=== PATIENT | male | born 1940 | race Caucasian/White ===

== ENCOUNTER → 2024-03-07 08:42 | Outpatient (REF) | payer OTHER, SELFPAY | LOC: DHVS 08:42 | PROVIDERS: ATTENDING PHYSICIAN Surgery Vascular Surgery; FAMILY PHYSICIAN Internal Medicine | DX: I65.23 Occlusion and stenosis of bilateral carotid arteries (principal) | CPT/HCPCS: 93880 ==

== ENCOUNTER 2024-07-08 20:01 | Inpatient (IN) | payer OTHER, SELFPAY ==
[2024-07-08] VITALS (10 sets, daily range): BP systolic 141–162; BP diastolic 57–90; BMI 22.3
--- NOTE | 2024-07-08 12:38 | ED.GENMED ---
ED Provider Triage
-
Patient seen by provider in Triage?: Seen in Triage
Attestation: A medical screening examination has been initiated by a qualified medical provider. Based on the assessment performed at this time, it has been determined that an emergent medical condition may exist and the patient has been informed
that further medical evaluation and possible additional diagnostic testing may be needed.
HPI: 84-year-old male presents to the emergency department with spouse for evaluation of headache, vomiting, and confusion beginning late last night. She states that he was not aware who she was and thought his mother was still alive. states
the confusion has improved as of today and currently he can answer all questions. He has also been coughing. No reported fevers at home
GENERAL: Alert , in no apparent distress
EYE: No visual abnormalities.
NECK: Trachea midline
ENT: No visible abnormalities.
LUNGS: No acute respiratory distress
NEUROLOGICAL: Alert and oriented
SKIN: Skin intact. No visible changes.
MUSCULOSKELETAL: Moving extremities normally
PSYCH: Normal and appropriate interaction.
A/P: Given the presence of headache, coughing, and vomiting will check for COVID, obtain labs including lipase and chest x-ray, at this time the patient is oriented and answering questions appropriately
This is a medical evaluation conducted in person to initiate diagnostic evaluation and provide initial therapeutics. Please see further documentation by the treating clinician.
History of Present Illness
General
Chief Complaint: Change in Mental Status
Past History
Past History
ED Past Medical History: CVA (/TIA), HTN, Hypercholesterolemia, NIDDM, Seizures and Other (Postoperative urinary retention. Obstructive sleep apnea, kidney stones)
ED Past Surgical History: Other (Eye surgery, carotid endarterectomy 06/09/20)
Social History
Tobacco: Non-smoker
Alcohol: None
Drug: None
Personal:
Living: assisted living ([facility])
Employment: Retired
Family History
Family History: Other (Reviewed and non-contributory)
Course
Orders/Labs/Results
Orders:
Orders
07/08/24 12:33
Complete Blood Count/With Diff Urgent
Comprehensive Metabolic Panel Urgent
Lipase Urgent
07/08/24 12:34
COVID-19 Antigen Urgent
Source: Nasal Swab
Urinalysis Reflex To Culture Urgent
CR Chest - 2 Views Urgent
Comment:
Reason For Exam: cough, confusion
ED Attending Note
-
Portions of this chart may have been created with voice recognition software.� Occasional wrong word or��sound alike� substitutions may have occurred due to the inherent limitations of voice recognition software.
Discharge Plan
Departure
Prescriptions:
No Action
simvastatin 20 MG tablet
20 mg PO QPM
losartan 25 MG tablet
50 mg PO DAILY
metformin 1,000 MG tablet extended release 24hr
1,000 mg PO HS
clopidogrel 75 MG tablet
75 mg PO DAILY Qty: 30 0RF
lamotrigine [Lamictal] 25 MG tablet
150 mg PO BID
cyanocobalamin (vitamin B-12) 1,000 MCG tablet
1,000 mcg PO HS
prednisolone acetate 1 % drops,suspension
1 drp RIGHT EYE DAILY
Systane Balance
1 drp BOTH EYES PRN PRN (Reason: dry eye)
tamsulosin 0.4 MG capsule
0.4 mg PO DAILY Qty: 30 0RF
Discharge Date and Time
Print Language: ARABIC
[2024-07-08 13:00] LABS: % Basophils 1.2 % (0-2); % Eosinophils 2.6 % (0-6); % Immature Granulocytes 0.4 % (0-0.5); % Monocytes 9.8 % (1.7-9.3); Absolute Basophils 0.1 10^3/uL (0-0.2); Absolute Eosinophils 0.2 10^3/uL (0-0.7); Absolute Lymphocytes 1.7 10^3/uL (1.2-3.4); Absolute Monocytes 0.9 10^3/uL (0.1-0.6); Hematocrit 33.8 % (39.0-52.0); Hemoglobin 11.1 g/dL (13.0-18.0); Mean Corp Hgb Conc. 32.8 g/dL (33.0-37.0); Mean Corpuscular Hgb 32.2 pg (27.0-31.0); Mean Platelet Volume 9.2 fL (7.4-10.4); Nucleated Red Blood Cells % 0 % (-); Platelet Count 475 10^3/uL (130-400); Red Blood Cell Count 3.45 10^6/uL (4.70-6.10); Red Cell Dist. Width 13.1 % (11.5-14.5); White Blood Cell Count 8.9 10^3/uL (4.8-10.8)
[2024-07-08 13:12] LABS: ALT (SGPT) 16 U/L (0-50); AST (SGOT) 19 U/L (17-59); Alkaline Phosphatase 77 U/L (38-126); Blood Urea Nitrogen 33 mg/dl (9-20); Carbon Dioxide 32 mmol/L (22-30); Chloride 104 mmol/L (98-107); Glucose 240 mg/dl (70-99); Lipase 39 U/L (23-300); Potassium 4.4 mmol/L (3.5-5.1); Sodium 148 mmol/L (135-145); Total Bilirubin 0.4 mg/dl (0.2-1.3); Total Protein 6.6 g/dl (6.3-8.2); eGFR 48.95
[2024-07-08 13:15] LABS: COVID-19 Antigen Negative (Negative)
--- NOTE | 2024-07-08 15:33 | EDRN ---
Pt arrives for N/, Headache and very very confused this am,started last night. Pt did not know who his was, called her his mother at one point.Fall was 2 weeks ago. Pt had 8 sunita in his head. Pt also had CT of head that was negative. D.
Laurel [employer]PER[employer] in room w/ pt. Pt was checked by security and nurses advised pt to go to ER. Pt is at [facility].
--- NOTE | 2024-07-08 15:35 | EDRN ---
Pt was 86% on RA and placed on oxygen at 4lpm by Lew Barragan NP.
--- NOTE | 2024-07-08 15:46 | ED.GENMED ---
ED Provider Triage
<Brad Mas PA-C - Last Filed: 07/09/24 10:05>
-
Patient seen by provider in Triage?: Seen in Triage
Attestation: A medical screening examination has been initiated by a qualified medical provider. Based on the assessment performed at this time, it has been determined that an emergent medical condition may exist and the patient has been informed
that further medical evaluation and possible additional diagnostic testing may be needed.
HPI: 84-year-old male presents to the emergency department with spouse for evaluation of headache, vomiting, and confusion beginning late last night. She states that he was not aware who she was and thought his mother was still alive. states
the confusion has improved as of today and currently he can answer all questions. He has also been coughing. No reported fevers at home
GENERAL: Alert , in no apparent distress
EYE: No visual abnormalities.
NECK: Trachea midline
ENT: No visible abnormalities.
LUNGS: No acute respiratory distress
NEUROLOGICAL: Alert and oriented
SKIN: Skin intact. No visible changes.
MUSCULOSKELETAL: Moving extremities normally
PSYCH: Normal and appropriate interaction.
A/P: Given the presence of headache, coughing, and vomiting will check for COVID, obtain labs including lipase and chest x-ray, at this time the patient is oriented and answering questions appropriately
This is a medical evaluation conducted in person to initiate diagnostic evaluation and provide initial therapeutics. Please see further documentation by the treating clinician.
History of Present Illness
<Dianna Barragan NP - Last Filed: 07/09/24 15:32>
General
Chief Complaint: Change in Mental Status
Source: patient
Exam Limitations: none
Time Seen by Provider: 07/08/24 15:30
Nursing documentation reviewed up to this point in time: agreed with
History of Present Illness
History of Present Illness:
Patient to ED with report of confusion. states he woke ovenight and has been disoriented since. Denies fever or chlls. reports headache, vomiting. No abdominal pain. No diarrhea. Fell 2weeks ago, hit back of head on floors. evaluated at
[facility]. CT neg for bleeing. Brought to ED today by family for eval.
Past History
<Dianna Barragan NP - Last Filed: 07/09/24 15:32>
Past History
ED Past Medical History: CVA (/TIA), HTN, Hypercholesterolemia, NIDDM, Seizures and Other (Postoperative urinary retention. Obstructive sleep apnea, kidney stones)
ED Past Surgical History: Other (Eye surgery, carotid endarterectomy 06/09/20)
Social History
Tobacco: Non-smoker
Alcohol: None
Drug: None
Personal:
Living: assisted living ([facility])
Employment: Retired
Family History
Family History: Other (Reviewed and non-contributory)
Review of Systems
<Dianna Barragan WHOLESALE DIAMOND BROKER - Last Filed: 07/09/24 15:32>
Review of Systems
Allergies reviewed?: Yes
All Other Systems: ROS reviewed and negative except as documented in HPI and ROS
Constitutional: Reports no symptoms
EENT: Reports no symptoms
Respiratory: Reports other (Pulse ox 86% RA, no pulmonary disease hx)
Cardiac: Reports no symptoms
ABD/GI: Reports nausea and vomiting
: Reports no symptoms
Musculoskeletal: Reports no symptoms
Skin: Reports no symptoms
Neurological: Reports headache, weakness and other (confusion)
Psychiatric: Reports no symptoms
Phy Exam
<Dianna Barragan NP - Last Filed: 07/09/24 15:32>
General Physical Exam
General Presentation: mild distress
General age: appears stated age
General Skin: warm and dry
General Habitus: normal
General Mental: confused
General Hydration: appears well hydrated
General Chronic Disability: contractures
Pulmonary Exam
Pulmonary Exam: chest non tender, no rhonchi, no stridor, no wheezing and no cough
Oxygen Status: room air (86%)
Gastrointestinal Exam
Gastrointestinal Exam: normal bowel sounds, non tender and soft
Mental
Mental Status: oriented to person, oriented to time and confused
Describe Speech: normal speech
Cranial
Cranial Nerves: normal
EOM (CN3/4/6): intact
Motor
Seizure Activity: none
Tremors: none
Right upper extremity: 4
Right lower extremity: 4
Left upper extremity: 4
Left lower extremity: 4
Bilateral upper extremities: 4
Bilateral lower extremities: 4
Sensory
Sensory Exam: intact
Cerebellar
Cerebellar Function: normal finger to nose
Musculoskeletal Exam
Musculoskeletal Exam: full ROM and no edema
Skin Exam
Skin Exam: normal color, warm/dry and no rash
Psychiatric Exam
Psychiatric Exam: normal mood/affect
Course
<Dianna Barragan NP - Last Filed: 07/09/24 15:32>
Orders/Labs/Results
Orders:
Orders
07/08/24 12:34
CR Chest - 2 Views Urgent
Comment:
Reason For Exam: cough, confusion
07/08/24 12:51
COVID-19 Antigen Urgent
Source: Nasal Swab
Complete Blood Count/With Diff Urgent
Comprehensive Metabolic Panel Urgent
Lipase Urgent
NT-proBNP Urgent
Comment: BNP ADDED ON BY FLOOR 3:45PM 07-08-24
Serum Osmolality Urgent
Comment: ADDON
07/08/24 14:12
CT Head W/o Iv Contrast Urgent
Comment:
Reason For Exam: confusion
07/08/24 Dinner
2000 calorie (17 carb) Diabetic
At Your Request: Non-Participating
Does patient need a safe tray?: Yes
Diabetic Diet: Sodium, 2 Gram
07/08/24 15:45
Add On- LAB Urgent
Tests Added?: BNP
07/08/24 16:20
Osmolality, Random Urine Urgent
Date Specimen was Collected: 07/08/24
Time Specimen was Collected: 16:19
Comment: ADD ON
Urinalysis Reflex To Culture Urgent
Date Specimen was Collected: 07/08/24
Time Specimen was Collected: 16:19
Urine Sodium Urgent
Date Specimen was Collected: 07/08/24
Time Specimen was Collected: 16:19
Comment: ADD ON
07/08/24 17:10
US Periph Venous LOWER Ext Colin Urgent
Reason For Exam: dyspnea
07/08/24 17:31
Procalcitonin Urgent
PCT Algorithmm Indication: Respiratory
07/08/24 17:35
ABG [Arterial Blood Gas] Urgent
%Oxygen/Room Air: 2l
07/08/24 18:34
ECG [Electrocardiogram (*1)] Stat
Reason for Study: Shortness of Breath
07/08/24 18:50
Lamotrigine (Lamictal) [S] Stat
Comment: ADDON
Troponin I Stat
07/08/24 18:51
Furosemide [Lasix] 40 mg IV NOW STA
07/08/24 18:52
Bladder Scan As Directed
Follow Bladder Retention/Intermittent Cath Algorithm?: Yes
PRN if no void in __ hours: 6
Frequency: Per Retention Algorithm
If Bladder Scan Result >: 400
then:: Straight cath
07/08/24 18:53
Straight Cath As Directed
Frequency: Per Retention Algorithm
Additional Instructions: straight cath as needed per acute urinary retention algorithm for 24 hrs
Additional Instructions: for bladder scan greater than 400 mL
07/08/24 18:56
Add On- LAB Urgent
Tests Added?: lamotrigine level
07/08/24 18:57
Admit/Transfer Patient As Directed
Co-Sign Provider:
Level of Care: Inpatient admission
Assign to:: Telemetry
Physician / Group: Azeem
Diagnosis: CHF, RICA
Reason for Telemetry: Acute Heart Failure
Date to Stop Telemetry: 07/11/24
Time to Stop Telemetry: 11:00
Reason for Hospitalization: IV diuretics
Expected length of stay greater than two midnights?: Yes
ELOS- Estimated Length of Stay in days: 3
I certify the patient meets the requirements for IP care: Yes
07/08/24 18:59
PRN Pain Medication Management As Directed
May give lesser potent ordered pain med per pt: Yes
preference::
Protocol:: Medication orders for pain may be administered in a
manner that supports deferring to patient preference
when the pt is:
- Requesting an ordered lesser potent pain medication.
Least to most potent pain medications are defined
as: acetaminophen < NSAID < tramadol < opioids
(morphine, oxycodone, hydromorphone).
- Requesting a lesser dose of the same medication IF
ORDERED.
- Requesting a less intrusive route of administration
if both routes are prescribed by the provider (PO <
IV).
07/08/24 19:00
Code Status As Directed
Resuscitation Status: Full Code
07/08/24 19:47
NEPHROLOGY CONSULT Routine
Consulting Provider: Brad Lora
Was physician already notified: Yes
Reason for consult: Hypernatremia but has pulmonary edema, concern for CHF
07/08/24 19:53
Add On- LAB Urgent
Tests Added?: urine sodium, urine osmo
07/08/24 19:54
Add On- LAB Urgent
Tests Added?: serum osmo
07/08/24 20:00
Dextrose 5%/Water 1000 ml [D5w] 1,000 ml IV 60 mls/hr
Thiamine Injection 200 mg IV DAILY
07/08/24 20:59
Troponin I Q6H
07/08/24 22:43
Dextrose 50%-Water [Dextrose 50% Syringe] 12.5 grams IV [id number] PRN
Glucagon [GlucaGen] 1 mg IM PRN PRN
07/08/24 22:43
CARDIOLOGY CONSULT Routine
Consulting Provider: Nacho Floyd
Was physician already notified: Yes
HF DIETARY CONSULT Routine
HF EDUCATOR CONSULT Routine
Comment:
Activity As Directed
Activity Level: Out of Bed-Early Mobility
Bedside Glucose Monitoring As Directed
Frequency: AC&HS
Additional Instructions:: Change to q6h if pt on TPN, tube feeding or not eating
Intake/ Output As Directed
Frequency: Per unit guidelines
Patient Education As Directed
Type: CHF folder
Comment: give on admission. Document in Interdisciplinary Education record
Sleep Apnea Assessment by RN As Directed
Comment:
Physician Instructions:
Vital Signs As Directed
Frequency: Other
Additional Instructions:: Q12 or per unit guidelines if more frequent.
Weight As Directed
Frequency: Daily
Type of Scale: Standing Scale
Comment: Daily morning weight. If unable to stand, use balanced bed scale.
Weight As Directed
Frequency: Once
Type of Scale: Standing Scale
Comment: Upon Admission. If unable to stand, use balanced bed scale.
Pulse Ox/cont/shift [RESP] Routine
Quantity: 1
Special Instructions: Daily pulse oximetry at rest. If greater than 92% at rest also obtain pulse oximetry
while ambulating as tolerated.
Ot Eval And Treat Routine
Pt Eval And Treat Routine
Activity Level: Out of Bed-Early Mobility
DX Deep Vein Thrombosis Video Routine
07/08/24 23:00
Lamotrigine [Lamictal] 200 mg PO BID
07/09/24 00:00
Heparin 5,000 units SC Q8
07/09/24 02:29
BMP [Basic Metabolic Panel] Routine
Troponin I Q6H
07/09/24 07:30
Insulin Aspart Corrective Low [Novolog Flexpen-Low Resistance] See Protocol SC AC
07/09/24 07:37
Basic Metabolic Panel IN AM
Cardiovascular Evaluation IN AM
Complete Blood Count/No Diff IN AM
Glycohemoglobin (HgbA1c) IN AM
Magnesium IN AM
TSH Reflex To Free T4 IN AM
07/09/24 08:00
Clopidogrel Bisulfate [Plavix] 75 mg PO DAILY
Dapagliflozin [Farxiga] 5 mg PO DAILY
Finasteride [Proscar] 5 mg PO DAILY
Tamsulosin [Flomax] 0.4 mg PO DAILY
07/09/24 18:00
Atorvastatin [Lipitor] 10 mg PO QPM
07/10/24 06:00
Basic Metabolic Panel IN AM
07/11/24 06:00
Basic Metabolic Panel IN AM
07/11/24 11:00
DC Protocol for Telemetry ONCE
Abnormal Lab Results
07/08/24 07/08/24 07/08/24
12:51 16:20 17:35
RBC 3.45 L 10^6/uL
(4.70-6.10)
Hgb 11.1 L g/dL
(13.0-18.0)
Hct 33.8 L %
(39.0-52.0)
MCV 98.0 H fL
(80.0-94.0)
MCH 32.2 H pg
(27.0-31.0)
MCHC 32.8 L g/dL
(33.0-37.0)
Plt Count 475 H 10^3/uL
(130-400)
Absolute Monos (auto) 0.9 H 10^3/uL
(0.1-0.6)
Lymphocytes % 19.0 L %
(20.5-51.1)
Monocytes % 9.8 H %
(1.7-9.3)
pH 7.47 H
(7.35-7.45)
pO2 82 L mmHg
(83-108)
HCO3 29.1 H mmol/L
(21-28)
ABG O2 Sat (Measured) 98.6 H %
(94-98)
Sodium 148 H mmol/L
(135-145)
Carbon Dioxide 32 H mmol/L
(22-30)
BUN 33 H mg/dl
(9-20)
Creatinine 1.4 H mg/dL
(0.7-1.3)
Glucose 240 H mg/dl
(70-99)
Serum Osmolality 314 H mOsm/kg
(275-300)
Troponin I
Urine Glucose 3+ A
(Negative)
07/08/24
18:50
RBC
Hgb
Hct
MCV
MCH
MCHC
Plt Count
Absolute Monos (auto)
Lymphocytes %
Monocytes %
pH
pO2
HCO3
ABG O2 Sat (Measured)
Sodium
Carbon Dioxide
BUN
Creatinine
Glucose
Serum Osmolality
Troponin I 0.078 H* ng/ml
Urine Glucose
07/08/24 12:51
07/08/24 12:51
Vital Signs
Initial and Last Documented VS:
Initial Vital Signs
Temp Pulse Resp BP Pulse Ox
97.6 F 87 20 160/68 89
07/08/24 12:31 07/08/24 12:31 07/08/24 12:31 07/08/24 12:31 07/08/24 12:31
Last Documented Vital Signs
Temp Pulse Resp BP Pulse Ox
97.6 F 90 22 121/55 94
07/09/24 11:38 07/09/24 11:38 07/09/24 11:38 07/09/24 11:38 07/09/24 11:38
<Lane Hhan, DO - Last Filed: 07/08/24 17:16>
Orders/Labs/Results
Orders:
Orders
07/08/24 12:34
CR Chest - 2 Views Urgent
Comment:
Reason For Exam: cough, confusion
07/08/24 12:51
COVID-19 Antigen Urgent
Source: Nasal Swab
Complete Blood Count/With Diff Urgent
Comprehensive Metabolic Panel Urgent
Lipase Urgent
NT-proBNP Urgent
Comment: BNP ADDED ON BY FLOOR 3:45PM 07-08-24
Serum Osmolality Urgent
Comment: ADDON
07/08/24 14:12
CT Head W/o Iv Contrast Urgent
Comment:
Reason For Exam: confusion
07/08/24 Dinner
2000 calorie (17 carb) Diabetic
At Your Request: Non-Participating
Does patient need a safe tray?: Yes
Diabetic Diet: Sodium, 2 Gram
07/08/24 15:45
Add On- LAB Urgent
Tests Added?: BNP
07/08/24 16:20
Osmolality, Random Urine Urgent
Date Specimen was Collected: 07/08/24
Time Specimen was Collected: 16:19
Comment: ADD ON
Urinalysis Reflex To Culture Urgent
Date Specimen was Collected: 07/08/24
Time Specimen was Collected: 16:19
Urine Sodium Urgent
Date Specimen was Collected: 07/08/24
Time Specimen was Collected: 16:19
Comment: ADD ON
07/08/24 17:10
US Periph Venous LOWER Ext Colin Urgent
Reason For Exam: dyspnea
07/08/24 17:31
Procalcitonin Urgent
PCT Algorithmm Indication: Respiratory
07/08/24 17:35
ABG [Arterial Blood Gas] Urgent
%Oxygen/Room Air: 2l
07/08/24 18:34
ECG [Electrocardiogram (*1)] Stat
Reason for Study: Shortness of Breath
07/08/24 18:50
Lamotrigine (Lamictal) [S] Stat
Comment: ADDON
Troponin I Stat
07/08/24 18:51
Furosemide [Lasix] 40 mg IV NOW STA
07/08/24 18:52
Bladder Scan As Directed
Follow Bladder Retention/Intermittent Cath Algorithm?: Yes
PRN if no void in __ hours: 6
Frequency: Per Retention Algorithm
If Bladder Scan Result >: 400
then:: Straight cath
07/08/24 18:53
Straight Cath As Directed
Frequency: Per Retention Algorithm
Additional Instructions: straight cath as needed per acute urinary retention algorithm for 24 hrs
Additional Instructions: for bladder scan greater than 400 mL
07/08/24 18:56
Add On- LAB Urgent
Tests Added?: lamotrigine level
07/08/24 18:57
Admit/Transfer Patient As Directed
Co-Sign Provider:
Level of Care: Inpatient admission
Assign to:: Telemetry
Physician / Group: Azeem
Diagnosis: CHF, RICA
Reason for Telemetry: Acute Heart Failure
Date to Stop Telemetry: 07/11/24
Time to Stop Telemetry: 11:00
Reason for Hospitalization: IV diuretics
Expected length of stay greater than two midnights?: Yes
ELOS- Estimated Length of Stay in days: 3
I certify the patient meets the requirements for IP care: Yes
07/08/24 18:59
PRN Pain Medication Management As Directed
May give lesser potent ordered pain med per pt: Yes
preference::
Protocol:: Medication orders for pain may be administered in a
manner that supports deferring to patient preference
when the pt is:
- Requesting an ordered lesser potent pain medication.
Least to most potent pain medications are defined
as: acetaminophen < NSAID < tramadol < opioids
(morphine, oxycodone, hydromorphone).
- Requesting a lesser dose of the same medication IF
ORDERED.
- Requesting a less intrusive route of administration
if both routes are prescribed by the provider (PO <
IV).
07/08/24 19:00
Code Status As Directed
Resuscitation Status: Full Code
07/08/24 19:47
NEPHROLOGY CONSULT Routine
Consulting Provider: Brad Lora
Was physician already notified: Yes
Reason for consult: Hypernatremia but has pulmonary edema, concern for CHF
07/08/24 19:53
Add On- LAB Urgent
Tests Added?: urine sodium, urine osmo
07/08/24 19:54
Add On- LAB Urgent
Tests Added?: serum osmo
07/08/24 20:00
Dextrose 5%/Water 1000 ml [D5w] 1,000 ml IV 60 mls/hr
Thiamine Injection 200 mg IV DAILY
07/08/24 20:59
Troponin I Q6H
07/08/24 22:43
Dextrose 50%-Water [Dextrose 50% Syringe] 12.5 grams IV [id number] PRN
Glucagon [GlucaGen] 1 mg IM PRN PRN
07/08/24 22:43
CARDIOLOGY CONSULT Routine
Consulting Provider: Nacho Floyd
Was physician already notified: Yes
HF DIETARY CONSULT Routine
HF EDUCATOR CONSULT Routine
Comment:
Activity As Directed
Activity Level: Out of Bed-Early Mobility
Bedside Glucose Monitoring As Directed
Frequency: AC&HS
Additional Instructions:: Change to q6h if pt on TPN, tube feeding or not eating
Intake/ Output As Directed
Frequency: Per unit guidelines
Patient Education As Directed
Type: CHF folder
Comment: give on admission. Document in Interdisciplinary Education record
Sleep Apnea Assessment by RN As Directed
Comment:
Physician Instructions:
Vital Signs As Directed
Frequency: Other
Additional Instructions:: Q12 or per unit guidelines if more frequent.
Weight As Directed
Frequency: Daily
Type of Scale: Standing Scale
Comment: Daily morning weight. If unable to stand, use balanced bed scale.
Weight As Directed
Frequency: Once
Type of Scale: Standing Scale
Comment: Upon Admission. If unable to stand, use balanced bed scale.
Pulse Ox/cont/shift [RESP] Routine
Quantity: 1
Special Instructions: Daily pulse oximetry at rest. If greater than 92% at rest also obtain pulse oximetry
while ambulating as tolerated.
Ot Eval And Treat Routine
Pt Eval And Treat Routine
Activity Level: Out of Bed-Early Mobility
DX Deep Vein Thrombosis Video Routine
07/08/24 23:00
Lamotrigine [Lamictal] 200 mg PO BID
07/09/24 00:00
Heparin 5,000 units SC Q8
07/09/24 02:29
BMP [Basic Metabolic Panel] Routine
Troponin I Q6H
07/09/24 07:30
Insulin Aspart Corrective Low [Novolog Flexpen-Low Resistance] See Protocol SC AC
07/09/24 07:37
Basic Metabolic Panel IN AM
Cardiovascular Evaluation IN AM
Complete Blood Count/No Diff IN AM
Glycohemoglobin (HgbA1c) IN AM
Magnesium IN AM
TSH Reflex To Free T4 IN AM
07/09/24 08:00
Clopidogrel Bisulfate [Plavix] 75 mg PO DAILY
Dapagliflozin [Farxiga] 5 mg PO DAILY
Finasteride [Proscar] 5 mg PO DAILY
Tamsulosin [Flomax] 0.4 mg PO DAILY
07/09/24 18:00
Atorvastatin [Lipitor] 10 mg PO QPM
07/10/24 06:00
Basic Metabolic Panel IN AM
07/11/24 06:00
Basic Metabolic Panel IN AM
07/11/24 11:00
DC Protocol for Telemetry ONCE
Abnormal Lab Results
07/08/24 07/08/24 07/08/24
12:51 16:20 17:35
RBC 3.45 L 10^6/uL
(4.70-6.10)
Hgb 11.1 L g/dL
(13.0-18.0)
Hct 33.8 L %
(39.0-52.0)
MCV 98.0 H fL
(80.0-94.0)
MCH 32.2 H pg
(27.0-31.0)
MCHC 32.8 L g/dL
(33.0-37.0)
Plt Count 475 H 10^3/uL
(130-400)
Absolute Monos (auto) 0.9 H 10^3/uL
(0.1-0.6)
Lymphocytes % 19.0 L %
(20.5-51.1)
Monocytes % 9.8 H %
(1.7-9.3)
pH 7.47 H
(7.35-7.45)
pO2 82 L mmHg
(83-108)
HCO3 29.1 H mmol/L
(21-28)
ABG O2 Sat (Measured) 98.6 H %
(94-98)
Sodium 148 H mmol/L
(135-145)
Carbon Dioxide 32 H mmol/L
(22-30)
BUN 33 H mg/dl
(9-20)
Creatinine 1.4 H mg/dL
(0.7-1.3)
Glucose 240 H mg/dl
(70-99)
Serum Osmolality 314 H mOsm/kg
(275-300)
Troponin I
Urine Glucose 3+ A
(Negative)
07/08/24
18:50
RBC
Hgb
Hct
MCV
MCH
MCHC
Plt Count
Absolute Monos (auto)
Lymphocytes %
Monocytes %
pH
pO2
HCO3
ABG O2 Sat (Measured)
Sodium
Carbon Dioxide
BUN
Creatinine
Glucose
Serum Osmolality
Troponin I 0.078 H* ng/ml
Urine Glucose
07/08/24 12:51
07/08/24 12:51
Vital Signs
Initial and Last Documented VS:
Initial Vital Signs
Temp Pulse Resp BP Pulse Ox
97.6 F 87 20 160/68 89
07/08/24 12:31 07/08/24 12:31 07/08/24 12:31 07/08/24 12:31 07/08/24 12:31
Last Documented Vital Signs
Temp Pulse Resp BP Pulse Ox
97.6 F 90 22 121/55 94
07/09/24 11:38 07/09/24 11:38 07/09/24 11:38 07/09/24 11:38 07/09/24 11:38
<Brad Mas PA-C - Last Filed: 07/09/24 10:05>
Orders/Labs/Results
Orders:
Orders
07/08/24 12:34
CR Chest - 2 Views Urgent
Comment:
Reason For Exam: cough, confusion
07/08/24 12:51
COVID-19 Antigen Urgent
Source: Nasal Swab
Complete Blood Count/With Diff Urgent
Comprehensive Metabolic Panel Urgent
Lipase Urgent
NT-proBNP Urgent
Comment: BNP ADDED ON BY FLOOR 3:45PM 07-08-24
Serum Osmolality Urgent
Comment: ADDON
07/08/24 14:12
CT Head W/o Iv Contrast Urgent
Comment:
Reason For Exam: confusion
07/08/24 Dinner
2000 calorie (17 carb) Diabetic
At Your Request: Non-Participating
Does patient need a safe tray?: Yes
Diabetic Diet: Sodium, 2 Gram
07/08/24 15:45
Add On- LAB Urgent
Tests Added?: BNP
07/08/24 16:20
Osmolality, Random Urine Urgent
Date Specimen was Collected: 07/08/24
Time Specimen was Collected: 16:19
Comment: ADD ON
Urinalysis Reflex To Culture Urgent
Date Specimen was Collected: 07/08/24
Time Specimen was Collected: 16:19
Urine Sodium Urgent
Date Specimen was Collected: 07/08/24
Time Specimen was Collected: 16:19
Comment: ADD ON
07/08/24 17:10
US Periph Venous LOWER Ext Colin Urgent
Reason For Exam: dyspnea
07/08/24 17:31
Procalcitonin Urgent
PCT Algorithmm Indication: Respiratory
07/08/24 17:35
ABG [Arterial Blood Gas] Urgent
%Oxygen/Room Air: 2l
07/08/24 18:34
ECG [Electrocardiogram (*1)] Stat
Reason for Study: Shortness of Breath
07/08/24 18:50
Lamotrigine (Lamictal) [S] Stat
Comment: ADDON
Troponin I Stat
07/08/24 18:51
Furosemide [Lasix] 40 mg IV NOW STA
07/08/24 18:52
Bladder Scan As Directed
Follow Bladder Retention/Intermittent Cath Algorithm?: Yes
PRN if no void in __ hours: 6
Frequency: Per Retention Algorithm
If Bladder Scan Result >: 400
then:: Straight cath
07/08/24 18:53
Straight Cath As Directed
Frequency: Per Retention Algorithm
Additional Instructions: straight cath as needed per acute urinary retention algorithm for 24 hrs
Additional Instructions: for bladder scan greater than 400 mL
07/08/24 18:56
Add On- LAB Urgent
Tests Added?: lamotrigine level
07/08/24 18:57
Admit/Transfer Patient As Directed
Co-Sign Provider:
Level of Care: Inpatient admission
Assign to:: Telemetry
Physician / Group: Azeem
Diagnosis: CHF, RICA
Reason for Telemetry: Acute Heart Failure
Date to Stop Telemetry: 07/11/24
Time to Stop Telemetry: 11:00
Reason for Hospitalization: IV diuretics
Expected length of stay greater than two midnights?: Yes
ELOS- Estimated Length of Stay in days: 3
I certify the patient meets the requirements for IP care: Yes
07/08/24 18:59
PRN Pain Medication Management As Directed
May give lesser potent ordered pain med per pt: Yes
preference::
Protocol:: Medication orders for pain may be administered in a
manner that supports deferring to patient preference
when the pt is:
- Requesting an ordered lesser potent pain medication.
Least to most potent pain medications are defined
as: acetaminophen < NSAID < tramadol < opioids
(morphine, oxycodone, hydromorphone).
- Requesting a lesser dose of the same medication IF
ORDERED.
- Requesting a less intrusive route of administration
if both routes are prescribed by the provider (PO <
IV).
07/08/24 19:00
Code Status As Directed
Resuscitation Status: Full Code
07/08/24 19:47
NEPHROLOGY CONSULT Routine
Consulting Provider: Brad Lora
Was physician already notified: Yes
Reason for consult: Hypernatremia but has pulmonary edema, concern for CHF
07/08/24 19:53
Add On- LAB Urgent
Tests Added?: urine sodium, urine osmo
07/08/24 19:54
Add On- LAB Urgent
Tests Added?: serum osmo
07/08/24 20:00
Dextrose 5%/Water 1000 ml [D5w] 1,000 ml IV 60 mls/hr
Thiamine Injection 200 mg IV DAILY
07/08/24 20:59
Troponin I Q6H
07/08/24 22:43
Dextrose 50%-Water [Dextrose 50% Syringe] 12.5 grams IV [id number] PRN
Glucagon [GlucaGen] 1 mg IM PRN PRN
07/08/24 22:43
CARDIOLOGY CONSULT Routine
Consulting Provider: Nacho Floyd
Was physician already notified: Yes
HF DIETARY CONSULT Routine
HF EDUCATOR CONSULT Routine
Comment:
Activity As Directed
Activity Level: Out of Bed-Early Mobility
Bedside Glucose Monitoring As Directed
Frequency: AC&HS
Additional Instructions:: Change to q6h if pt on TPN, tube feeding or not eating
Intake/ Output As Directed
Frequency: Per unit guidelines
Patient Education As Directed
Type: CHF folder
Comment: give on admission. Document in Interdisciplinary Education record
Sleep Apnea Assessment by RN As Directed
Comment:
Physician Instructions:
Vital Signs As Directed
Frequency: Other
Additional Instructions:: Q12 or per unit guidelines if more frequent.
Weight As Directed
Frequency: Daily
Type of Scale: Standing Scale
Comment: Daily morning weight. If unable to stand, use balanced bed scale.
Weight As Directed
Frequency: Once
Type of Scale: Standing Scale
Comment: Upon Admission. If unable to stand, use balanced bed scale.
Pulse Ox/cont/shift [RESP] Routine
Quantity: 1
Special Instructions: Daily pulse oximetry at rest. If greater than 92% at rest also obtain pulse oximetry
while ambulating as tolerated.
Ot Eval And Treat Routine
Pt Eval And Treat Routine
Activity Level: Out of Bed-Early Mobility
DX Deep Vein Thrombosis Video Routine
07/08/24 23:00
Lamotrigine [Lamictal] 200 mg PO BID
07/09/24 00:00
Heparin 5,000 units SC Q8
07/09/24 02:29
BMP [Basic Metabolic Panel] Routine
Troponin I Q6H
07/09/24 07:30
Insulin Aspart Corrective Low [Novolog Flexpen-Low Resistance] See Protocol SC AC
07/09/24 07:37
Basic Metabolic Panel IN AM
Cardiovascular Evaluation IN AM
Complete Blood Count/No Diff IN AM
Glycohemoglobin (HgbA1c) IN AM
Magnesium IN AM
TSH Reflex To Free T4 IN AM
07/09/24 08:00
Clopidogrel Bisulfate [Plavix] 75 mg PO DAILY
Dapagliflozin [Farxiga] 5 mg PO DAILY
Finasteride [Proscar] 5 mg PO DAILY
Tamsulosin [Flomax] 0.4 mg PO DAILY
07/09/24 18:00
Atorvastatin [Lipitor] 10 mg PO QPM
07/10/24 06:00
Basic Metabolic Panel IN AM
07/11/24 06:00
Basic Metabolic Panel IN AM
07/11/24 11:00
DC Protocol for Telemetry ONCE
Abnormal Lab Results
07/08/24 07/08/24 07/08/24
12:51 16:20 17:35
RBC 3.45 L 10^6/uL
(4.70-6.10)
Hgb 11.1 L g/dL
(13.0-18.0)
Hct 33.8 L %
(39.0-52.0)
MCV 98.0 H fL
(80.0-94.0)
MCH 32.2 H pg
(27.0-31.0)
MCHC 32.8 L g/dL
(33.0-37.0)
Plt Count 475 H 10^3/uL
(130-400)
Absolute Monos (auto) 0.9 H 10^3/uL
(0.1-0.6)
Lymphocytes % 19.0 L %
(20.5-51.1)
Monocytes % 9.8 H %
(1.7-9.3)
pH 7.47 H
(7.35-7.45)
pO2 82 L mmHg
(83-108)
HCO3 29.1 H mmol/L
(21-28)
ABG O2 Sat (Measured) 98.6 H %
(94-98)
Sodium 148 H mmol/L
(135-145)
Carbon Dioxide 32 H mmol/L
(22-30)
BUN 33 H mg/dl
(9-20)
Creatinine 1.4 H mg/dL
(0.7-1.3)
Glucose 240 H mg/dl
(70-99)
Serum Osmolality 314 H mOsm/kg
(275-300)
Troponin I
Urine Glucose 3+ A
(Negative)
07/08/24
18:50
RBC
Hgb
Hct
MCV
MCH
MCHC
Plt Count
Absolute Monos (auto)
Lymphocytes %
Monocytes %
pH
pO2
HCO3
ABG O2 Sat (Measured)
Sodium
Carbon Dioxide
BUN
Creatinine
Glucose
Serum Osmolality
Troponin I 0.078 H* ng/ml
Urine Glucose
07/08/24 12:51
07/08/24 12:51
Vital Signs
Initial and Last Documented VS:
Initial Vital Signs
Temp Pulse Resp BP Pulse Ox
97.6 F 87 20 160/68 89
07/08/24 12:31 07/08/24 12:31 07/08/24 12:31 07/08/24 12:31 07/08/24 12:31
Last Documented Vital Signs
Temp Pulse Resp BP Pulse Ox
97.6 F 90 22 121/55 94
07/09/24 11:38 07/09/24 11:38 07/09/24 11:38 07/09/24 11:38 07/09/24 11:38
<Dianna Barragan NP - Last Filed: 07/09/24 15:32>
MDM/Problems Addressed
Differential Diagnosis Includes:
Patient to ED with new onset confusion, vomiting, poor appetite Symptoms started overnight and continue today. Evaluated by staff at [facility] nd sent to ED due to low pulse ox. Pulse ox 86% RA.No history of lung disease. He denies any
chestpain/pressure. SOB. Labs reviewed. Elevated BMP noted as well ast CXR report of mild pulmonary edema. No extremity edema noted LCTA. Case discussed with Dr. Hahn who aslo evaluated his patient. Will check US to r/o DVT, procal to r/o
pneumonia.
Includes but not limited to: Hypoxia: infectious process/pneumonia, PE
Conrusion: Hypoxia, infection, CVA
<Dianna Barragan NP - Last Filed: 07/09/24 15:32>
*Radiology
Radiology exam reviewed: radiology read reviewed
*Pulse Oximetry
Patient hypoxic: yes
<Brad Mas PA-C - Last Filed: 07/09/24 10:05>
*Critical Care Note
Total Time (30-74mins, 75-104mins- exclusive of procedures): Not Applicable
ED Attending Note
<Dianna Barragan NP - Last Filed: 07/09/24 15:32>
-
Portions of this chart may have been created with voice recognition software.� Occasional wrong word or��sound alike� substitutions may have occurred due to the inherent limitations of voice recognition software.
<Lane Hahn DO - Last Filed: 07/08/24 17:16>
ED Attending Note
Patient seen and examined by attending physician: Yes
I performed the substantive portion of visit, reviewed & personally made and approve the management plan that is documented in note by myself or YIN.: Yes
ED Attending Note:
Seen with WHOLESALE DIAMOND BROKER examined independently 84-year-old male presents with fatigue confusion headache nausea vomiting clinically I do not suspect he is volume overloaded despite his chest x-ray proBNP will check procalcitonin and bilateral lower extremity
Dopplers and ABG cosideration for starting some fluids
Discharge Plan
Departure
Patient Disposition: Admit
Date of Disposition: 07/08/24
Time of Disposition: 17:38
Presentation/result/management discussed w/ accepting MD/DO: Hospitalist
Patient with high blood pressure during this ER visit?: No
Condition: Fair
Discharge Problem:
Hypoxia, Acute confusion
Interventions
Interventions:
*Risk Screen - Suicide Last Done: 07/08/24 23:00
*General Assessment Last Done: 07/08/24 15:35
*Neglect/Abuse Screening Last Done: 07/08/24 23:07
ED- Fall Risk Assessment Last Done: 07/08/24 16:22
*ED COVID-19 Vaccine History Last Done: 07/08/24 23:00
*Nursing Disposition Last Done: 07/08/24 23:07
ED- Pulmonary Assessment Last Done: 07/08/24 16:22
ED-Psychological Assessment Last Done: 07/08/24 23:08
ED- Neurological Assessment Last Done: 07/08/24 16:22
ED- Cardiac Assessment Last Done: 07/08/24 23:08
ED Swallowing Screen Last Done: 07/08/24 16:22
Discharge Date and Time
Discharge Date/Time: 07/08/24 22:50
[2024-07-08 16:35] LABS: Urine Albumin Trace (Neg - Trace); Urine Bilirubin Negative (Negative); Urine Character Clear (Clear); Urine Color Yellow; Urine Glucose 3+ (Negative); Urine Ketone Negative (Negative); Urine Leukocyte Negative (Negative); Urine Nitrite Negative (Negative); Urine Occult Blood Negative (Negative); Urine Urobilinogen Negative (Neg - 1+)
[2024-07-08 16:36] LABS: NT-proBNP 8790 pg/ml
--- NOTE | 2024-07-08 17:11 | EDRN ---
Pt is declining IV access and stating he wants to go home, does not want to be admitted.
--- NOTE | 2024-07-08 17:32 | EDRN ---
Procalcitonin drawn and sent at this time.
--- NOTE | 2024-07-08 17:42 | EDRN ---
Resp Therapist in room attempting to draw ABG at this time.
--- NOTE | 2024-07-08 17:47 | EDRN ---
ABG drawn and sent by resp therapist.
[2024-07-08 17:50] LABS: HCO3 29.1 mmol/L (21-28); O2 Saturation % 98.6 % (94-98); PCO2 40 mmHg (35-48); PO2 82 mmHg (83-108); pH 7.47 (7.35-7.45)
[2024-07-08 17:51] LABS: O2 Therapy %Oxygen/Room Air 2l
[2024-07-08 18:10] LABS: Procalcitonin < 0.05 ng/ml (0.0-0.25)
--- NOTE | 2024-07-08 18:33 | EDRN ---
Deepti BAKER in room w/pt, who just fed pt a boxed lunch at this time.
--- NOTE | 2024-07-08 18:43 | HPS.HSE ---
Family Physician
-
Family Physician: Nacho Hernandez
Chief Complaint
-
Confusion
History of Present Illness
Patient is an 84 y/o male past medical history of PAD, Diabetes Mellitus, Seizure Disorder and BPH who presents with confusion. Additional history is obtained from patient's at the bedside. Patient awoke in the middle of the night, and was
noted to be disoriented. He repeated asked about things from his childhood which is very unusual for the patient. noted patient to be very weak this morning. Upon arrival to the emergency department patient was found to be hypoxic with pulse
ox 86% on RA. Patient is an unreliable historian at the present time but denies cough, chest pain, palpitations or shortness of breath.
Medical History
Past Medical History
Past Medical History: Reports Other
Additional Past Medical History:
Peripheral Arterial Disease s/p Right Carotid Stent
Diabetes Mellitus, Type II
Hyperlipidemia
Seizure Disorder
BPH
Past Surgical History: Reports Other
Additional Past Surgical History:
Appendectomy
Right Carotid Artery Stent
Social History
Tobacco: Former Smoker (Quit about 10-15 years ago)
Alcohol: Occasional (1-2 drinks per week)
Personal:
Living: Other (Independent Apartment at [place] [facility] with )
Family History
Family History: Not pertinent
Allergies / Home Medications
Allergies reflects when Allergies were last updated in [facility].
Home Medications with original date entered in [facility]
Allergy/Medication List:
Allergies
Allergy/AdvReac Type Severity Reaction Status Date / Time
No Known Allergies Allergy Verified 07/08/24 12:42
Home Medications
simvastatin 20 mg tablet 20 mg PO QPM High cholesterol 08/10/15
clopidogrel 75 mg tablet 75 mg PO DAILY ##30 08/11/15
cyanocobalamin (vitamin B-12) 1,000 mcg tablet 5,000 mcg PO DAILY Supplement 05/25/20
propylene glycol 0.6 % eye drops (Systane Balance) 1 drp BOTH EYES PRN PRN dry eyes ##0 05/25/20
tamsulosin 0.4 mg capsule 0.4 mg PO DAILY #30 caps 06/11/20
cholecalciferol (vitamin D3) 25 mcg (1,000 unit) tablet 25 mcg PO DAILY 07/08/24
dapagliflozin propanediol 5 mg tablet (Farxiga) 5 mg PO DAILY 07/08/24
finasteride 5 mg tablet 5 mg PO DAILY 07/08/24
lamotrigine 200 mg tablet 200 mg PO BID 07/08/24
metformin 1,000 mg tablet 1,000 mg PO QPM 07/08/24
Review of Systems
-
A 12 point ROS was completed and negative except as noted: Yes
Constitutional: Denies Fever or Chills
Respiratory: Denies Cough or Trouble Breathing
Cardiac: Denies Chest Pain or Palpitations
Physical Exam
Vital Signs
Vital Signs
Temp Pulse Resp BP Pulse Ox
97.6 F 82 18 145/65 95
07/08/24 12:31 07/08/24 17:30 07/08/24 17:30 07/08/24 17:00 07/08/24 17:00
Physical Exam
General: Comfortable and Conversant
HEENT: Anicteric, Moist mucous membranes and Oxygen (Nasal Cannula)
Respiratory: Rales (Bilaterally) and Decreased Breath Sounds (Bilateral Bases); No Accessory Resp Muscle Use
Cardiac: S1/S2 and Regular Rhythm; No Murmur
GI: Soft, Non Tender and Other (Soft hernia)
Musculoskeletal: No Clubbing and No Edema
Skin: Warm and Dry
Neuro: Awake, Alert and Nonfocal/grossly intact
Psych: Calm
Laboratory Results
-
07/08/24 12:51
07/08/24 12:51
Laboratory Results
pH 7.47 (7.35-7.45) H 07/08/24 17:35
pCO2 40 mmHg (35-48) 07/08/24 17:35
pO2 82 mmHg (83-108) L 07/08/24 17:35
HCO3 29.1 mmol/L (21-28) H 07/08/24 17:35
Total Bilirubin 0.4 mg/dl (0.2-1.3) 07/08/24 12:51
AST 19 U/L (17-59) 07/08/24 12:51
ALT 16 U/L (0-50) 07/08/24 12:51
Alkaline Phosphatase 77 U/L (38-126) 07/08/24 12:51
Lipase 39 U/L (23-300) 07/08/24 12:51
Chest X-Ray:
Radiographic findings highly suggestive of pulmonary edema pattern. Small bilateral pleural effusions.
Patchy parenchymal opacities within both lower lungs, main differential considerations of atelectasis and/or edema. Pneumonia could have a similar appearance, but felt to be less likely.
Data Reviewed
-
Diagnostic Radiology: Report Reviewed by me
Lab Data: Labs Reviewed by me
Impression/Plan
-
Acute Hypoxic Respiratory Insufficiency secondary to CHF and Pleural Effusion
-Continue supplemental oxygen
Acute Heart Failure, unknown type
-Consult Cardiology
-Check Echocardiogram
-Check Troponin and ECG
-Give Lasix 40mg IV Now - Hold on further diuretics in setting of elevated creatinine
Elevated Creatinine, suspect RICA
-Family denies any known kidney disease
-Suspect renal function will improve with diuresis
-Check bladder scan
-Recheck creatinine in AM
Peripheral Arterial Disease s/p Right Carotid Stent
-Continue Plavix
Diabetes Mellitus, Type II
-Check HgbA1c
-Hold metformin
-Continue Farxiga
-Monitor sugars and continue coverage insulin
Hyperlipidemia
-Continue simvastatin
Seizure Disorder
-Check Lamictal level due to confusion, though suspect confusion is related to hypoxia
-Continue Lamictal
BPH
-Continue tamsulosin and finasteride
DVT proph: SC Heparin
Code Status: Full Code
[2024-07-08] MEDS: LASIX 40 MG IV (18:59)
[2024-07-08 19:23] LABS: Troponin I 0.078 ng/ml
--- NOTE | 2024-07-08 19:50 | W.PN.UPDATE ---
Update Note
Progress Note Update
This note serves as an addendum to the H&P by Tami Robbins on July 08, 2024.
History of Presenting Illness
84 y/o male with past medical history of PAD, Diabetes Mellitus, Seizure Disorder and BPH who presented with confusion. Patient awoke in the middle of the night, and was noted to be disoriented and repeatedly asked about things from his childhood
which was very unusual for the patient. noted patient to be very weak this morning. Upon arrival to the emergency department patient was found to be hypoxic with pulse ox 86% on RA. Patient is an unreliable historian at the present time but
denies cough, chest pain, palpitations or shortness of breath.
Physical Exam
General: Not in acute distress
HEENT: Anicteric, Moist mucous membranes and Oxygen (Nasal Cannula)
Respiratory: Rales (Bilaterally) and Decreased Breath Sounds (Bilateral Bases)
Cardiac: S1/S2 and Regular Rhythm
GI: Soft, Non Tender and Other (Soft hernia)
Musculoskeletal: No Edema
Skin: Warm and Dry
Neuro: Awake, Alert and Nonfocal/grossly intact
Psych: Calm
Assessment/Plan
Acute Hypoxic Respiratory Insufficiency suspected secondary to CHF and Pleural Effusions
Concern for Atelectasis on Chest X-Ray
-Continue supplemental oxygen
Concern for Toxic Metabolic Encephalopathy
Intermittent Agitation
-1:1 Sitter and Fall Precautions (he was trying to get up out of bed)
-Treat electrolyte disturbances and causes of hypoxia
Acute Heart Failure, unknown type
Elevated proBNP
-Consult Cardiology, appreciate their evaluation and recommendations
-Check Echocardiogram
-Check Troponin and ECG
-Give Lasix 40mg IV Now - Hold on further diuretics in setting of elevated creatinine
Hypernatremia
-Suspected dehydration
-Spoke with nephrology today, okay to start patient on D5W at 60 cc/hr in the setting of pulmonary edema and possible CHF
-IV thiamine given confusion and since will be getting D5W IV fluids
Elevated Creatinine, suspect RICA, prerenal
-Family denies any known kidney disease
-Check bladder scan
-Recheck creatinine in AM
Peripheral Arterial Disease s/p Right Carotid Stent
-Continue Plavix
Diabetes Mellitus, Type II
-Check HgbA1c
-Hold metformin
-Continue Farxiga
-Monitor sugars and continue coverage insulin
Hyperlipidemia
-Continue simvastatin
Seizure Disorder
-Check Lamictal level due to confusion, though suspect confusion is related to hypoxia
-Continue Lamictal
BPH
-Continue tamsulosin and finasteride
DVT proph: SC Heparin
Code Status: Full Code
[2024-07-08 20:13] LABS: Osmolality Urine 577 mOsm/kg (300-900)
[2024-07-08 20:25] LABS: Osmolality Serum 314 mOsm/kg (275-300)
[2024-07-08 20:30] LABS: Urine Sodium 59 mmol/L (30-90)
[2024-07-08] MEDS: THIAMINE INJECTION 200 MG IV (20:32)
[2024-07-08] MEDS: D5W 1000 IV (20:33)
[2024-07-08] MEDS: HALDOL 1 MG IV (22:53)
[2024-07-08] MEDS: HEPARIN 5000 UNITS SC (23:59)
[2024-07-09 00:04] LABS: Glucose - Point of Care 229 mg/dl (70-99)
[2024-07-09] MEDS: LAMICTAL PO ×5 (02:45→21:50)
[2024-07-09 03:25] LABS: Blood Urea Nitrogen 34 mg/dl (9-20); Calcium 9.5 mg/dl (8.4-10.2); Carbon Dioxide 31 mmol/L (22-30); Chloride 104 mmol/L (98-107); Estimated Creatinine Clearance 38 ml/min; Glucose 223 mg/dl (70-99); Potassium 3.7 mmol/L (3.5-5.1); Sodium 148 mmol/L (135-145); eGFR 48.95
[2024-07-09 03:40] LABS: Troponin I 0.091 ng/ml
[2024-07-09 03:59] VITALS: BP 163/80
[2024-07-09 07:38] LABS: Glucose - Point of Care 208 mg/dl (70-99)
[2024-07-09 07:58] LABS: Hematocrit 36.9 % (39.0-52.0); Hemoglobin 12.1 g/dL (13.0-18.0); Mean Corp Hgb Conc. 32.8 g/dL (33.0-37.0); Mean Corpuscular Hgb 33.2 pg (27.0-31.0); Mean Corpuscular Volume 101.1 fL (80.0-94.0); Mean Platelet Volume 9.4 fL (7.4-10.4); Platelet Count 532 10^3/uL (130-400); Red Blood Cell Count 3.65 10^6/uL (4.70-6.10); Red Cell Dist. Width 12.8 % (11.5-14.5)
--- NOTE | 2024-07-09 08:22 | CON.CAR ---
Addendum entered and electronically signed by Brandan Sal MD 07/09/24 11:35:
I saw and examined the patient.
The Automobile Body Worker's note was reviewed and I agree with the note.
Comment:
GEN: No distress, awake, delirious
HEENT: supple, anicteric, mmm
LUNGS: CTA, no wheezes/rales
CV: Reg, S1/S2, 1/6 syst LSB, no gallop
ABD: soft, BS+, NT/ND
EXT: No edema
NEURO:moving all extremities
SKIN: No rash
Plan:
84-year-old male with past medical history of carotid artery disease, diabetes, seizures and UTIs presents with change in mental status, delirium, and confusion. We are asked to see him to evaluate him for hypoxemia and possible acute heart failure
with unknown ejection fraction. He was also found to have an abnormal troponin of 0.1. The patient is currently delirious and unable to offer a history. According to his he has no known cardiac history and denies any chest pains although has
complained of some shortness of breath. He had a recent hospitalization 2 weeks ago where he fell and hit his head and was evaluated at [place]. Head CT here at [facility] has no acute findings only atrophy.
Continue one-to-one. Recommend neurology evaluation regarding delirium. Possible seizure?
Will need to check an echocardiogram but unable to do at this time.
Start Lasix 40 mg IV daily and follow volume status.
EKG reveals likely sinus tachycardia but will have electrophysiology review regarding possible atrial arrhythmia.
Will add carvedilol 3.125 mg p.o. twice daily and follow on telemetry. Neupro continue Plavix and atorvastatin.
Original Note:
Consultation
Consultation Request
Date/Time Consultation Requested: 07/08/2024
Date/Time Consultation Performed: 07/09/2024
Requesting Provider: Dr. Gann
Performing Provider: Sarah Hanson PA-C for Dr. Sal
Reason for Consultation: Pulmonary edema, abnormal troponin
Medical History
-
History of Present Illness:
Patient is an 84 y/o male past medical history of PAD, Diabetes Mellitus, Seizure Disorder, history of UTI and BPH who presented 07/08/2024 with altered mental status and confusion. Patient apparently suffered a fall 2 weeks ago and hit back of head
on floor and was evaluated at [facility]. 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 He
was found to be hypoxic with pulse ox of 86% on room air. Chest x-ray demonstrated small bilateral effusions with increased interstitial markings possibly atelectasis versus pulmonary edema. proBNP was found to be elevated at 8790 initial troponin
0.078. EKG showed sinus tachycardia with right bundle branch block. Pro-Loc was negative. UA did not suggest UTI. Head CT demonstrated moderate atrophy without acute abnormality. Patient was given 1 dose of IV Lasix 40 mg.
Cardiology being asked to see patient for concern for heart failure. At time of this evaluation patient is confused and unable to provide history. He is in restraints with one-to-one watch and attempts to hit and kick me while attempting to
examine him.
Past medical history:
Peripheral Arterial Disease
s/p Right Carotid Stent
Diabetes Mellitus, Type II
Hyperlipidemia
Seizure Disorder on Lamitrigine, Davies
BPH
Appendectomy
Right Carotid Artery Stent
Past Medical History
Past Medical History: Other (see HPI)
Past Surgical History: Appendectomy, Cardiac and Other (Right carotid stent)
Social History
Tobacco: Former Smoker (Quit 10 to 15 years ago)
Alcohol: Occasional (1-2 drinks per week)
Drug: None
Personal:
Living: With Family (Independent living at [facility])
Family History
Family History: Unable to Obtain
Allergies / Home Medications
Allergy/AdvReac Type Severity Reaction Status Date / Time
No Known Allergies Allergy Verified 07/08/24 12:42
�Medication �Instructions �Recorded �Confirmed �Type
simvastatin 20 mg tablet 20 mg PO QPM High cholesterol 08/10/15 07/08/24 History
clopidogrel 75 mg tablet 75 mg PO DAILY ##30 08/11/15 07/08/24 Rx
cyanocobalamin (vitamin B-12) 5,000 mcg PO DAILY Supplement 05/25/20 07/08/24 History
1,000 mcg tablet
propylene glycol 0.6 % eye drops 1 drp BOTH EYES PRN PRN dry eyes 05/25/20 07/08/24 History
(Systane Balance) ##0
tamsulosin 0.4 mg capsule 0.4 mg PO DAILY #30 caps 06/11/20 07/08/24 Rx
cholecalciferol (vitamin D3) 25 25 mcg PO DAILY 07/08/24 07/08/24 History
mcg (1,000 unit) tablet
dapagliflozin propanediol 5 mg 5 mg PO DAILY 07/08/24 07/08/24 History
tablet (Farxiga)
finasteride 5 mg tablet 5 mg PO DAILY 07/08/24 07/08/24 History
lamotrigine 200 mg tablet 200 mg PO BID 07/08/24 07/08/24 History
metformin 1,000 mg tablet 1,000 mg PO QPM 07/08/24 07/08/24 History
Review of Systems
-
History Source: Patient
All other systems: Negative unless noted
Physical Exam
Vital Signs
Temp Pulse Resp BP Pulse Ox
98.2 F 90 20 163/80 95
07/09/24 03:59 07/09/24 03:59 07/09/24 03:59 07/09/24 03:59 07/09/24 03:59
Exam limited as patient unwilling to let me examine him as he is attempting to hit and kick may
GEN: Very confused, combative, yelling, in restraints
HEENT: supple, anicteric, mmm
LUNGS: Faint crackles at bases anteriorly
CV: Reg, tachycardic, S1/S2, 1/6 syst murmur
ABD: soft, BS+, NT/ND
EXT: No edema, clubbing or cyanosis
: Indwelling Ledesma
NEURO: Confused, unable to answer questions, yelling nonsensical things
SKIN: No rash, warm, dry,
Lab Results
07/09/24 07:37
Troponin I 0.091 ng/ml H* 07/09/24 02:29
Jek-A-Vsdpnqukdlf Pept 8790 pg/ml 07/08/24 12:51
Impression / Plan
-
Family Physician: Nacho Hernandez
Chief Hospital Administrator: Initial consult Dr. Sal
Impression:
Presented 07/09/2024 with altered mental status/confusion
Hypoxemia
Acute heart failure, unknown ejection fraction, proBNP 8790
Hypernatremia
RICA
Peripheral Arterial Disease
s/p Right Carotid Stent
Diabetes Mellitus, Type II
Hyperlipidemia
Seizure Disorder on Lamitrigine, Davies
BPH
RBBB
Appendectomy
Right Carotid Artery Stent
Echo 07/09/2024: Ordered
Plan:
-Presented 07/09/2024 with altered mental status/confusion and hypoxia
-Ongoing altered mental status, confusion. Patient is combative on one-to-one and restraints and unable to provide history. Phone call placed to /left voice message. History is obtained by review of coordinating medical providers
-Acute heart failure, unknown ejection fraction, proBNP 8790 on admission. Chest x-ray concerning for increased interstitial markings versus atelectasis with small bilateral pleural effusions
-Patient was provided IV Lasix 40 mg x 1 in emergency department.
-Patient presented with creatinine 1.4 (Unclear baseline) and hypernatremia with sodium 148. Possible concern for dehydration. Would hold on giving additional diuretic. Patient started on D5W at 60 cc an hour after discussion with nephrology,
need to follow creatinine and electrolytes closely
-Check weight, monitor EVANGELINA's
-Abnormal troponin, initial 0.078-> 0.08-> 0.091. Has remained flat. Monitor and trend to peak
-EKG shows sinus tachycardia with right bundle branch block.
-Check echocardiogram
-Patient with history of seizure disorder. Lamictal level pending. If mental status does not improve may need to consider EEG to rule out atypical seizure presentation. Patient is followed by Dr. Davies as outpatient
HPI 07/09/2024:
Patient is an 84 y/o male past medical history of PAD, Diabetes Mellitus, Seizure Disorder, history of UTI and BPH who presented 07/08/2024 with altered mental status and confusion. Patient apparently suffered a fall 2 weeks ago and hit back of head
on floor and was evaluated at [facility]. 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 He
was found to be hypoxic with pulse ox of 86% on room air. Chest x-ray demonstrated small bilateral effusions with increased interstitial markings possibly atelectasis versus pulmonary edema. proBNP was found to be elevated at 8790 initial troponin
0.078. EKG showed sinus tachycardia with right bundle branch block. Pro-Loc was negative. UA did not suggest UTI. Head CT demonstrated moderate atrophy without acute abnormality. Patient was given 1 dose of IV Lasix 40 mg.
Cardiology being asked to see patient for concern for heart failure. At time of this evaluation patient is confused and unable to provide history. He is in restraints with one-to-one watch and attempts to hit and kick me while attempting to
examine him. Phone call placed to /left voice message. History is obtained by review of coordinating medical providers
Data Reviewed
-
EKG: Report Reviewed by me, Discussed with Physician and Discussed with Nurse
Radiology: Report Reviewed by me, Discussed with Physician and Discussed with Nurse
Labs: Labs Reviewed by me, Discussed with Physician and Discussed with Nurse
Old Records: Reviewed
[2024-07-09 08:40] LABS: Troponin I 0.116 ng/ml
--- NOTE | 2024-07-09 09:08 | CON.PUL ---
Consultation
Consultation Request
Date/Time Consultation Requested: 07/09/2024-9:30 AM
Date/Time Consultation Performed: 07/09/2024-9:30 AM
Requesting Provider: Hospitalist
Performing Provider: Dr. Velasquez
Reason for Consultation: Pleural effusions, hypoxemia
Medical History
-
Chief Complaint: Shortness of breath
History of Present Illness:
84-year-old agitated male with a history of seizure disorder, PAD, diabetes and BPH presented with confusion and disorientation and pulmonary consulted for shortness of breath and pleural effusion 07/09/2024. Patient remains agitated and review of
systems was unreliable, no respiratory distress, but answering questions.
Past Medical History
Past Medical History: None (PAD. Right carotid stent. Diabetes. Hyperlipidemia. BPH. Seizure disorder. Appendectomy. Former smoker quit 15 years ago.)
Social History
Tobacco: Former Smoker (? [id number] quit 15 years ago)
Alcohol: Occasional
Drug: None
Personal:
Living: With Family
Occupational Exposures: No known asbestos exposure
Environmental Exposures: No known tuberculosis exposure
Family History
Family History: Reviewed & Not Pertinent
Allergies / Home Medications
Allergies
Allergy/AdvReac Type Severity Reaction Status Date / Time
No Known Allergies Allergy Verified 07/08/24 12:42
Home Medications
�Medication �Instructions �Recorded �Confirmed �Last Taken �Type
simvastatin 20 mg tablet 20 mg PO QPM High cholesterol 08/10/15 07/08/24 07/07/24 History
clopidogrel 75 mg tablet 75 mg PO DAILY ##30 08/11/15 07/08/24 07/08/24 Rx
cyanocobalamin (vitamin B-12) 5,000 mcg PO DAILY Supplement 05/25/20 07/08/24 07/08/24 History
1,000 mcg tablet
propylene glycol 0.6 % eye drops 1 drp BOTH EYES PRN PRN dry eyes 05/25/20 07/08/24 06/09/20 04:15 History
(Systane Balance) ##0
tamsulosin 0.4 mg capsule 0.4 mg PO DAILY #30 caps 06/11/20 07/08/24 07/08/24 Rx
cholecalciferol (vitamin D3) 25 25 mcg PO DAILY 07/08/24 07/08/24 07/08/24 History
mcg (1,000 unit) tablet
dapagliflozin propanediol 5 mg 5 mg PO DAILY 07/08/24 07/08/24 07/08/24 History
tablet (Farxiga)
finasteride 5 mg tablet 5 mg PO DAILY 07/08/24 07/08/24 07/08/24 History
lamotrigine 200 mg tablet 200 mg PO BID 07/08/24 07/08/24 07/08/24 History
metformin 1,000 mg tablet 1,000 mg PO QPM 07/08/24 07/08/24 07/07/24 History
Review of Systems
-
Unable to Obtain full review of systems at this time due to: Other (Per HPI)
Vitals / Labs / Diagnostic Testing
Vital Signs
Temp Pulse Resp BP Pulse Ox
98.2 F 90 20 163/80 95
07/09/24 03:59 07/09/24 03:59 07/09/24 03:59 07/09/24 03:59 07/09/24 03:59
Lab Data
07/09/24 07:37
Laboratory Results
07/08/24
17:35
pH 7.47 H
pCO2 40
pO2 82 L
HCO3 29.1 H
O2 Delivery Level %oxygen/room air 2l
Diagnostic Testing:
Physical Exam
-
Exam:
Well-nourished and well-developed in no apparent distress
HEENT-atraumatic, normocephalic
Neck-supple, no JVD, no bruit
Heart-regular rate and rhythm-no murmurs, rubs or gallops
Chest with diminished breath sounds especially at the bases with rare crackles and no wheezes
Abdomen-soft, nontender, nondistended, no hepatosplenomegaly
Extremities-no cyanosis, clubbing, edema and good peripheral pulses
Integument-intact, no rashes, lesions or ecchymosis
Neurologically alert but not oriented, confused, moving extremities and nonfocal
Assessment
-
84-year-old agitated male with a history of seizure disorder, PAD, diabetes and BPH presented with confusion and disorientation and pulmonary consulted for shortness of breath and pleural effusion 07/09/2024.
Confusion/agitation/delirium/toxic metabolic encephalopathy
COPD suspected without acute exacerbation
Hypoxemia-2 L ABG 07/08/2024--40/82/7.47
Pleural effusions
Heart failure-unknown EF
Hypernatremia
RICA
Leukocytosis
Ybdycv-eoggxwduek-vaxylojcgf 11.1
Thrombocytosis
Hyperglycemia
Conditions present prior to admission:
PAD.
Right carotid stent.
Diabetes.
Hyperlipidemia.
BPH.
Seizure disorder-on Lamictal-followed by Dr. Davies
Right bundle branch block
Appendectomy.
Former smoker quit 15 years ago.
Plan
Respiratory decompensation likely due to CHF and less likely due to COPD exacerbation
Supplemental oxygen as needed
ABG reviewed and summarized above
Aspiration precautions
Nebulizers as needed-currently with minimal bronchospasm
Eventual PFTs and consideration towards inhalers
Mucolytic's as needed
Cardiology following-correspondence reviewed
Echocardiogram pending
Diuresis as tolerated
Monitor renal function, electrolytes, intake/output, lower extremity edema and weight
Replace electrolytes as needed
Monitor renal function
Nephrology consultation for acute kidney injury as well as severe hypernatremia
Monitor mental status
Correcting electrolyte abnormalities and hyperglycemia
Psychiatry evaluation pending
Check antiepileptic medication levels
Adjust antiepileptics as needed
Consider neurology evaluation
Currently 1:1
Restraints to prevent self-harm
Monitor hemoglobin
Check iron and B12
Monitor blood sugar
Insulin supplementation as needed
DVT prophylaxis-on subcu heparin
Nutrition with aspiration precautions
Early mobilization
Eventual outpatient pulmonary follow-up with PFTs
Diagnostic data:
Chest x-ray 05/27/2020-change of COPD, NAD
Chest x-ray 07/08/2024-CHF, small bilateral pleural effusions
CT chest 10/17/2015-no pulm embolism, mild emphysema, basilar atelectasis
CT head 07/08/2024-no acute intracranial abnormalities, moderate atrophy
Lower extremity ultrasound 07/08/2024-normal, no evidence for DVT
Data Reviewed
-
EKG: Report reviewed by me
Radiology: Image personally visualized and interpreted and Report reviewed by me
CT Scan: Report reviewed by me
Ultrasound: Report reviewed by me
Medical Tests (Nuc Med, Echo etc): Report reviewed by me
Labs: Labs reviewed by me
Old Records: Reviewed
Total Time Spent with Patient (in minutes): 65
[2024-07-09 09:25] LABS: Glycohemoglobin (HgbA1c) 8.4 % (4.0-5.6)
[2024-07-09 09:27] LABS: TSH Reflex To Free T4 2.99 uIU/ml (0.47-4.68)
[2024-07-09] MEDS: NOVOLOG FLEXPEN-LOW RESISTANCE 2 UNITS SC ×2 (09:34→17:35)
[2024-07-09] MEDS: THIAMINE INJECTION 200 MG IV (09:35)
[2024-07-09] MEDS: HEPARIN 5000 UNITS SC ×3 (09:36→23:40)
[2024-07-09 09:40] LABS: Blood Urea Nitrogen 31 mg/dl (9-20); Calcium 10.3 mg/dl (8.4-10.2); Carbon Dioxide 29 mmol/L (22-30); Chloride 105 mmol/L (98-107); Estimated Creatinine Clearance 33 ml/min; Glucose 229 mg/dl (70-99); HDL Cholesterol 72 mg/dl; LDL Cholesterol, Calculated 69 mg/dl; Magnesium 1.8 mg/dl (1.6-2.3); Phosphorus 4.3 mg/dl (2.5-4.5); Potassium 5.2 mmol/L (3.5-5.1); Sodium 153 mmol/L (135-145); Total Cholesterol 163 mg/dl (50-199); Triglyceride 112 mg/dl (10-149); Very Low Density Lipoprotein 22 mg/dl (0-30)
[2024-07-09] MEDS: FLOMAX PO (10:01)
[2024-07-09] MEDS: FARXIGA PO (10:01)
[2024-07-09] MEDS: PLAVIX PO (10:02)
[2024-07-09] MEDS: PROSCAR PO (10:02)
[2024-07-09 10:04] VITALS: BP 143/79
--- NOTE | 2024-07-09 10:44 | W.CON.NEPH ---
Consultation
-
Date/Time Consultation Requested: 07/08/24 194
Date/Time Consultation Performed: 07/09/24 1030
Requesting Provider: Samuel Borrego
Performing Provider: Nicolette Banuelos
Reason for Consultation: RICA
Medical History
-
Chief Complaint: Confusion
History of Present Illness:
84 y/o male past medical history of PAD on plavix, Diabetes Mellitus on metformin and Farxiga, Seizure Disorder on lamotrigine,HLD on statin and BPH on flomax and Finasteride who presents with confusion on 07/08. Pt is paranoid and can ont provide
detauils of history most of history through the records and at bedside. Patient awoke in the middle of the night, and was noted to be disoriented. He repeated asked about things from his childhood which is very unusual for the patient.
noted patient to be very weak too. Upon arrival to the emergency department patient was found to be hypoxic with pulse ox 86% on RA. he diagnosed with new CHF and received 1 dose of lasix last night. However his sodium was high at 148, cr
1.4(baseline 0.6 in 2019) nephrology consulted and started on D5W. Repeat labs this am cr up at 1.6, sodium up 153. He had carvajal catheter placed and non oliguric. No reported fever, cough or pain.
Past Medical History
Peripheral Arterial Disease s/p Right Carotid Stent
Diabetes Mellitus, Type II
Hyperlipidemia
Seizure Disorder
BPH
Past Surgical History: Other (Appendectomy Right Carotid Artery Stent)
Social History
Tobacco: Former Smoker (Quit about 10-15 years ago)
Alcohol: Occasional
Personal:
Living: With Family (At [facility])
Family History
unable to obtain, pt confused
Family History: Not Pertinent
Allergies / Home Medications
Allergy/AdvReac Type Severity Reaction Status Date / Time
No Known Allergies Allergy Verified 07/08/24 12:42
�Medication �Instructions �Recorded �Confirmed �Type
simvastatin 20 mg tablet 20 mg PO QPM High cholesterol 08/10/15 07/08/24 History
clopidogrel 75 mg tablet 75 mg PO DAILY ##30 08/11/15 07/08/24 Rx
cyanocobalamin (vitamin B-12) 5,000 mcg PO DAILY Supplement 05/25/20 07/08/24 History
1,000 mcg tablet
propylene glycol 0.6 % eye drops 1 drp BOTH EYES PRN PRN dry eyes 05/25/20 07/08/24 History
(Systane Balance) ##0
tamsulosin 0.4 mg capsule 0.4 mg PO DAILY #30 caps 06/11/20 07/08/24 Rx
cholecalciferol (vitamin D3) 25 25 mcg PO DAILY Supplement 07/08/24 07/08/24 History
mcg (1,000 unit) tablet
dapagliflozin propanediol 5 mg 5 mg PO DAILY Diabetes 07/08/24 07/08/24 History
tablet (Farxiga)
finasteride 5 mg tablet 5 mg PO DAILY Urinary Issue 07/08/24 07/08/24 History
lamotrigine 200 mg tablet 200 mg PO BID Mental Health/Anxiety 07/08/24 07/08/24 History
metformin 1,000 mg tablet 1,000 mg PO QPM Diabetes 07/08/24 07/08/24 History
Review of Systems
-
unable to obtain, pt confused
Physical Exam
Vital Signs
Vital Signs
Temp Pulse Resp BP Pulse Ox
97.9 F 103 22 143/79 97
07/09/24 10:04 07/09/24 10:04 07/09/24 10:04 07/09/24 10:04 07/09/24 10:04
Lab Results
WBC 11.0 10^3/uL (4.8-10.8) H 07/09/24 07:37
RBC 3.65 10^6/uL (4.70-6.10) L 07/09/24 07:37
Hgb 12.1 g/dL (13.0-18.0) L 07/09/24 07:37
Hct 36.9 % (39.0-52.0) L 07/09/24 07:37
Plt Count 532 10^3/uL (130-400) H 07/09/24 07:37
Sodium 153 mmol/L (135-145) H 07/09/24 07:37
Potassium 5.2 mmol/L (3.5-5.1) H D 07/09/24 07:37
Chloride 105 mmol/L (98-107) 07/09/24 07:37
Carbon Dioxide 29 mmol/L (22-30) 07/09/24 07:37
BUN 31 mg/dl (9-20) H 07/09/24 07:37
Creatinine 1.6 mg/dL (0.7-1.3) H 07/09/24 07:37
eGFR 41.70 07/09/24 07:37
Glucose 229 mg/dl (70-99) H 07/09/24 07:37
Calcium 10.3 mg/dl (8.4-10.2) H 07/09/24 07:37
Phosphorus 4.3 mg/dl (2.5-4.5) 07/09/24 07:37
Srs-H-Rxsfppzmcuj Pept 8790 pg/ml 07/08/24 12:51
Albumin 4.0 g/dl (3.5-5.0) 07/08/24 12:51
CXR:
FINDINGS: Cardiac silhouette size is slightly enlarged.
Pulmonary vascular flow is cephalized. There are increased interstitial markings and small bilateral pleural effusions. Findings are most suggestive of pulmonary edema pattern.
Patchy parenchymal opacity within both lower lungs, which may represent atelectasis, although the brain also be a component of patchy edema.
Calcification and tortuosity of the thoracic aorta with no radiographic evidence for thoracic aortic aneurysm.
IMPRESSION:
Radiographic findings highly suggestive of pulmonary edema pattern. Small bilateral pleural effusions.
Patchy parenchymal opacities within both lower lungs, main differential considerations of atelectasis and/or edema. Pneumonia could have a similar appearance, but felt to be less likely.
CT head:
IMPRESSION:
No acute intracranial abnormality noted.
Moderate atrophy. Progressed
Mild periventricular small vessel ischemic disease. Stable
Physical Exam
General: Awake, Alert, Oriented (to self), No Distress and Nontoxic
HEENT: EOMI, Anicteric, Conjunctivae Clear and Facial Symmetry
Respiratory: Clear, Normal Excursion and Nonlabored Respirations (anteriorly)
Cardiac: S1/S2 and Regular Rate/Rhythm
Breast: Deferred by me
Abdomen: Soft, Nontender and Nondistended
Musculoskeletal: No Cyanosis and No Edema
Skin: No Rash
Neuro: Other (restrained all limbs as he is combative, speech clear)
Psych: Other (paranoid)
Assessment/Plan
-
IMP:
Confusion/agitation/delirium/toxic metabolic encephalopathy
COPD suspected without acute exacerbation
Pleural effusions
New Heart failure-unknown EF
Hypernatremia
RICA
Leukocytosis
Ywqnxo-dxafpzlkha-kwlwfrdikn 11.1
Thrombocytosis
PAD.
Right carotid stent.
Diabetes.
Hyperlipidemia.
BPH.
Seizure disorder-on Lamictal-followed by Dr. Davies
Right bundle branch block
Appendectomy.
Former smoker quit 15 years ago.
Plan:
A/w confusion, paranoia
new CHF-diuresis per cards, i would be only diuresis slowly specially with worsening hypernatremia
Alkalemia from primary met alkalosis -seem to improve
echo pending
hypernatremia-cont hypotonic fluids, recheck labs
RICA-suspect cardiorenal, UA bland , check Fena
non oliguric with carvajal
follow k, expect to improve
Currently 1:1
BP stable
follow daily wts
d/w pt and
[2024-07-09 11:38] VITALS: BP 121/55
[2024-07-09 11:44] LABS: Glucose - Point of Care 189 mg/dl (70-99)
[2024-07-09] MEDS: NOVOLOG FLEXPEN-LOW RESISTANCE 1 UNITS SC (13:12)
[2024-07-09] MEDS: D5W 1000 IV (13:13)
--- NOTE | 2024-07-09 13:30 | CON.MD ---
Addendum entered and electronically signed by Radha Vicente MD 07/09/24 14:30:
check b12 and folate given macrocytic indices on cbc
Original Note:
Consultation - Medical
-
patient seen chart reviewed. discussed w nursingshelbie . present at bedside. the patient is 84 yrs old. he resides at [facility]. he was hosp at [facility] after a fall about two weeks ago. he was there for one week. he did hit his head at the
time. he went to snf after for about a week before returning to [facility] living at [facility]. reported weakness over the weekend. had trouble standing. he then became progressively confused and she brought him to . he was noted to be
hypoxic and in heart failure. there are other issues being addressed including hypernatremia, hyperkalemia, elevating creatinine and bhun. patient did note patient was not eating and drinking normally. see medical hx below. the patient was noted to
be increasingly agitated. he threw a bottle at cleaning staff this am. tells me he was very paranoid insisting someone wanted to kill him bc he was the president and she being vice pres was also in danger. he would not eat this am for this
reason. while i was there he suddenly began to talk and was making sense! nursing had come in to give him insulin and noted a great change in his demeanor from paranoid and hostile to very pleasant and no longer confused. he told me where he lives
and was oriented x3. he had just eaten his lunch and restraints were removed.
past psych hx none reports her h has no hx of dementia although sometimes it will take him 'a moment' to recall something specific 'just like me' said she
medical hx see above noted macrocytic indices on cbc hgb12.1 cr 1.6 bun 31 glu 229a1c 8.4 qtc 496 up from 472 patient w hx carotid stent on right bph sz d.o pad dm cxr pulmonary edema
cat brain atrophy no acute changes bp121/55 afebrile
fh non contributory
substance abuse denied
social resides at [facility] supportive
mse alert ox3 cooperative and pleasant. speech and thought process unremarkable. currently no obvious psychosis mood is euthymic affect ok no si aver intell insight not judgment ok at this moment
dx tme secondary to underlying medical illness which seems to be resolving
recommendations patient seems to be returning to his baseline. that may change as day turns to night which i explained to patient's . it is my impression that the patient's outbursts are secondary to tme . there are a number of medical issues
as described above that could be contributing. discussed w use of risperdal o.25 mg to start prn for agitation that risks harm to self or others. explained the black box warning to her. would leave one to one to make sure this improvement
continues as discussed w nursing will folllow
--- NOTE | 2024-07-09 14:28 | CM ---
Patient seen bedside with , on 1:1, restraints. Assessment completed by , Giuliana. Per , patient resides at [facility]. Patient typically oriented, uses walker/rollator for ambulation. reports patient recently was
at [facility] after a fall, discharged to [facility] then back home. Patient is not on home O2. confirms PCP Nacho Hernandez, pharmacy (for immediate needs) [facility], [facility] medications through [facility]. CM offered support to
, will continue to follow for all discharge planning needs.
Plan; hopefully return to [facility] [place] with , watch for eventual PT/OT evals.
[2024-07-09 14:53] LABS: Troponin I 0.131 ng/ml
[2024-07-09 15:00] VITALS: BP 121/64
[2024-07-09 16:52] LABS: Glucose - Point of Care 245 mg/dl (70-99)
[2024-07-09 17:26] LABS: Blood Urea Nitrogen 32 mg/dl (9-20); Calcium 9.4 mg/dl (8.4-10.2); Carbon Dioxide 29 mmol/L (22-30); Chloride 100 mmol/L (98-107); Estimated Creatinine Clearance 38 ml/min; Glucose 246 mg/dl (70-99); Potassium 3.7 mmol/L (3.5-5.1); Sodium 142 mmol/L (135-145); eGFR 48.95
[2024-07-09] MEDS: LIPITOR 10 MG PO (17:35)
--- NOTE | 2024-07-09 18:58 | W.PN.HOSP.TC ---
Today's Communication/Plan
-
Diuresis and beta rosie as per cardiology
Hypernatremia and agitation improved
PT/OT, placement
Assessment / Plan
Assessment / Plan
Physical Exam
General: Not in acute distress
HEENT: Normocephalic
Respiratory: Rales (Bilaterally) and Decreased Breath Sounds (Bilateral Bases)
Cardiac: S1/S2 and Regular Rhythm
GI: Soft, Non Tender and Other (Soft hernia)
Musculoskeletal: No Edema
Skin: Warm and Dry
Neuro: Awake, Alert and Nonfocal/grossly intact
Psych: Agitated
Assessment/Plan
84 y/o male with past medical history of PAD, Diabetes Mellitus, Seizure Disorder and BPH who presented with confusion. Patient awoke in the middle of the night, and was noted to be disoriented and repeatedly asked about things from his childhood
which was very unusual for the patient. noted patient to be very weak this morning. Upon arrival to the emergency department patient was found to be hypoxic with pulse ox 86% on RA. Patient was an unreliable historian at the present time but
denied cough, chest pain, palpitations or shortness of breath.
Acute Hypoxic Respiratory Insufficiency suspected secondary to CHF and Pleural Effusions
Concern for Atelectasis on Chest X-Ray
-Continue supplemental oxygen
Concern for Toxic Metabolic Encephalopathy
Intermittent Agitation
-1:1 Sitter and Fall Precautions (he was trying to get up out of bed)
-Treat electrolyte disturbances and causes of hypoxia
Acute Heart Failure, unknown type
Elevated proBNP
-Consult Cardiology, appreciate their evaluation and recommendations
-Check Echocardiogram
-Check Troponin and ECG
-Diuretics as per cardiology
-New medication carvedilol 3.125 mg p.o. twice daily as per cardiology
-Continue Plavix and atorvastatin.
-Continue to monitor on telemetry
Possible atrial arrhythmia
-Cardiology consulted, appreciate their evaluation and recommendations
Hypernatremia - RESOLVED
-Suspected dehydration
-Patient was previously started on D5W at 60 cc/hr in the setting of pulmonary edema and possible CHF
-IV thiamine given confusion and since was getting dextrose IV fluids
-Nephrology consulted, appreciate eval and recs
Macrocytic Anemia
-Check Iron and B12 and Folic Acid
Elevated Creatinine, suspect RICA, prerenal
-Family denies any known kidney disease
-Check bladder scan
-Recheck creatinine in AM
Peripheral Arterial Disease s/p Right Carotid Stent
-Continue Plavix
Diabetes Mellitus, Type II
-Check HgbA1c
-Hold metformin
-Continue Farxiga
-Monitor sugars and continue coverage insulin
Hyperlipidemia
-Continue simvastatin
Seizure Disorder
-Check Lamictal level due to confusion, though suspect confusion is related to hypoxia
-Follow-up on Lamictal level
-Continue Lamictal
-May need to consult neurology to see whether patient having any seizures if he doesn't improve
BPH
-Continue tamsulosin and finasteride
DVT proph: SC Heparin
Code Status: Full Code
Anticipated Discharge: 24 - 48 hours
Subjective/Interval History
-
Date of Service: July 09, 2024
Patient was seen and examined. He remained agitated overnight and this morning, later improved.
Objective Data
-
Labs:
Laboratory Results
07/09/24 07/09/24
07:37 16:30
WBC 11.0 H
Hgb 12.1 L
Hct 36.9 L
Plt Count 532 H
Sodium 153 H 142 D
Potassium 5.2 H D 3.7 D
Chloride 105 100
Carbon Dioxide 29 29
BUN 31 H 32 H
Creatinine 1.6 H 1.4 H
Glucose 229 H 246 H
Calcium 10.3 H 9.4
Vital Signs:
Vital Signs
Temp Pulse Resp BP Pulse Ox
97.6 F 76 18 121/64 95
07/09/24 15:00 07/09/24 15:00 07/09/24 15:00 07/09/24 15:00 07/09/24 15:00
I&O
07/08/24 07/09/24 07/10/24
06:59 06:59 06:59
Intake Total 950 / 950 1560 / 1560
Output Total 1175 / 1175 700 / 700
Balance -225 / -225 860 / 860
--- NOTE | 2024-07-09 19:15 | W.PN.UPDATE ---
Update Note
Progress Note Update
I spoke to nephrology who mentioned that if patient is eating, then can likely hold further intravenous fluids.
Lasix/diuresis cane be tried tomorrow.
[2024-07-09 19:48] VITALS: BP 144/71
--- NOTE | 2024-07-09 22:12 | W.PN.UPDATE ---
Update Note
Progress Note Update
Patient is agitated swinging at the staff, removing his O2 and de sat to 80s, biting at the o2 tubing. throwing and spitting it out, spitted Risperdal 0.5 mg that was ordered as well. One time order of 0.5 mg IV Haldol given and soft restraint was
placed
[2024-07-09] MEDS: HALDOL 0.5 MG IV (23:36)
[2024-07-10] VITALS (9 sets, daily range): BP systolic 90–174; BP diastolic 45–86; PULSE 95; O2SAT 96–97
[2024-07-10 01:50] LABS: Glucose - Point of Care 180 mg/dl (70-99)
--- NOTE | 2024-07-10 06:11 | PTCARENOTE ---
Beginning of shift pt calm with family at bedside. Repeated attempts administering PO medication, pt threw cups of water and spit out the medication with family at bedside assisting this RN in calming the pt and holding his hands. Notified MORGAN
Mikayla Alcazar. New orders placed. Pt spit out medication. Pt took O2 NL off. Family members assisted with this RN to place NL on pt and pt bite at the tubing. Notified MORGAN. New order placed. IV Haldol administered. Family members left for the
night with 1:1 in room with pt. Shortly after family left, 1:1 informed this RN pt is pulling on IV tubes, catheter tubing, clothes, and kicking off blankets. Calmly speaking with pt to not pull on IV tubes, catheter tubing, and clothes. Pt grabbed
and kicked at this RN. Calmly speaking to pt, pt continued to grab and kick at this RN. 1:1 called for additional nursing staff. Notified MORGAN Alcazar for renew restraint order. Restraints in place. Plan of care ongoing.
[2024-07-10 07:54] LABS: Glucose - Point of Care 180 mg/dl (70-99)
[2024-07-10] MEDS: FARXIGA PO ×2 (08:30→08:44)
[2024-07-10] MEDS: PROSCAR PO ×2 (08:30→08:44)
[2024-07-10] MEDS: FLOMAX PO ×2 (08:30→08:44)
[2024-07-10] MEDS: LAMICTAL PO ×2 (08:30→08:44)
[2024-07-10] MEDS: PLAVIX PO ×2 (08:30→08:44)
[2024-07-10] MEDS: HEPARIN 5000 UNITS SC ×2 (08:31→15:00)
[2024-07-10] MEDS: THIAMINE INJECTION 200 MG IV (08:31)
[2024-07-10] MEDS: NOVOLOG FLEXPEN-LOW RESISTANCE 1 UNITS SC ×2 (08:42→12:52)
--- NOTE | 2024-07-10 08:45 | PTCARENOTE ---
pt pulled out IV, threw cup across the room and spit AM medications out at nurse
[2024-07-10 09:04] LABS: Blood Urea Nitrogen 28 mg/dl (9-20); Calcium 9.4 mg/dl (8.4-10.2); Carbon Dioxide 27 mmol/L (22-30); Chloride 100 mmol/L (98-107); Estimated Creatinine Clearance 41 ml/min; Glucose 202 mg/dl (70-99); Iron 83 ug/dl (49-181); Phosphorus 3.5 mg/dl (2.5-4.5); Potassium 3.6 mmol/L (3.5-5.1); Sodium 140 mmol/L (135-145)
[2024-07-10 09:13] LABS: Percent Saturation 28 % (20-50); Total Iron Binding Capacity 288 ug/dl (261-462)
[2024-07-10] MEDS: FARXIGA 5 MG PO (11:08)
[2024-07-10] MEDS: FLOMAX 0.4 MG PO (11:09)
[2024-07-10] MEDS: PROSCAR 5 MG PO (11:09)
[2024-07-10] MEDS: LAMICTAL 200 MG PO ×2 (11:09→20:24)
[2024-07-10] MEDS: PLAVIX 75 MG PO (11:09)
--- NOTE | 2024-07-10 11:15 | PTCARENOTE ---
received pt combative and agitated, would not take medications, removed IV. Improvement noted with at bedside. pt now using medsitter as precaution in anticipation as possible changes in behaviors this afternoon. Pt did accept AM medications
with at bedside. attending updated. psychiatry at bedside
[2024-07-10 11:40] LABS: Folate 16.1 ng/ml (2.76-20); Vitamin B12 > 1000 pg/ml (239-931)
--- NOTE | 2024-07-10 11:41 | W.PN.UPDATE ---
Update Note
Progress Note Update
patient seen chart reviewed. discussed with nursing. at bedside. the patient had a difficult time last evening. he was agitated and combative. he refused po meds. he was given a prn of haldol iv and placed in restraints. he is much better
this am. he is very pleasant and cooperative. has agreed to sleep at this evening in the hope that will be able to stay calm. we discussed taking risperdal o.5 mg q 4 pm in the hopes of heading off ''. would be careful
with iv haldol given patient's qtc of 518. perhaps use ativan instead if parenteral medication is required.
--- NOTE | 2024-07-10 11:44 | PN.CDI ---
CDI
- -
CDI:
Physician Documentation Request
Admit Date: 07/08/24 20:01
Dear Doctor Azeem,
Please review the following and provide your response in the progress notes.
Clinical Indicators:
- 07/09 PN 'Acute Hypoxic Respiratory Insufficiency'
- 'Upon arrival to the emergency department patient was found to be hypoxic with pulse ox 86% on RA'
- Documented O2 4-5L, pulse ox >89%
- Patient admit with acute confusion
Clarify which of the following accurately represents the patient's respiratory status:
Acute hypoxic respiratory failure
Hypoxia
Other (please specify)
Additional information for Respiratory Failure:
Recognized criteria for Respiratory Failure (Source: [facility] Hospitalist Aug 2013)
ABGs: (1 or more) Symptoms Please indicate type if known
1. p)2 <60 or RA SPO2 <91% on RA 1. Tachypnea, SOB, dyspnea Hypoxic
2. pCO2 50 and pH <7.35 2. Use of accessory muscles Hypercapnic
3. pO2 decrease of pCO2 increase by 3. Pallor or cyanosis Hypoxic and Hypercapnic
10 mmHg from baseline if known 4. Anxiety or restlessness Unable to determine
5. Unable to speak in full sentences
Supplemental O2 of > 40% (5LPM) Intubation is not required
Use of terms such as suspected, likely, concern for, or probable (associated with a specific diagnosis that is being evaluated, monitored, or treated as if it exists) are acceptable and can be coded in the inpatient setting, when documented at the
time of discharge.
Thank you,
Marc Moreno RN
CDI Specialist
Please use your independent medical judgment in providing your response.
--- NOTE | 2024-07-10 12:31 | CM ---
Addendum entered by Agnieszka Carrasco 07/10/24 15:14:
Patient seen with family, off of restraints. CM discussed PT/OT recommendations of SNF, family requesting [facility] as patient and live at [facility]. CM will place referral in [facility].
Plan; SNF, hopefully [facility], when stable, patient off of restraints.
Original Note:
CM reviewed chart, discussed with Hospitalist and nursing. Patient on medsitter, 4 pt restraints. OT evaluation recommending SNF, will await PT recommendations and discuss SNF referrals with patient/. Patient will need to be off
medsitter/restraints for SNF placement. CM will continue to follow for all discharge planning needs.
Plan; SNF when stable, when off restraints.
[2024-07-10 12:52] LABS: Glucose - Point of Care 185 mg/dl (70-99)
--- NOTE | 2024-07-10 13:44 | W.PN.PUL.V3 ---
Today's Communication / Plan
-
.
Wean oxygen.
Diuresis as tolerated.
Nebulizers if needed.
Mental status improved-significant -Resperidone added at night
Assessment
-
84-year-old agitated male with a history of seizure disorder, PAD, diabetes and BPH presented with confusion and disorientation and pulmonary consulted for shortness of breath and pleural effusion 07/09/2024.
Confusion/agitation/delirium/toxic metabolic encephalopathy
COPD suspected without acute exacerbation
Hypoxemia-2 L ABG 07/08/2024--40/7.47
Pleural effusions
Heart failure-unknown EF
Hypernatremia
RICA
Leukocytosis
Vtwneu-jtwxlkmqtg-bwbgaclxhk 11.1
Thrombocytosis
Hyperglycemia
Conditions present prior to admission:
PAD.
Right carotid stent.
Diabetes.
Hyperlipidemia.
BPH.
Seizure disorder-on Lamictal-followed by Dr. Davies
Right bundle branch block
Appendectomy.
Former smoker quit 15 years ago.
Plan
Respiratory decompensation likely due to CHF and less likely due to COPD exacerbation
Supplemental oxygen as needed
ABG reviewed and summarized above
Aspiration precautions
Nebulizers as needed-currently with minimal bronchospasm
Eventual PFTs and consideration towards inhalers
Mucolytic's as needed
Cardiology following-correspondence reviewed
Echocardiogram pending
Diuresis as tolerated
Monitor renal function, electrolytes, intake/output, lower extremity edema and weight
Replace electrolytes as needed
Monitor renal function
Nephrology consultation for acute kidney injury as well as severe hypernatremia
Monitor mental status-Improved
Correcting electrolyte abnormalities and hyperglycemia
Psychiatry evaluation -correspondence reviewed, Haldol versus Respiridall versus Ativan as needed
Continue antiepileptics
Adjust antiepileptics as needed
Currently 1:1
Restraints to prevent self-harm
Monitor hemoglobin
Check iron and B12
Monitor blood sugar
Insulin supplementation as needed
DVT prophylaxis-on subcu heparin
Nutrition with aspiration precautions
Early mobilization
Reviewed with nursing as well as at the bedside
Eventual outpatient pulmonary follow-up with PFTs
Diagnostic data:
Chest x-ray 05/27/2020-change of COPD, NAD
Chest x-ray 07/08/2024-CHF, small bilateral pleural effusions
CT chest 10/17/2015-no pulm embolism, mild emphysema, basilar atelectasis
CT head 07/08/2024-no acute intracranial abnormalities, moderate atrophy
Lower extremity ultrasound 07/08/2024-normal, no evidence for DVT
Subjective Data
-
Date of Service:
Date of Service: July 10, 2024
Chief Complaint: Pulmonary Follow Up and Dyspnea Follow Up
Subjective:
Mental status is improved significantly, now alert and oriented, still reportedly agitated at times, episodes of combativeness last evening,no complaints of shortness of breath, chest pain or abdominal pain
Review of Systems
General: Other ( per HPI)
Objective Data
Data Reviewed
Vital Signs / I&O:
Vital Signs
Temp Pulse Resp BP Pulse Ox
97.8 F 86 18 124/69 95
07/10/24 11:04 07/10/24 11:04 07/10/24 11:04 07/10/24 11:04 07/10/24 11:04
Intake and Output
07/09/24 07/10/24 07/11/24
06:59 06:59 06:59
Intake Total 1430 / 1430 2280 / 2280
Output Total 1175 / 1175 1550 / 1550
Balance 255 / 255 730 / 730
SaO2: 95
Nasal Cannula flow liters per minute: 3
Physical Exam
General: Respiratory Distress (n) and Comfortable
HEENT: Normocephalic, Anicteric and Moist Mucous Membranes
Cardiovascular: Regular Rhythm
Respiratory: Wheeze (n), Crackles ( rare basilar), Rhonchi (n), Non-Labored Respirations, Accessory Resp Muscle Use (n) and Stridor (n)
GI: Soft, Non Distended and Non Tender
Neurology: Awake, Alert and No Motor Deficits
Skin: Warm, Good Color, Cyanosis (n), Jaundice (n) and Rash (n)
Labs/Micro/Reports
Lab Data
07/09/24 07:37
07/10/24 07:59
--- NOTE | 2024-07-10 14:31 | W.PN.NEPH.PH ---
Today's Communication / Plan
-
follow labs
lasix per cards
Assessment/Plan
-
IMP:
Confusion/agitation/delirium/toxic metabolic encephalopathy
COPD suspected without acute exacerbation
Pleural effusions
New Heart failure-unknown EF
Hypernatremia
RICA
Leukocytosis
Iozldl-lfxalfnwye-kjiubcmxeb 11.1
Thrombocytosis
PAD.
Right carotid stent.
Diabetes.
Hyperlipidemia.
BPH.
Seizure disorder-on Lamictal-followed by Dr. Davies
Right bundle branch block
Appendectomy.
Former smoker quit 15 years ago.
Plan:
A/w confusion, paranoia
new CHF-diuresis per cards, back on [facility]
echo pending today
hypernatremia-improed and off hypotonic fluids
RICA-suspect cardiorenal, UA bland
non oliguric with carvajal
BP stable
psych follows for AMS
follow daily wts
d/w pt and
-
-
Date of Service: July 10, 2024
CC / HPI / ROS
-
Chief Complaint:
RICA, hypernatremia
History of Present Illness:
cr better at 1.3, sodium normal
non oliguric with carvajal
no fever
Review of Systems:
no cp or sob
more cooperative today
Labs
-
Labs:
WBC 11.0 10^3/uL (4.8-10.8) H 07/09/24 07:37
RBC 3.65 10^6/uL (4.70-6.10) L 07/09/24 07:37
Hgb 12.1 g/dL (13.0-18.0) L 07/09/24 07:37
Hct 36.9 % (39.0-52.0) L 07/09/24 07:37
Plt Count 532 10^3/uL (130-400) H 07/09/24 07:37
Sodium 140 mmol/L (135-145) 07/10/24 07:59
Potassium 3.6 mmol/L (3.5-5.1) 07/10/24 07:59
Chloride 100 mmol/L (98-107) 07/10/24 07:59
Carbon Dioxide 27 mmol/L (22-30) 07/10/24 07:59
BUN 28 mg/dl (9-20) H 07/10/24 07:59
Creatinine 1.3 mg/dL (0.7-1.3) 07/10/24 07:59
eGFR 53.50 07/10/24 07:59
Glucose 202 mg/dl (70-99) H 07/10/24 07:59
Calcium 9.4 mg/dl (8.4-10.2) 07/10/24 07:59
Phosphorus 3.5 mg/dl (2.5-4.5) 07/10/24 07:59
Tro-I-Wxktqdavadr Pept 8790 pg/ml 07/08/24 12:51
Albumin 4.0 g/dl (3.5-5.0) 07/08/24 12:51
Physical Exam
-
Vital Signs:
Vital Signs
Temp Pulse Resp BP Pulse Ox
97.8 F 86 18 124/69 95
07/10/24 11:04 07/10/24 11:04 07/10/24 11:04 07/10/24 11:04 07/10/24 13:44
Cardiovascular:: Regular rate and rhythm
Respiratory:: Bilateral: Rales (bases)
Lung Excursion:: Normal
Abdomen:: Nontender and Soft
Extremity Edema:: None: Bilateral: (trace)
Carvajal Catheter: Yes
--- NOTE | 2024-07-10 14:43 | W.PN.CARDCBS ---
Today's Communication / Plan
-
Mental status much improved and now no longer delirious.
Check echocardiogram today.
Start Coreg 3.125 mg p.o. twice daily.
Continue Lasix 40 mg IV daily. Continue Farxiga. Creatinine stable at 1.3.
Impression / Plan
-
Family Physician: Nacho Hernandez
Studio Musician: Initial consult Dr. Sal
Impression:
Presented 07/09/2024 with altered mental status/confusion
Hypoxemia
Acute heart failure, unknown ejection fraction, proBNP 8790
Hypernatremia
RICA
Peripheral Arterial Disease
s/p Right Carotid Stent
Diabetes Mellitus, Type II
Hyperlipidemia
Seizure Disorder on Lamitrigine, Davies
BPH
RBBB
Appendectomy
Right Carotid Artery Stent
Echo 07/09/2024: Ordered
Plan:
-Mental status much improved today. Will start Lasix 40 mg IV daily. His breathing is improved. He is now able to get an echocardiogram and we will review today.
-Start Coreg 3.125 mg p.o. twice daily.
-Check weight, monitor EVANGELINA's
-Abnormal troponin, initial 0.078-> 0.08-> 0.091. Has remained flat. Monitor and trend to peak. I suspect this is a non-[place] troponin elevation.
-EKG shows sinus tachycardia with right bundle branch block.
-Check echocardiogram
-Patient with history of seizure disorder.
HPI 07/09/2024:
Patient is an 84 y/o male past medical history of PAD, Diabetes Mellitus, Seizure Disorder, history of UTI and BPH who presented 07/08/2024 with altered mental status and confusion. Patient apparently suffered a fall 2 weeks ago and hit back of head
on floor and was evaluated at [facility]. In the adapted physical education specialist of 07/08/2024 patient awoke disoriented which was different from baseline and when symptoms persisted into the morning associated with weakness patient was brought to emergency department. He
was found to be hypoxic with pulse ox of 86% on room air. Chest x-ray demonstrated small bilateral effusions with increased interstitial markings possibly atelectasis versus pulmonary edema. proBNP was found to be elevated at 8790 initial troponin
0.078. EKG showed sinus tachycardia with right bundle branch block. Pro-Loc was negative. UA did not suggest UTI. Head CT demonstrated moderate atrophy without acute abnormality. Patient was given 1 dose of IV Lasix 40 mg.
Cardiology being asked to see patient for concern for heart failure. At time of this evaluation patient is confused and unable to provide history. He is in restraints with one-to-one watch and attempts to hit and kick me while attempting to
examine him. Phone call placed to /left voice message. History is obtained by review of coordinating medical providers
Progress Note - Studio Musician
Subjective
Date of Service: July 10, 2024
Mental status is much improved. Still has some mild dyspnea. Denies chest pains.
Objective
Labs:
07/09/24 07:37
07/10/24 07:59
Labs
Hgb 12.1 g/dL (13.0-18.0) L 07/09/24 07:37
Hct 36.9 % (39.0-52.0) L 07/09/24 07:37
Plt Count 532 10^3/uL (130-400) H 07/09/24 07:37
Sodium 140 mmol/L (135-145) 07/10/24 07:59
Potassium 3.6 mmol/L (3.5-5.1) 07/10/24 07:59
BUN 28 mg/dl (9-20) H 07/10/24 07:59
Creatinine 1.3 mg/dL (0.7-1.3) 07/10/24 07:59
Glucose 202 mg/dl (70-99) H 07/10/24 07:59
Troponins
07/08/24 07/08/24 07/09/24
18:50 20:59 02:29
Troponin I 0.078 H* 0.080 H* 0.091 H*
07/09/24 07/09/24
07:37 14:13
Troponin I 0.116 H* D 0.131 H*
Vital Signs and I&O:
Vital Signs
Temp Pulse Resp BP Pulse Ox
97.8 F 86 18 124/69 95
07/10/24 11:04 07/10/24 11:04 07/10/24 11:04 07/10/24 11:04 07/10/24 13:44
Vital Signs
Temp Pulse Resp BP Pulse Ox
97.8 F 86 18 124/69 95
07/10/24 11:04 07/10/24 11:04 07/10/24 11:04 07/10/24 11:04 07/10/24 13:44
Intake & Output
07/08/24 07/09/24 07/10/24 07/11/24
06:59 06:59 06:59 06:59
Intake Total 1430 / 1430 2280 / 2280
Output Total 1175 / 1175 1550 / 1550
Balance 255 / 255 730 / 730
Physical Exam
Physical Exam
GEN: No distress, awake, alert
HEENT: supple, anicteric, mmm
LUNGS: CTA, no wheezes/rales
CV: Reg, S1/S2, 1/6 syst LSB, no murmur
ABD: soft, BS+, NT/ND
EXT: No edema
NEURO: Gross non-focal
SKIN: No rash
[2024-07-10] MEDS: RISPERDAL M-TAB (ORALLY DISINTEGRATING) 0.5 MG PO (14:59)
[2024-07-10] MEDS: LASIX 40 MG IV (15:00)
[2024-07-10 16:56] LABS: Glucose - Point of Care 320 mg/dl (70-99)
[2024-07-10] MEDS: LIPITOR 10 MG PO (17:20)
[2024-07-10] MEDS: NOVOLOG FLEXPEN-LOW RESISTANCE 4 UNITS SC (17:20)
--- NOTE | 2024-07-10 18:59 | W.PN.HOSP.TC ---
Today's Communication/Plan
-
Avoid Haldol or any other QTc-prolonging medications as patient's QTc is significantly prolonged. Consider Ativan if needed for agitation (see psychiatry note)
Continue IV Lasix
Patient's will stay overnight, hoping that his restraints can be removed and sitter can be discontinued soon
Assessment / Plan
Assessment / Plan
Physical Exam
General: Not in acute distress
HEENT: Normocephalic
Respiratory: Rales (Bilaterally) and Decreased Breath Sounds (Bilateral Bases)
Cardiac: S1/S2 and Regular Rhythm
GI: Soft, Non Tender and Other (Soft hernia)
Musculoskeletal: No Edema
Skin: Warm and Dry
Neuro: Awake, Alert and Nonfocal/grossly intact
Psych: Agitated
Assessment/Plan
84 y/o male with past medical history of PAD, Diabetes Mellitus, Seizure Disorder and BPH who presented with confusion. Patient awoke in the middle of the night, and was noted to be disoriented and repeatedly asked about things from his childhood
which was very unusual for the patient. noted patient to be very weak this morning. Upon arrival to the emergency department patient was found to be hypoxic with pulse ox 86% on RA. Patient was an unreliable historian at the present time but
denied cough, chest pain, palpitations or shortness of breath.
Acute Hypoxic Respiratory Failure suspected secondary to CHF and Pleural Effusions
Concern for Atelectasis on Chest X-Ray
-Continue supplemental oxygen
Concern for Toxic Metabolic Encephalopathy
Intermittent Agitation
-1:1 Sitter and Fall Precautions (he was trying to get up out of bed)
-Treat electrolyte disturbances and causes of hypoxia
Acute Heart Failure, unknown type
Elevated proBNP
-Consult Cardiology, appreciate their evaluation and recommendations
-Check Echocardiogram
-Check Troponin and ECG
-Diuretics as per cardiology
-New medication carvedilol 3.125 mg p.o. twice daily as per cardiology
-Continue Lasix 40 mg IV daily. Continue Farxiga.
-Continue Plavix and atorvastatin.
-Continue to monitor on telemetry
Prolonged QTc
-Avoid QTc-prolonging medications
Possible atrial arrhythmia
-Cardiology consulted, appreciate their evaluation and recommendations
Hypernatremia - RESOLVED
-Suspected dehydration
-Patient was previously started on D5W at 60 cc/hr in the setting of pulmonary edema and possible CHF
-IV thiamine given confusion and since was getting dextrose IV fluids
-Nephrology consulted, appreciate eval and recs
Macrocytic Anemia
-Check Iron (normal) and B12 (high) and Folic Acid (normal)
-Follow-up with hematology outpatient
Elevated Creatinine, suspect RICA, cardiorenal
-Family denies any known kidney disease
-Check bladder scan
-Recheck creatinine in AM
Peripheral Arterial Disease s/p Right Carotid Stent
-Continue Plavix
Diabetes Mellitus, Type II
-HgbA1c 8.4%
-Hold metformin
-Continue Farxiga
-Monitor sugars and continue coverage insulin
Hyperlipidemia
-Continue simvastatin
Seizure Disorder
-Check Lamictal level due to confusion, though suspect confusion is related to hypoxia
-Follow-up on Lamictal level
-Continue Lamictal
-May need to consult neurology to see whether patient having any seizures if he doesn't improve
BPH
-Continue tamsulosin and finasteride
DVT prophylaxis: SC Heparin
Code Status: Full Code
Anticipated Discharge: 24 - 48 hours
Subjective/Interval History
-
Date of Service: July 10, 2024
Patient was seen and examined. He was agitated overnight but was more calm after his came in.
Objective Data
-
Labs:
Laboratory Results
07/10/24
07:59
Sodium 140
Potassium 3.6
Chloride 100
Carbon Dioxide 27
BUN 28 H
Creatinine 1.3
Glucose 202 H
Calcium 9.4
Vital Signs:
Vital Signs
Temp Pulse Resp BP Pulse Ox
97.4 F 86 17 96/45 92
07/10/24 15:49 07/10/24 15:49 07/10/24 15:49 07/10/24 15:49 07/10/24 15:49
I&O
07/09/24 07/10/24 07/11/24
06:59 06:59 06:59
Intake Total 1430 / 1430 2280 / 2280
Output Total 1175 / 1175 1550 / 1550
Balance 255 / 255 730 / 730
[2024-07-10 20:57] LABS: Protein/creatinine Ratio 0.2; Urine Protein 15 mg/dl; Urine Sodium 38 mmol/L (30-90)
[2024-07-10 21:24] LABS: Glucose - Point of Care 175 mg/dl (70-99)
[2024-07-10] MEDS: HEPARIN SC (23:16)
[2024-07-10] MEDS: COREG PO (23:16)
[2024-07-11 00:59] LABS: Lamotrigine (Lamictal) 19.1 ug/mL (3.0-15.0)
--- NOTE | 2024-07-11 01:50 | PTCARENOTE ---
Pt cooperative at beginning of shift. later and became paranoid and restless. kept attempting to remove Carvajal, pulling at wires on wall. Removed carvajal. and placed wires (telephone, call luna, light string etc..) away from pt. pt settled
down. pt resting in bed w/ in cot and call luna in her reach.
Informed TAR MAN Mikayla Alcazar.
--- NOTE | 2024-07-11 06:39 | PTCARENOTE ---
pt took off tele and would not allow nursing to put it back on. pt refused 4am vital signs, daily weight, EKG. and bladder scan.
pt did use bathroom and had a large void.
Informed BUTTON TUFTING MACHINE OPERATOR Mikayla Alcazar.
--- NOTE | 2024-07-11 07:33 | PN.DE.MGMTRT ---
Insulin Management
- -
07/11/2024: Diabetes Management Consult
84 year old male admitted with Acute Hypoxic Respiratory Failure suspected secondary to CHF and Pleural Effusions
PMH: PAD, Seizure Disorder, BPH and T2DM. A1C 8.4% Cr 1.5--1.3, eGFR 53.50, was taking Farxiga 5mg daily and Metformin 1000mg BID.
Pt awake, alert, pleasantly confused but gets very agitated at the mention of blood sugar testing. - Giuliana at bedside, very emotional, states 'he has never been this'. Nurse reports pt is refusing all nursing care including accucheks.
Pt is eating all his meals with assistance from his .
07/10 fasting glucose was 202 (V), premeal range was 180 to 320, no fasting glucose this morning
Will increase Farxiga to 10mg daily and resume outpatient Metformin 1000 mg BID.
Change to 1800 roxanne. Discussed with nurse and pt's , okay if pt refuses accucheks, since there is low risk of hypoglycemia with either Farxiga or Metformin
Diabetes History
- -
Type of Diabetes: 2
Pre-Admission Diabetes Regimen
07/10/24
07:59
Creatinine 1.3
Lab Results
Hemoglobin A1c 8.4 % (4.0-5.6) H 07/09/24 07:37
Insulin Pump Settings
IP Diabetes Regimen
07/10/24 07/10/24 07/10/24
07:53 07:59 12:50
Glucose 202 H
POC Glucose 180 H 185 H
07/10/24 07/10/24
16:55 21:23
Glucose
POC Glucose 320 H 175 H
Meal type: Dinner
Meal type: Lunch
Amount consumed: 85%
Amount consumed: 100%
Patient Education
[2024-07-11] MEDS: NOVOLOG FLEXPEN-LOW RESISTANCE SC (09:00)
--- NOTE | 2024-07-11 10:25 | W.PN.PUL.V3 ---
Today's Communication / Plan
-
Wean oxygen.
Increase activity.
Diuresis per cardiology.
Psychiatry following intermittent psychoses.
Pulmonary will sign off -please call with questions
Assessment
-
84-year-old agitated male with a history of seizure disorder, PAD, diabetes and BPH presented with confusion and disorientation and pulmonary consulted for shortness of breath and pleural effusion 07/09/2024.
Confusion/agitation/delirium/toxic metabolic encephalopathy
COPD suspected without acute exacerbation
Hypoxemia-2 L ABG 07/08/2024--40/7.47
Pleural effusions
Heart failure-unknown EF
Hypernatremia
RICA
Leukocytosis
Wnmgnk-ilzxaoqott-gjuvtagcjv 11.1
Thrombocytosis
Hyperglycemia
Conditions present prior to admission:
PAD.
Right carotid stent.
Diabetes.
Hyperlipidemia.
BPH.
Seizure disorder-on Lamictal-followed by Dr. Davies
Right bundle branch block
Appendectomy.
Former smoker quit 15 years ago.
Plan
Respiratory decompensation likely due to CHF and less likely due to COPD exacerbation
Supplemental oxygen as needed-currently on room air
ABG reviewed and summarized above
Aspiration precautions
Nebulizers as needed-currently with minimal bronchospasm
Eventual PFTs and consideration towards inhalers
Mucolytic's as needed
Cardiology following-correspondence reviewed
Echocardiogram 07/10/24-EF 45-50%, mild mitral regurgitation, aortic sclerosis without stenosis, PA systolic estimated 25-30
Diuresis as tolerated
Monitor renal function, electrolytes, intake/output, lower extremity edema and weight
Replace electrolytes as needed
Monitor renal function
Nephrology consultation for acute kidney injury as well as severe hypernatremia-correspondence reviewed
Monitor mental status-Improved
Correcting electrolyte abnormalities and hyperglycemia
Psychiatry evaluation -correspondence reviewed, Haldol versus Respiridall versus Ativan as needed.-Reviewed with them personally
Continue antiepileptics
Adjust antiepileptics as needed
Currently 1:1
Restraints to prevent self-harm
Monitor hemoglobin
Check iron and B12
Monitor blood sugar
Insulin supplementation as needed
DVT prophylaxis-on subcu heparin
Nutrition with aspiration precautions
Early mobilization.
Patient's respiratory status is stabilized with diuresis, now on room air.-Pulmonary will sign off-. Please call with questions
Reviewed with nursing as well as at the bedside
Eventual outpatient pulmonary follow-up with PFTs
Diagnostic data:
Chest x-ray 05/27/2020-change of COPD, NAD
Chest x-ray 07/08/2024-CHF, small bilateral pleural effusions
CT chest 10/17/2015-no pulm embolism, mild emphysema, basilar atelectasis
CT head 07/08/2024-no acute intracranial abnormalities, moderate atrophy
Lower extremity ultrasound 07/08/2024-normal, no evidence for DVT
Subjective Data
-
Date of Service:
Date of Service: July 11, 2024
Chief Complaint: Pulmonary Follow Up and Dyspnea Follow Up
Subjective:
Extremely confused, paranoid, delusional, aggressive and agitated, at the bedside and in tears, no respiratory distress, on room air
Review of Systems
General: Other ( per HPI)
Objective Data
Data Reviewed
Vital Signs / I&O:
Vital Signs
Temp Pulse Resp BP Pulse Ox
97.5 F 101 22 90/57 93
07/10/24 19:24 07/10/24 23:17 07/10/24 23:17 07/10/24 23:17 07/11/24 01:38
Intake and Output
07/10/24 07/11/24 07/12/24
06:59 06:59 06:59
Intake Total 2280 / 2280 240 / 240
Output Total 1550 / 1550 950 / 950
Balance 730 / 730 -710 / -710
SaO2: 93
Nasal Cannula flow liters per minute: 2
Physical Exam
General: Respiratory Distress (n) and Comfortable
HEENT: Normocephalic, Anicteric and Moist Mucous Membranes
Cardiovascular: Regular Rhythm
Respiratory: Wheeze (n), Crackles ( rare basilar), Rhonchi (n), Non-Labored Respirations, Accessory Resp Muscle Use (n) and Stridor (n)
GI: Soft, Non Distended and Non Tender
Neurology: Awake, Alert and No Motor Deficits
Skin: Warm, Good Color, Cyanosis (n), Jaundice (n) and Rash (n)
Labs/Micro/Reports
Microbiology
07/09/24 16:42 Nose MRSA Screen - Final
No Methicillin Resistant Staphylococcus aureus isolated.
--- NOTE | 2024-07-11 10:26 | W.PN.CARDCBS ---
Addendum entered and electronically signed by Nacho Floyd MD 07/11/24 16:48:
stopped by to see Mr. Pitt and he was in the bathroom.
I introduced myself to his and two kids
His daughter told me that he was feeling better today
exam:
deferred and as per PA-C note
Impression:
Presented 07/09/2024 with altered mental status/confusion
Hypoxemia
Acute heart failure, unknown ejection fraction, proBNP 8790
Abnormal troponin
Hypernatremia
RICA
Peripheral Arterial Disease
s/p Right Carotid StentDiabetes Mellitus, Type II
Hyperlipidemia
Seizure Disorder on Lamitrigine, Davies
BPH
RBBB
Appendectomy
Right Carotid Artery Stent
Echo 07/09/2024: EF 45 to 50%. Stage I DD. Mild MR/TR, PAP 25 to 30 mmHg. New global hypokinesis
Plan:
-Mental status much improved but still not at baseline. Had bad night again with . Pulled out his IV and refused meds despite being present.
-Heart failure with mildly reduced ejection fraction
-Echo above reviewed with pt and family at bedside. EF now 45 to 50% with new global hypokinesis
-New to Coreg 3.125 mg twice a day (started 07/10/24 in pm). BP does not allow for up titration.
-Farxiga dose increased from 5 to 10 mg this admission both for HF and DM, HgA1c 8.4%
-Could consider low-dose CHERELLE/ARB/aldactone if blood pressure and renal function allows
-Does not appear to be acutely volume overloaded and refusing IV. Will transition to oral 40 mg daily. Was not on as outpt. His breathing has improved.
-BMP pending (pt refused to let them draw labs this am)
-Check weight, monitor I&O's
-Abnormal troponin, peaked 0.131. Suspect nonischemic myocardial injury secondary to acute heart failure exacerbation. Could consider outpt ischemic evaluation
-Appreciate input from psychiatry. Per recommendation avoid Haldol or other QTc prolonging agents. Utilize Ativan if needed for agitation
-Would check EKG, QTc 518 ms on EKG 07/10/2024
-EKG shows sinus tachycardia with right bundle branch block. Tele without arrhythmias
-Patient with history of seizure disorder. Given sundowning may benefit from neuro eval.
Original Note:
Today's Communication / Plan
-
Transition to oral Lasix
Check weight
Repeat EKG for QTc monitoring
Continue carvedilol and Farxiga
BMP pending
Impression / Plan
-
Family Physician: Nacho Hernandez
Measurement Analyst: Initial consult Dr. Sal
Impression:
Presented 07/09/2024 with altered mental status/confusion
Hypoxemia
Acute heart failure, unknown ejection fraction, proBNP 8790
Abnormal troponin
Hypernatremia
RICA
Peripheral Arterial Disease
s/p Right Carotid Stent
Diabetes Mellitus, Type II
Hyperlipidemia
Seizure Disorder on Lamitrigine, Davies
BPH
RBBB
Appendectomy
Right Carotid Artery Stent
Echo 07/09/2024: EF 45 to 50%. Stage I DD. Mild MR/TR, PAP 25 to 30 mmHg. New global hypokinesis
Plan:
-Mental status much improved but still not at baseline. Had bad night again with sundowning. Pulled out his IV and refused meds despite being present.
-Heart failure with mildly reduced ejection fraction
-Echo above reviewed with pt and family at bedside. EF now 45 to 50% with new global hypokinesis
-New to Coreg 3.125 mg twice a day (started 07/10/24 in pm). BP does not allow for up titration.
-Farxiga dose increased from 5 to 10 mg this admission both for HF and DM, HgA1c 8.4%
-Could consider low-dose CHERELLE/ARB/aldactone if blood pressure and renal function allows
-Does not appear to be acutely volume overloaded and refusing IV. Will transition to oral 40 mg daily. Was not on as outpt. His breathing has improved.
-BMP pending (pt refused to let them draw labs this am)
-Check weight, monitor I&O's
-Abnormal troponin, peaked 0.131. Suspect nonischemic myocardial injury secondary to acute heart failure exacerbation. Could consider outpt ischemic evaluation
-Appreciate input from psychiatry. Per recommendation avoid Haldol or other QTc prolonging agents. Utilize Ativan if needed for agitation
-Would check EKG, QTc 518 ms on EKG 07/10/2024
-EKG shows sinus tachycardia with right bundle branch block. Tele without arrhythmias
-Patient with history of seizure disorder. Given may benefit from neuro eval.
HPI 07/09/2024:
Patient is an 84 y/o male past medical history of PAD, Diabetes Mellitus, Seizure Disorder, history of UTI and BPH who presented 07/08/2024 with altered mental status and confusion. Patient apparently suffered a fall 2 weeks ago and hit back of head
on floor and was evaluated at [facility]. [place] 07/08/2024 patient awoke disoriented which was different from baseline and when symptoms persisted into the morning associated with weakness patient was brought to emergency department. He
was found to be hypoxic with pulse ox of 86% on room air. Chest x-ray demonstrated small bilateral effusions with increased interstitial markings possibly atelectasis versus pulmonary edema. proBNP was found to be elevated at 8790 initial troponin
0.078. EKG showed sinus tachycardia with right bundle branch block. Pro-Loc was negative. UA did not suggest UTI. Head CT demonstrated moderate atrophy without acute abnormality. Patient was given 1 dose of IV Lasix 40 mg.
Cardiology being asked to see patient for concern for heart failure. At time of this evaluation patient is confused and unable to provide history. He is in restraints with one-to-one watch and attempts to hit and kick me while attempting to
examine him. Phone call placed to /left voice message. History is obtained by review of coordinating medical providers
Progress Note - Measurement Analyst
Subjective
Date of Service: July 11, 2024
Pt seen and examined. Both and daughter at bedside. Currently calm but remains paranoid. Pulled IVs out last night and refused meds. No cardiac complaints offered today.
Objective
Labs:
Labs
Hgb 12.1 g/dL (13.0-18.0) L 07/09/24 07:37
Hct 36.9 % (39.0-52.0) L 07/09/24 07:37
Plt Count 532 10^3/uL (130-400) H 07/09/24 07:37
Sodium 140 mmol/L (135-145) 07/10/24 07:59
Potassium 3.6 mmol/L (3.5-5.1) 07/10/24 07:59
BUN 28 mg/dl (9-20) H 07/10/24 07:59
Creatinine 1.3 mg/dL (0.7-1.3) 07/10/24 07:59
Glucose 202 mg/dl (70-99) H 07/10/24 07:59
Troponins
07/08/24 07/08/24 07/09/24
18:50 20:59 02:29
Troponin I 0.078 H* 0.080 H* 0.091 H*
07/09/24 07/09/24
07:37 14:13
Troponin I 0.116 H* D 0.131 H*
Vital Signs and I&O:
Vital Signs
Temp Pulse Resp BP Pulse Ox
97.5 F 101 22 90/57 93
07/10/24 19:24 07/10/24 23:17 07/10/24 23:17 07/10/24 23:17 07/11/24 10:25
Vital Signs
Temp Pulse Resp BP Pulse Ox
97.5 F 101 22 90/57 93
07/10/24 19:24 07/10/24 23:17 07/10/24 23:17 07/10/24 23:17 07/11/24 10:25
Intake & Output
07/09/24 07/10/24 07/11/24 07/12/24
06:59 06:59 06:59 06:59
Intake Total 1430 / 1430 2280 / 2280 240 / 240
Output Total 1175 / 1175 1550 / 1550 950 / 950
Balance 255 / 255 730 / 730 -710 / -710
Physical Exam
Physical Exam
GEN: No distress, awake, alert
HEENT: supple, anicteric, mmm
LUNGS: CTA, no wheezes/rales
CV: Reg, S1/S2, no murmur, rub or gallop
ABD: soft, BS+, NT/ND
EXT: No edema, clubbing
NEURO: Gross non-focal
SKIN: No rash, warm, dry
[2024-07-11 11:00] VITALS: BP 113/49
[2024-07-11 11:12] LABS: Glucose - Point of Care 163 mg/dl (70-99)
[2024-07-11] MEDS: HEPARIN 5000 UNITS SC ×3 (11:27→22:40)
[2024-07-11] MEDS: LAMICTAL 200 MG PO ×2 (11:27→22:40)
[2024-07-11] MEDS: PLAVIX 75 MG PO (11:27)
[2024-07-11] MEDS: COREG 3.125 MG PO (11:27)
[2024-07-11] MEDS: FLOMAX 0.4 MG PO (11:27)
[2024-07-11] MEDS: GLUCOPHAGE 1000 MG PO ×2 (11:27→17:19)
[2024-07-11] MEDS: PROSCAR 5 MG PO (11:27)
[2024-07-11] MEDS: FARXIGA 10 MG PO (11:28)
--- NOTE | 2024-07-11 11:36 | CM ---
CM reviewed chart, met with patient and bedside. CM discussed referral made to [facility], awaiting acceptance/bed availability. CM reviewed with nursing, patient did experience behaviors overnight. CM will continue to follow for all discharge
planning needs.
Plan; awaiting bed availability at [facility].
[2024-07-11] MEDS: LASIX IV (11:41)
[2024-07-11] MEDS: NOVOLOG FLEXPEN-LOW RESISTANCE 1 UNITS SC ×2 (11:42→17:20)
[2024-07-11] MEDS: THIAMINE INJECTION 200 MG IV (11:43)
[2024-07-11] MEDS: LASIX 40 MG PO (11:47)
[2024-07-11 12:02] LABS: Hematocrit 38.9 % (39.0-52.0); Hemoglobin 13.1 g/dL (13.0-18.0); Mean Corp Hgb Conc. 33.7 g/dL (33.0-37.0); Mean Corpuscular Hgb 33.4 pg (27.0-31.0); Mean Corpuscular Volume 99.2 fL (80.0-94.0); Mean Platelet Volume 9.1 fL (7.4-10.4); Platelet Count 456 10^3/uL (130-400); Red Blood Cell Count 3.92 10^6/uL (4.70-6.10); Red Cell Dist. Width 12.7 % (11.5-14.5); White Blood Cell Count 8.9 10^3/uL (4.8-10.8)
--- NOTE | 2024-07-11 12:18 | W.PN.UPDATE ---
Update Note
Progress Note Update
patient seen chart reviewed. discussed with nursing. and d at bedside. the patient had a very difficult evening last night into this am. agitation began after six and continued intermittently w patient almost removing carvajal which in the end
nursing removed as it was to be removed this am in any case. he is doing very well at the present moment interacting appropriately w family. when introduced 'my daughter' he corrected her and said 'our daughter'. will increase risperdal at 6
pm to one mg and observe. have also added melatonin 3 mg to be given at 6 pm. he has been unwilling to take meds as the evening wears on in recent experience. psych will follow during the weekend.
--- NOTE | 2024-07-11 12:46 | W.PN.NEPH.PH ---
Today's Communication / Plan
-
follow BMP
Assessment/Plan
-
IMP:
Confusion/agitation/delirium/toxic metabolic encephalopathy
COPD suspected without acute exacerbation
Pleural effusions
New Heart failure-unknown EF
Hypernatremia
RICA
Leukocytosis
[id number] 11.1
Thrombocytosis
PAD.
Right carotid stent.
Diabetes.
Hyperlipidemia.
BPH.
Seizure disorder-on Lamictal-followed by Dr. Davies
Right bundle branch block
Appendectomy.
Former smoker quit 15 years ago.
Plan:
no IVF
follow BMP
eventual voiding trial
-
-
Date of Service: July 11, 2024
CC / HPI / ROS
-
Chief Complaint:
RICA, hypernatremia
History of Present Illness:
cr better at 1.3, sodium normal yesterday
no labs today
non oliguric with carvajal
no fever
Review of Systems:
no cp or sob
more cooperative today
Labs
-
Labs:
WBC 8.9 10^3/uL (4.8-10.8) 07/11/24 11:49
RBC 3.92 10^6/uL (4.70-6.10) L 07/11/24 11:49
Hgb 13.1 g/dL (13.0-18.0) 07/11/24 11:49
Hct 38.9 % (39.0-52.0) L 07/11/24 11:49
Plt Count 456 10^3/uL (130-400) H 07/11/24 11:49
eGFR 53.50 07/10/24 07:59
Phosphorus 3.5 mg/dl (2.5-4.5) 07/10/24 07:59
Kia-C-Lpowrotomml Pept 8790 pg/ml 07/08/24 12:51
Albumin 4.0 g/dl (3.5-5.0) 07/08/24 12:51
Physical Exam
-
Vital Signs:
Vital Signs
Temp Pulse Resp BP Pulse Ox
97.9 F 65 16 113/49 93
07/11/24 11:00 07/11/24 11:27 07/11/24 11:00 07/11/24 11:27 07/11/24 11:00
Cardiovascular:: Regular rate and rhythm
Respiratory:: Bilateral: CTA
Lung Excursion:: Normal
Abdomen:: Nontender and Soft
Bowel Sounds:: Normal
Extremity Edema:: None: Bilateral:
[2024-07-11 12:50] LABS: Blood Urea Nitrogen 39 mg/dl (9-20); Calcium 9.5 mg/dl (8.4-10.2); Carbon Dioxide 29 mmol/L (22-30); Chloride 97 mmol/L (98-107); Estimated Creatinine Clearance 35 ml/min; Glucose 221 mg/dl (70-99); Potassium 3.7 mmol/L (3.5-5.1); Sodium 140 mmol/L (135-145); eGFR 45.06
[2024-07-11 15:00] VITALS: BP 94/45
[2024-07-11 16:38] LABS: Glucose - Point of Care 198 mg/dl (70-99)
[2024-07-11] MEDS: LIPITOR 10 MG PO (17:19)
[2024-07-11] MEDS: RISPERDAL M-TAB (ORALLY DISINTEGRATING) 1 MG PO (17:19)
[2024-07-11] MEDS: MELATONIN 3 MG PO (17:23)
--- NOTE | 2024-07-11 18:18 | W.PN.HOSP.TC ---
Today's Communication/Plan
-
Now on room air
Agitation and recent mental status changes remains a significant issue -- with history of seizures, and as per cardiology will consult neurology
Assessment / Plan
Assessment / Plan
Physical Exam
General: Not in acute distress
HEENT: Normocephalic
Respiratory: Rales (Bilaterally) and Decreased Breath Sounds (Bilateral Bases)
Cardiac: S1/S2 and Regular Rhythm
GI: Soft, Non Tender and Other (Soft hernia)
Musculoskeletal: No Edema
Skin: Warm and Dry
Neuro: Awake, Alert and Nonfocal/grossly intact
Psych: Agitated
Assessment/Plan
84 y/o male with past medical history of PAD, Diabetes Mellitus, Seizure Disorder and BPH who presented with confusion. Patient awoke in the middle of the night, and was noted to be disoriented and repeatedly asked about things from his childhood
which was very unusual for the patient. noted patient to be very weak this morning. Upon arrival to the emergency department patient was found to be hypoxic with pulse ox 86% on RA. Patient was an unreliable historian at the present time but
denied cough, chest pain, palpitations or shortness of breath.
Acute Hypoxic Respiratory Failure - RESOLVED - suspected secondary to CHF and Pleural Effusions
Concern for Atelectasis on Chest X-Ray
-NOW ON ROOM AIR
Concern for Toxic Metabolic Encephalopathy
Intermittent Agitation
-1:1 Sitter and Fall Precautions (he was trying to get up out of bed)
-Treat electrolyte disturbances and causes of hypoxia
Acute Heart Failure, unknown type
Elevated proBNP
-Consult Cardiology, appreciate their evaluation and recommendations
-Check Echocardiogram
-Check Troponin and ECG
-Diuretics as per cardiology -- transitioned to PO today
-New medication carvedilol 3.125 mg p.o. twice daily as per cardiology
-Continue Farxiga at increased dosage.
-Continue Plavix and atorvastatin.
-Continue to monitor on telemetry
Prolonged QTc
-Avoid QTc-prolonging medications
Possible atrial arrhythmia
-Cardiology consulted, appreciate their evaluation and recommendations
Hypernatremia - RESOLVED
-Suspected dehydration
-Patient was previously started on D5W at 60 cc/hr in the setting of pulmonary edema and possible CHF
-IV thiamine given confusion and since was getting dextrose IV fluids
-Nephrology consulted, appreciate eval and recs
Macrocytic Anemia
-Check Iron (normal) and B12 (high) and Folic Acid (normal)
-Follow-up with hematology outpatient
Elevated Creatinine, suspect RICA, cardiorenal
-Family denies any known kidney disease
-Check bladder scan
-Recheck creatinine in AM
Peripheral Arterial Disease s/p Right Carotid Stent
-Continue Plavix
Diabetes Mellitus, Type II
-HgbA1c 8.4%
-Continue to hold metformin
-Continue Farxiga -- but at an increased dosage
-Monitor sugars and continue coverage insulin
Hyperlipidemia
-Continue simvastatin
Seizure Disorder
-Check Lamictal level due to confusion, though suspect confusion is related to hypoxia
-Follow-up on Lamictal level
-Continue Lamictal
-Consult neurology as mental status not improving significantly, and as per per family request, patient sees Dr. Davies outpatient
BPH
-Continue tamsulosin and finasteride
DVT prophylaxis: SC Heparin
Code Status: Full Code
Anticipated Discharge: > 48 hours
Subjective/Interval History
-
Date of Service: July 11, 2024
Patient was seen and examined. He was agitated earlier in the morning, but later on was doing better.
Objective Data
-
Labs:
Laboratory Results
07/11/24
11:49
WBC 8.9
Hgb 13.1
Hct 38.9 L
Plt Count 456 H
Sodium 140
Potassium 3.7
Chloride 97 L
Carbon Dioxide 29
BUN 39 H
Creatinine 1.5 H
Glucose 221 H
Calcium 9.5
Vital Signs:
Vital Signs
Temp Pulse Resp BP Pulse Ox
97.4 F 73 16 94/45 93
07/11/24 15:00 07/11/24 15:00 07/11/24 15:00 07/11/24 15:00 07/11/24 15:00
I&O
07/10/24 07/11/24 07/12/24
06:59 06:59 06:59
Intake Total 2280 / 2280 240 / 240
Output Total 1550 / 1550 950 / 950
Balance 730 / 730 -710 / -710
[2024-07-11 19:32] VITALS: BP 93/43
[2024-07-11] MEDS: COREG PO (20:30)
[2024-07-11 23:04] LABS: Glucose - Point of Care 172 mg/dl (70-99)
[2024-07-11 23:11] VITALS: BP 120/55
[2024-07-12 08:54] LABS: Glucose - Point of Care 170 mg/dl (70-99)
[2024-07-12 09:00] VITALS: BP 120/47
[2024-07-12] MEDS: LAMICTAL 200 MG PO ×2 (09:07→21:27)
[2024-07-12] MEDS: COREG 3.125 MG PO ×2 (09:07→21:40)
[2024-07-12] MEDS: NOVOLOG FLEXPEN-LOW RESISTANCE 1 UNITS SC (09:07)
[2024-07-12] MEDS: PLAVIX 75 MG PO (09:07)
[2024-07-12] MEDS: FLOMAX 0.4 MG PO (09:07)
[2024-07-12] MEDS: LASIX 40 MG PO (09:07)
[2024-07-12] MEDS: FARXIGA 10 MG PO (09:07)
[2024-07-12] MEDS: HEPARIN 5000 UNITS SC ×3 (09:08→21:27)
[2024-07-12] MEDS: PROSCAR 5 MG PO (09:08)
[2024-07-12] MEDS: THIAMINE INJECTION 200 MG IV (09:08)
[2024-07-12] MEDS: FLUSH (NSS) 1 FLUSH IV (09:09)
--- NOTE | 2024-07-12 09:18 | W.PN.CARDCBS ---
Today's Communication / Plan
-
Oral Lasix
Following mental status
Awaiting today's renal function
Impression / Plan
-
Family Physician: Nacho Hernandez
Taxi Truck Driver: Initial consult Dr. Sal
Impression:
Presented 07/09/2024 with altered mental status/confusion
Hypoxemia
Acute heart failure, unknown ejection fraction, proBNP 8790
Abnormal troponin
Hypernatremia
RICA
Peripheral Arterial Disease
s/p Right Carotid Stent
Diabetes Mellitus, Type II
Hyperlipidemia
Seizure Disorder on Lamitrigine, Davies
BPH
RBBB
Appendectomy
Right Carotid Artery Stent
Echo 07/09/2024: EF 45 to 50%. Stage I DD. Mild MR/TR, PAP 25 to 30 mmHg. New global hypokinesis
Plan:
-Heart failure with mildly reduced ejection fraction
-Echo above reviewed with pt and family at bedside. EF now 45 to 50% with new global hypokinesis
-New to Coreg 3.125 mg twice a day (started 07/10/24 in pm). BP does not allow for up titration.
-Farxiga dose increased from 5 to 10 mg this admission both for HF and DM, HgA1c 8.4%
-Could consider low-dose CHERELLE/ARB/aldactone if blood pressure and renal function allows
-Does not appear to be acutely volume overloaded and refusing IV. Will transition to oral 40 mg daily. Was not on as outpt. His breathing has improved.
-BMP pending
-Check weight, monitor I&O's
-Abnormal troponin, peaked 0.131. Suspect nonischemic myocardial injury secondary to acute heart failure exacerbation. Could consider outpt ischemic evaluation
-Appreciate input from psychiatry. Per recommendation avoid Haldol or other QTc prolonging agents. Utilize Ativan if needed for agitation
-EKG shows sinus tachycardia with right bundle branch block. Tele without arrhythmias
-Patient with history of seizure disorder. Given may benefit from neuro eval.
HPI 07/09/2024:
Patient is an 84 y/o male past medical history of PAD, Diabetes Mellitus, Seizure Disorder, history of UTI and BPH who presented 07/08/2024 with altered mental status and confusion. Patient apparently suffered a fall 2 weeks ago and hit back of head
on floor and was evaluated at [facility]. In the event host of 07/08/2024 patient awoke disoriented which was different from baseline and when symptoms persisted into the morning associated with weakness patient was brought to emergency department. He
was found to be hypoxic with pulse ox of 86% on room air. Chest x-ray demonstrated small bilateral effusions with increased interstitial markings possibly atelectasis versus pulmonary edema. proBNP was found to be elevated at 8790 initial troponin
0.078. EKG showed sinus tachycardia with right bundle branch block. Pro-Loc was negative. UA did not suggest UTI. Head CT demonstrated moderate atrophy without acute abnormality. Patient was given 1 dose of IV Lasix 40 mg.
Cardiology being asked to see patient for concern for heart failure. At time of this evaluation patient is confused and unable to provide history. He is in restraints with one-to-one watch and attempts to hit and kick me while attempting to
examine him. Phone call placed to /left voice message. History is obtained by review of coordinating medical providers
Progress Note - Taxi Truck Driver
Subjective
Date of Service: July 12, 2024
Feels well
Objective
Labs:
Labs
Hgb 13.1 g/dL (13.0-18.0) 07/11/24 11:49
Hct 38.9 % (39.0-52.0) L 07/11/24 11:49
Plt Count 456 10^3/uL (130-400) H 07/11/24 11:49
Sodium 140 mmol/L (135-145) 07/11/24 11:49
Potassium 3.7 mmol/L (3.5-5.1) 07/11/24 11:49
BUN 39 mg/dl (9-20) H 07/11/24 11:49
Creatinine 1.5 mg/dL (0.7-1.3) H 07/11/24 11:49
Glucose 221 mg/dl (70-99) H 07/11/24 11:49
Troponins
07/09/24
14:13
Troponin I 0.131 H*
Vital Signs and I&O:
Vital Signs
Temp Pulse Resp BP Pulse Ox
97.9 F 93 18 120/47 92
07/12/24 09:00 07/12/24 09:07 07/12/24 09:00 07/12/24 09:07 07/12/24 09:00
Vital Signs
Temp Pulse Resp BP Pulse Ox
97.9 F 93 18 120/47 92
07/12/24 09:00 07/12/24 09:07 07/12/24 09:00 07/12/24 09:07 07/12/24 09:00
Intake & Output
07/10/24 07/11/24 07/12/24 07/13/24
06:59 06:59 06:59 06:59
Intake Total 2280 / 2280 240 / 240 960 / 960
Output Total 1550 / 1550 950 / 950
Balance 730 / 730 -710 / -710 960 / 960
Physical Exam
Physical Exam
�
����Physical Exam
�
���������������������General:��no apparent distress, not acutely ill
�
���������������������������Neck:��supple. no meningeal signs. normal psoterior pharynx
������������������������
���������������������������Heart:��s1/s2 regular rate and rhythm, no murmur. equal radial pulses.
�
��������������������������Lungs: ��no acute respiratory distress. clear bilaterally
�
����������������������Abdomen:�normal bowel sounds. not tender. no CVAT
�
��������������������������Neuro:��alert and oriented. no focal neurological deficits
�
������������������������������Skin: ��no rash
�
�����������������������Psychiatric:�well kept. interactive and cooperative
�
�����������������������Extremities:��no edema. no calf tenderness. negative homans. good distal pulses
�
�
�
��
�
[2024-07-12 10:04] LABS: Hematocrit 33.4 % (39.0-52.0); Hemoglobin 11.4 g/dL (13.0-18.0); Mean Corp Hgb Conc. 34.1 g/dL (33.0-37.0); Mean Corpuscular Hgb 33.5 pg (27.0-31.0); Mean Corpuscular Volume 98.2 fL (80.0-94.0); Mean Platelet Volume 9.2 fL (7.4-10.4); Platelet Count 399 10^3/uL (130-400); Red Cell Dist. Width 12.5 % (11.5-14.5); White Blood Cell Count 7.8 10^3/uL (4.8-10.8)
--- NOTE | 2024-07-12 10:27 | CON.NEURO ---
Consultation
Order
Date of Consultation: 07/12/24
Requesting Provider: Samuel Gann MD
Reason for Consult: elevated Lamictal, encephalopathy
CC: none
HPI: This is an 84-year-old man who presented to [facility] on July 08, 2024 with encephalopathy.
He was felt to be more confused as well.
According to patient's spouse Mr. Glover sustained a fall with resultant head trauma transient headache nausea and emesis in June 2024 and was hospitalized to [facility]. He returned from rehab and was noted to be confused and
increasingly weak prompting him to seek medical attention.
His reports that he has been experiencing difficulties with medication management for a couple of months, prompting her to assist with medication setup. He has also been using a walker for a couple of months and has had progressive difficulties
expressing thoughts.
His has taken over family finances within the past year due to his inability to reconcile bank accounts. He has been experiencing forgetfulness and confusion, which has worsened since his fall in June. He denies any current headache,
sensation of spinning, tinnitus.
ER VS: 210/99, 116, afebrile, according to the patient's spouse Mr. Corral's care was unable to get up on the day of presentation.
EKG: NSR, QTc Int : 487 ms
PDMP: no recently prescribed meds
Labs: gluc 221, cr 1.4, normal WBC, MCV 99.2, normal Na, TSH, supratherapeutic vit b12, ua, Lamotrigine 19.1(3-15).
MAR: Haloperidol, Risperidone
cEEG(10/18/2015) 2.5 second burst of left predominant rhythmic, left temporal sharp waves
PMH: PAD, HTN, DLP, DM, CKD,
PSH: R ICA stent, Appendectomy,
SH:; lives at [place] with , ambulates with a rollating walker; retired tool programmer
FH:father in his 90s;
All:NKDA
ROS: Constitutional: Negative. Negative for chills, fever and unexpected weight change.
HENT: Negative for ear pain, hearing loss, tinnitus and trouble swallowing.
Eyes: Negative. Negative for photophobia, pain and visual disturbance.
Respiratory: Negative for cough, choking and shortness of breath.
Cardiovascular: Negative for chest pain, palpitations and leg swelling.
Gastrointestinal:positive for sialorrhea
Endocrine: Negative. Negative for cold intolerance.
Genitourinary: Negative for dysuria, flank pain and urgency.
Musculoskeletal: Negative for back pain, gait problem, neck pain and neck stiffness.
Skin: Negative for rash.
Allergic/Immunologic: Negative. Negative for immunocompromised state.
Neurological: positive for imbalance
Psychiatric/Behavioral: positive for progressive confusion
General: Well developed. In no acute distress.
Cardio: Regular rate and rhythm without murmur. Extremities are without cyanosis or edema.
Neuro:
Mental Status: Alert, oriented to person, place, month. Expressive>receptive aphasia. Nonfluent. Follows simple requests.
Cranial Nerves: . Pupils are equally round and reactive to light. EOMs full. Visual abbott full to confrontation. No ptosis. No nystagmus. V1-V3 intact to light touch and pinprick bilaterally, symmetric. Face symmetric. Normal hearing AU.
The palate elevated well. SCMs and traps 5/5. Tongue midline. No dysarthria.
Motor: Normal bulk and tone. No pronator or arm drift. All limbs are antigravity
Reflexes: BL grasp
Sensory: limited exam due to poor attention
Coordination: No dysmetria or tremor.
Gait: deferred
Assessment and Plan:
I. Multifactorial encephalopathy (vascular(hypertensive), metabolic(uremia), neurodegenerative(dementia), toxic(elevated Lamictal level)).
II. Ambulatory dysfunction
III. PAD, s/p R ICA stent
IV. Focal epilepsy
-fall precautions.
-Medication administration supervision
-Brain MRI wo kali if no clinical improvement
-Olanzapine 2.5-5 mg QHS PRN
-Continue Lamictal 200 mg BID
-DVT prophylaxis.
-OP neurology follow up in 1-2 weeks
I personally reviewed all radiology and labs along with past medical records pertinent to current medical problems. Total time spent in patient care is 60 minutes.
Thank you for allowing us to participate in the care of this patient. We will continue to follow. Please do not hesitate to contact us with any questions or concerns.
Subjective/Objective
Subjective Data
Date of Service: July 12, 2024
Objective Data
Vital Signs
Temp Pulse Resp BP Pulse Ox
36.6 C 93 18 120/47 92
07/12/24 09:00 07/12/24 09:07 07/12/24 09:00 07/12/24 09:07 07/12/24 09:00
Lab Results
07/12/24 09:23
Sodium 140 mmol/L (135-145) 07/11/24 11:49
Potassium 3.7 mmol/L (3.5-5.1) 07/11/24 11:49
BUN 39 mg/dl (9-20) H 07/11/24 11:49
Glucose 221 mg/dl (70-99) H 07/11/24 11:49
Calcium 9.5 mg/dl (8.4-10.2) 07/11/24 11:49
Phosphorus 3.5 mg/dl (2.5-4.5) 07/10/24 07:59
Dbd-C-Elwcysyigth Pept 8790 pg/ml 07/08/24 12:51
LDL Cholesterol, Calc 69 mg/dl 07/09/24 07:37
Vitamin B12 > 1000 pg/ml (239-931) H 07/10/24 07:59
Patient Allergies
No Known Allergies Allergy (Verified 07/08/24 12:42)
Medications
-
Active Medications
Generic Name Dose Route Start Last Admin
Trade Name Freq PRN Reason Stop Dose Admin
Albuterol/Ipratropium 3 ml 07/09/24 10:16
Ipratropium 0.5/Albuterol 3 Mg (3 Ml Ampul) INH
R Q4HPRN PRN
Wheeze
Protocol
Atorvastatin Calcium 10 mg 07/09/24 18:00 07/11/24 17:19
Atorvastatin (Lipitor) 10 Mg Tablet PO 08/06/24 17:59 10 mg
QPM JJ Administration
Carvedilol 3.125 mg 07/10/24 20:00 07/12/24 09:07
Carvedilol 3.125 Mg Tablet PO 08/07/24 19:59 3.125 mg
BID JJ Administration
Clopidogrel Bisulfate 75 mg 07/09/24 08:00 07/12/24 09:07
Clopidogrel 75 Mg Tablet PO 08/06/24 07:59 75 mg
DAILY JJ Administration
Dapagliflozin 10 mg 07/11/24 08:00 07/12/24 09:07
Dapagliflozin (Farxiga) 10 Mg Tablet PO 08/08/24 07:59 10 mg
DAILY JJ Administration
Dextrose 12.5 grams 07/08/24 22:43
Dextrose 50% (0.5 Grams/Ml) 50 Ml Syringe IV 08/05/24 22:42
[id number] PRN
hypoglycemia
Protocol
Finasteride 5 mg 07/09/24 08:00 07/12/24 09:08
Finasteride 5 Mg Tablet PO 08/06/24 07:59 5 mg
DAILY JJ Administration
Furosemide 40 mg 07/11/24 12:00 07/12/24 09:07
Furosemide 40 Mg Tablet PO 08/08/24 11:59 40 mg
DAILY JJ Administration
Glucagon 1 mg 07/08/24 22:43
Glucagon 1 Mg Vial IM 08/05/24 22:42
PRN PRN
hypoglycemia
Protocol
Heparin Sodium 5,000 units 07/09/24 00:00 07/12/24 09:08
Heparin 5,000 Units/Ml 1 Ml Vial SC 08/06/24 00:00 5,000 units
Q8 JJ Administration
Insulin Aspart 0 units 07/09/24 07:30 07/12/24 09:07
Insulin Aspart Low Resistance 300 Units/3 Ml Pen.Injctr SC 08/06/24 07:29 1 units
AC JJ Administration
Protocol
Lamotrigine 200 mg 07/08/24 23:00 07/12/24 09:07
Lamotrigine 100 Mg Tablet PO 08/05/24 22:59 200 mg
BID JJ Administration
Melatonin 3 mg 07/11/24 18:00 07/11/24 17:23
Melatonin 3 Mg Tablet PO 08/08/24 17:59 3 mg
1800 JJ Administration
Metformin HCl 1,000 mg 07/11/24 08:00 07/11/24 17:19
Metformin 1000 Mg Regular Release Tablet PO 08/08/24 07:59 1,000 mg
BID@0800,1700 JJ Administration
Risperidone 1 mg 07/11/24 18:00 07/11/24 17:19
Risperidone 0.5 Mg Orally Disintegrating Tablet PO 08/08/24 17:59 1 mg
1800 JJ Administration
Sodium Chloride 0 flush 07/08/24 21:00 07/12/24 09:09
Sodium Chloride 0.9% (Flush) Syringe IV 08/05/24 20:59 1 flush
PER PROTOCOL JJ Administration
Tamsulosin HCl 0.4 mg 07/09/24 08:00 07/12/24 09:07
Tamsulosin 0.4 Mg Capsule PO 08/06/24 07:59 0.4 mg
DAILY JJ Administration
Thiamine HCl 200 mg 07/08/24 20:00 07/12/24 09:08
Thiamine (100 Mg/Ml) 2 Ml Vial IV 08/05/24 19:59 200 mg
DAILY JJ Administration
Home Medications
�Medication �Instructions �Recorded
simvastatin 20 mg tablet 20 mg PO QPM High cholesterol 08/10/15
clopidogrel 75 mg tablet 75 mg PO DAILY ##30 08/11/15
cyanocobalamin (vitamin B-12) 5,000 mcg PO DAILY Supplement 05/25/20
1,000 mcg tablet
propylene glycol 0.6 % eye drops 1 drp BOTH EYES PRN PRN dry eyes 05/25/20
(Systane Balance) ##0
tamsulosin 0.4 mg capsule 0.4 mg PO DAILY #30 caps 06/11/20
cholecalciferol (vitamin D3) 25 25 mcg PO DAILY Supplement 07/08/24
mcg (1,000 unit) tablet
dapagliflozin propanediol 5 mg 5 mg PO DAILY Diabetes 07/08/24
tablet (Farxiga)
finasteride 5 mg tablet 5 mg PO DAILY Urinary Issue 07/08/24
lamotrigine 200 mg tablet 200 mg PO BID Mental Health/Anxiety 07/08/24
metformin 1,000 mg tablet 1,000 mg PO QPM Diabetes 07/08/24
Vital Signs and Labs
-
Vital Signs and Labs:
Vital Signs
Temp Pulse Resp BP Pulse Ox
36.6 C 93 18 120/47 92
07/12/24 09:00 07/12/24 09:07 07/12/24 09:00 07/12/24 09:07 07/12/24 09:00
Lab Results
07/12/24 09:23
07/12/24 09:23
Sodium 139 mmol/L (135-145) 07/12/24 09:23
Potassium 3.6 mmol/L (3.5-5.1) 07/12/24 09:23
BUN 43 mg/dl (9-20) H 07/12/24 09:23
Glucose 180 mg/dl (70-99) H 07/12/24 09:23
Calcium 9.2 mg/dl (8.4-10.2) 07/12/24 09:23
Phosphorus 3.5 mg/dl (2.5-4.5) 07/10/24 07:59
Qfa-P-Oyrtxvzceyo Pept 8790 pg/ml 07/08/24 12:51
LDL Cholesterol, Calc 69 mg/dl 07/09/24 07:37
Vitamin B12 > 1000 pg/ml (496-931) H 07/10/24 07:59
Medications
-
Medications:
Generic Name Dose Route Start Last Admin
Trade Name Freq PRN Reason Stop Dose Admin
Albuterol/Ipratropium 3 ml 07/09/24 10:16
Ipratropium 0.5/Albuterol 3 Mg (3 Ml Ampul) INH
R Q4HPRN PRN
Wheeze
Protocol
Atorvastatin Calcium 10 mg 07/09/24 18:00 07/11/24 17:19
Atorvastatin (Lipitor) 10 Mg Tablet PO 08/06/24 17:59 10 mg
QPM JJ Administration
Carvedilol 3.125 mg 07/10/24 20:00 07/12/24 09:07
Carvedilol 3.125 Mg Tablet PO 08/07/24 19:59 3.125 mg
BID JJ Administration
Clopidogrel Bisulfate 75 mg 07/09/24 08:00 07/12/24 09:07
Clopidogrel 75 Mg Tablet PO 08/06/24 07:59 75 mg
DAILY JJ Administration
Dapagliflozin 10 mg 07/11/24 08:00 07/12/24 09:07
Dapagliflozin (Farxiga) 10 Mg Tablet PO 08/08/24 07:59 10 mg
DAILY JJ Administration
Dextrose 12.5 grams 07/08/24 22:43
Dextrose 50% (0.5 Grams/Ml) 50 Ml Syringe IV 08/05/24 22:42
[id number] PRN
hypoglycemia
Protocol
Finasteride 5 mg 07/09/24 08:00 07/12/24 09:08
Finasteride 5 Mg Tablet PO 08/06/24 07:59 5 mg
DAILY JJ Administration
Furosemide 40 mg 07/11/24 12:00 07/12/24 09:07
Furosemide 40 Mg Tablet PO 08/08/24 11:59 40 mg
DAILY JJ Administration
Glucagon 1 mg 07/08/24 22:43
Glucagon 1 Mg Vial IM 08/05/24 22:42
PRN PRN
hypoglycemia
Protocol
Heparin Sodium 5,000 units 07/09/24 00:00 07/12/24 09:08
Heparin 5,000 Units/Ml 1 Ml Vial SC 08/06/24 00:00 5,000 units
Q8 JJ Administration
Insulin Aspart 0 units 07/09/24 07:30 07/12/24 09:07
Insulin Aspart Low Resistance 300 Units/3 Ml Pen.Injctr SC 08/06/24 07:29 1 units
AC JJ Administration
Protocol
Lamotrigine 200 mg 07/08/24 23:00 07/12/24 09:07
Lamotrigine 100 Mg Tablet PO 08/05/24 22:59 200 mg
BID JJ Administration
Melatonin 3 mg 07/11/24 18:00 07/11/24 17:23
Melatonin 3 Mg Tablet PO 08/08/24 17:59 3 mg
1800 JJ Administration
Metformin HCl 1,000 mg 07/11/24 08:00 07/11/24 17:19
Metformin 1000 Mg Regular Release Tablet PO 08/08/24 07:59 1,000 mg
BID@0800,1700 JJ Administration
Risperidone 1 mg 07/11/24 18:00 07/11/24 17:19
Risperidone 0.5 Mg Orally Disintegrating Tablet PO 08/08/24 17:59 1 mg
1800 JJ Administration
Sodium Chloride 0 flush 07/08/24 21:00 07/12/24 09:09
Sodium Chloride 0.9% (Flush) Syringe IV 08/05/24 20:59 1 flush
PER PROTOCOL JJ Administration
Tamsulosin HCl 0.4 mg 07/09/24 08:00 07/12/24 09:07
Tamsulosin 0.4 Mg Capsule PO 08/06/24 07:59 0.4 mg
DAILY JJ Administration
Thiamine HCl 200 mg 07/08/24 20:00 07/12/24 09:08
Thiamine (100 Mg/Ml) 2 Ml Vial IV 08/05/24 19:59 200 mg
DAILY JJ Administration
Home Medications
-
Home Medications
simvastatin 20 mg tablet 20 mg PO QPM High cholesterol 08/10/15
clopidogrel 75 mg tablet 75 mg PO DAILY ##30 08/11/15
cyanocobalamin (vitamin B-12) 1,000 mcg tablet 5,000 mcg PO DAILY Supplement 05/25/20
propylene glycol 0.6 % eye drops (Systane Balance) 1 drp BOTH EYES PRN PRN dry eyes ##0 05/25/20
tamsulosin 0.4 mg capsule 0.4 mg PO DAILY #30 caps 06/11/20
cholecalciferol (vitamin D3) 25 mcg (1,000 unit) tablet 25 mcg PO DAILY Supplement 07/08/24
dapagliflozin propanediol 5 mg tablet (Farxiga) 5 mg PO DAILY Diabetes 07/08/24
finasteride 5 mg tablet 5 mg PO DAILY Urinary Issue 07/08/24
lamotrigine 200 mg tablet 200 mg PO BID Mental Health/Anxiety 07/08/24
metformin 1,000 mg tablet 1,000 mg PO QPM Diabetes 07/08/24
[2024-07-12 10:33] LABS: Blood Urea Nitrogen 43 mg/dl (9-20); Calcium 9.2 mg/dl (8.4-10.2); Carbon Dioxide 29 mmol/L (22-30); Chloride 97 mmol/L (98-107); Estimated Creatinine Clearance 33 ml/min; Glucose 180 mg/dl (70-99); Magnesium 1.7 mg/dl (1.6-2.3); Potassium 3.6 mmol/L (3.5-5.1); Sodium 139 mmol/L (135-145)
[2024-07-12 11:00] VITALS: BP 106/43
--- NOTE | 2024-07-12 11:06 | W.PN.NEPH.PH ---
Today's Communication / Plan
-
follow BMP
Assessment/Plan
-
IMP:
Confusion/agitation/delirium/toxic metabolic encephalopathy
COPD suspected without acute exacerbation
Pleural effusions
New Heart failure-unknown EF
Hypernatremia
RICA
Leukocytosis
Qkozjd-lpjpeauvbx-ktihkycobx 11.1
Thrombocytosis
PAD.
Right carotid stent.
Diabetes.
Hyperlipidemia.
BPH.
Seizure disorder-on Lamictal-followed by Dr. Davies
Right bundle branch block
Appendectomy.
Former smoker quit 15 years ago.
Plan:
no IVF
follow BMP
will s/o please call with questions
-
-
Date of Service: July 12, 2024
CC / HPI / ROS
-
Chief Complaint:
RICA, hypernatremia
History of Present Illness:
Cr stable 1.6
Na 139
non oliguric with carvajal
no fever
Review of Systems:
no cp or sob
more cooperative today
Labs
-
Labs:
WBC 7.8 10^3/uL (4.8-10.8) 07/12/24 09:23
RBC 3.40 10^6/uL (4.70-6.10) L 07/12/24 09:23
Hgb 11.4 g/dL (13.0-18.0) L 07/12/24 09:23
Hct 33.4 % (39.0-52.0) L 07/12/24 09:23
Plt Count 399 10^3/uL (130-400) 07/12/24 09:23
Sodium 139 mmol/L (135-145) 07/12/24 09:23
Potassium 3.6 mmol/L (3.5-5.1) 07/12/24 09:23
Chloride 97 mmol/L (98-107) L 07/12/24 09:23
Carbon Dioxide 29 mmol/L (22-30) 07/12/24 09:23
BUN 43 mg/dl (9-20) H 07/12/24 09:23
Creatinine 1.6 mg/dL (0.7-1.3) H 07/12/24 09:23
eGFR 41.70 07/12/24 09:23
Glucose 180 mg/dl (70-99) H 07/12/24 09:23
Calcium 9.2 mg/dl (8.4-10.2) 07/12/24 09:23
Phosphorus 3.5 mg/dl (2.5-4.5) 07/10/24 07:59
Ken-S-Lwfvbgyywio Pept 8790 pg/ml 07/08/24 12:51
Albumin 4.0 g/dl (3.5-5.0) 07/08/24 12:51
Physical Exam
-
Vital Signs:
Vital Signs
Temp Pulse Resp BP Pulse Ox
97.9 F 93 18 120/47 92
07/12/24 09:00 07/12/24 09:07 07/12/24 09:00 07/12/24 09:07 07/12/24 09:00
Cardiovascular:: Regular rate and rhythm
Respiratory:: Bilateral: Coarse
Lung Excursion:: Normal
Abdomen:: Nontender and Soft
Bowel Sounds:: Normal
Extremity Edema:: None: Bilateral:
--- NOTE | 2024-07-12 11:15 | CM ---
Chart reviewed and last PT/OT from 07/10/24 note recommends skilled placement, patient is off restraints corrections caseworker reached out to Bria at the [facility] [phone] and spoke with patient's and she is agreeable to skilled at [facility] or
taking paitnt home.
Plan: Await updated notes from PT/OT on patient.
[2024-07-12 12:25] LABS: Glucose - Point of Care 267 mg/dl (70-99)
[2024-07-12] MEDS: NOVOLOG FLEXPEN-LOW RESISTANCE 3 UNITS SC (12:53)
--- NOTE | 2024-07-12 13:00 | W.PN.HOSP.TC ---
Today's Communication/Plan
-
Doing better
SNF discharge tomorrow
Assessment / Plan
Assessment / Plan
Physical Exam
General: Not in acute distress
HEENT: Normocephalic
Respiratory: CTAB
Cardiac: S1/S2 and Regular Rhythm
GI: Soft, Non Tender and Other (Soft hernia)
Musculoskeletal: No Edema
Skin: Warm and Dry
Neuro: Awake, Alert and Nonfocal/grossly intact
Psych: Calm
Assessment/Plan
84 y/o male with past medical history of PAD, Diabetes Mellitus, Seizure Disorder and BPH who presented with confusion. Patient awoke in the middle of the night, and was noted to be disoriented and repeatedly asked about things from his childhood
which was very unusual for the patient. noted patient to be very weak this morning. Upon arrival to the emergency department patient was found to be hypoxic with pulse ox 86% on RA. Patient was an unreliable historian at the present time but
denied cough, chest pain, palpitations or shortness of breath.
Acute Hypoxic Respiratory Failure - RESOLVED - suspected secondary to CHF and Pleural Effusions
Concern for Atelectasis on Chest X-Ray
-NOW ON ROOM AIR
Concern for Toxic Metabolic Encephalopathy - RESOLVED
Intermittent Agitation
-1:1 Sitter and Fall Precautions (he was trying to get up out of bed)
-Treat electrolyte disturbances and causes of hypoxia
-Appreciate neurology consult given patient's history of seizures
-Fall precautions.
-Brain MRI wo contrast if no clinical improvement
-Olanzapine 2.5-5 mg QHS PRN
-Continue Lamictal 200 mg BID
-OP neurology follow up in 1-2 weeks
Acute Heart Failure, unknown type
Elevated proBNP
-Consult Cardiology, appreciate their evaluation and recommendations
-Checked Echocardiogram: EF now 45 to 50% with new global hypokinesis
-Check Troponin and ECG
-Diuretics as per cardiology -- transitioned to PO
-New medication carvedilol 3.125 mg p.o. twice daily as per cardiology
-Continue Farxiga at increased dosage.
-Continue Plavix and atorvastatin.
-Continue to monitor on telemetry
Prolonged QTc
-Avoid QTc-prolonging medications
Possible atrial arrhythmia
-Cardiology consulted, appreciate their evaluation and recommendations
Hypernatremia - RESOLVED
-Suspected dehydration
-Patient was previously started on D5W at 60 cc/hr in the setting of pulmonary edema and possible CHF
-IV thiamine given confusion and since was getting dextrose IV fluids
-Nephrology consulted, appreciate eval and recs
Macrocytic Anemia
-Check Iron (normal) and B12 (high) and Folic Acid (normal)
-Follow-up with hematology outpatient
Elevated Creatinine, suspect RCIA, cardiorenal
-Family denies any known kidney disease
-Check bladder scan
-Recheck creatinine in AM
Peripheral Arterial Disease s/p Right Carotid Stent
-Continue Plavix
Diabetes Mellitus, Type II
-HgbA1c 8.4%
-Continue to hold metformin
-Continue Farxiga -- but at an increased dosage
-Monitor sugars and continue coverage insulin
Hyperlipidemia
-Continue simvastatin
Seizure Disorder
-Check Lamictal level due to confusion, though suspect confusion is related to hypoxia
-Follow-up on Lamictal level
-Continue Lamictal
-Consulted neurology per family request
BPH
-Continue tamsulosin and finasteride
DVT prophylaxis: SC Heparin
Code Status: Full Code
Anticipated Discharge: Within 24 hours
Subjective/Interval History
-
Date of Service: July 12, 2024
Patient was seen and examined. He was doing much better today, and his confirmed he was doing much better.
Objective Data
-
Labs:
Laboratory Results
07/12/24
09:23
WBC 7.8
Hgb 11.4 L
Hct 33.4 L
Plt Count 399
Sodium 139
Potassium 3.6
Chloride 97 L
Carbon Dioxide 29
BUN 43 H
Creatinine 1.6 H
Glucose 180 H
Calcium 9.2
Vital Signs:
Vital Signs
Temp Pulse Resp BP Pulse Ox
97.8 F 75 18 106/43 95
07/12/24 11:00 07/12/24 11:00 07/12/24 09:00 07/12/24 11:00 07/12/24 11:15
I&O
07/11/24 07/12/24 07/13/24
06:59 06:59 06:59
Intake Total 240 / 240 960 / 960
Output Total 950 / 950
Balance -710 / -710 960 / 960
[2024-07-12 15:00] VITALS: BP 118/45
[2024-07-12 16:45] LABS: Glucose - Point of Care 233 mg/dl (70-99)
[2024-07-12] MEDS: RISPERDAL M-TAB (ORALLY DISINTEGRATING) 1 MG PO (17:05)
[2024-07-12] MEDS: MELATONIN 3 MG PO (17:06)
[2024-07-12] MEDS: NOVOLOG FLEXPEN-LOW RESISTANCE 2 UNITS SC (17:06)
[2024-07-12] MEDS: LIPITOR 10 MG PO (17:06)
[2024-07-12 21:49] LABS: Glucose - Point of Care 188 mg/dl (70-99)
[2024-07-12 23:30] VITALS: BP 138/66
[2024-07-13 06:52] LABS: COVID-19 Antigen Negative (Negative)
[2024-07-13 07:10] VITALS: BP 128/52
[2024-07-13 08:02] LABS: Glucose - Point of Care 207 mg/dl (70-99)
[2024-07-13 08:05] LABS: Hematocrit 31.7 % (39.0-52.0); Hemoglobin 10.6 g/dL (13.0-18.0); Mean Corp Hgb Conc. 33.4 g/dL (33.0-37.0); Mean Corpuscular Hgb 32.1 pg (27.0-31.0); Mean Corpuscular Volume 96.1 fL (80.0-94.0); Mean Platelet Volume 9.2 fL (7.4-10.4); Platelet Count 385 10^3/uL (130-400); Red Cell Dist. Width 12.5 % (11.5-14.5); White Blood Cell Count 7.6 10^3/uL (4.8-10.8)
[2024-07-13] MEDS: COREG 3.125 MG PO ×2 (08:08→19:38)
[2024-07-13] MEDS: NOVOLOG FLEXPEN-LOW RESISTANCE 2 UNITS SC ×3 (08:08→16:48)
[2024-07-13] MEDS: LASIX 40 MG PO (08:09)
[2024-07-13] MEDS: FLOMAX 0.4 MG PO (08:09)
[2024-07-13] MEDS: PLAVIX 75 MG PO (08:09)
[2024-07-13] MEDS: FARXIGA 10 MG PO (08:09)
[2024-07-13] MEDS: THIAMINE INJECTION 200 MG IV (08:12)
[2024-07-13] MEDS: LAMICTAL 200 MG PO ×2 (08:12→19:38)
[2024-07-13] MEDS: PROSCAR 5 MG PO (08:12)
[2024-07-13] MEDS: HEPARIN 5000 UNITS SC ×2 (08:27→16:39)
[2024-07-13 09:02] LABS: Blood Urea Nitrogen 50 mg/dl (9-20); Calcium 9.3 mg/dl (8.4-10.2); Carbon Dioxide 31 mmol/L (22-30); Chloride 97 mmol/L (98-107); Estimated Creatinine Clearance 35 ml/min; Glucose 182 mg/dl (70-99); Potassium 3.7 mmol/L (3.5-5.1); Sodium 140 mmol/L (135-145); eGFR 45.06
--- NOTE | 2024-07-13 10:41 | CM ---
manager wound reviewed patient's chart and patient did well overnight, plan is for skilled at the [facility] today, caser spoke with patient's spouse and Bria in admissions at the [facility] today and they are ready to accept patient. COVID
test completed. Physician discussing MRI.
Plan; Needs MRI, discharge held today
[facility]
Report [phone]
--- NOTE | 2024-07-13 10:48 | W.PN.HOSP.TC ---
Today's Communication/Plan
-
Inpatient MRI Brain as per discussion with on-call neurologist today via [place] [facility]
Assessment / Plan
Assessment / Plan
Physical Exam
General: Not in acute distress
HEENT: Normocephalic
Respiratory: CTAB
Cardiac: S1/S2 and Regular Rhythm
GI: Soft, Non Tender and Other (Soft hernia)
Musculoskeletal: No Edema
Skin: Warm and Dry
Neuro: Awake, Alert and Nonfocal/grossly intact
Psych: Calm
Assessment/Plan
84 y/o male with past medical history of PAD, Diabetes Mellitus, Seizure Disorder and BPH who presented with confusion. Patient awoke in the middle of the night, and was noted to be disoriented and repeatedly asked about things from his childhood
which was very unusual for the patient. noted patient to be very weak this morning. Upon arrival to the emergency department patient was found to be hypoxic with pulse ox 86% on RA. Patient was an unreliable historian at the present time but
denied cough, chest pain, palpitations or shortness of breath.
Acute Hypoxic Respiratory Failure - RESOLVED - suspected secondary to CHF and Pleural Effusions
Concern for Atelectasis on Chest X-Ray
-NOW ON ROOM AIR
Concern for Toxic Metabolic Encephalopathy - IMPROVED
Intermittent Agitation
-Was previously on 1:1 Sitter and Fall Precautions (he was trying to get up out of bed)
-Appreciate neurology consult given patient's history of seizures
-Fall precautions.
-Brain MRI wo contrast if no clinical improvement
-Psychiatry ordered Risperidone but consider switching to Olanzapine 2.5-5 mg QHS PRN on discharge as per neurology preference
-Continue Lamictal 200 mg BID
-OP neurology follow up in 1-2 weeks
Seizure Disorder
-Check Lamictal level due to confusion, though suspect confusion is related to hypoxia
-Follow-up on Lamictal level
-Continue Lamictal
-Consulted neurology per family request -- neurology requested MRI be done inpatient prior to discharge given patient is demonstrating echolalia and repeating numbers/words as of 07/13/24
Acute Heart Failure, unknown type
Elevated proBNP
-Consult Cardiology, appreciate their evaluation and recommendations
-Checked Echocardiogram: EF now 45 to 50% with new global hypokinesis
-Check Troponin and ECG
-Diuretics as per cardiology -- transitioned to PO
-New medication carvedilol 3.125 mg p.o. twice daily as per cardiology
-Continue Farxiga at increased dosage.
-Continue Plavix and atorvastatin.
-Continue to monitor on telemetry
Prolonged QTc
-Avoid QTc-prolonging medications
Possible atrial arrhythmia
-Cardiology consulted, appreciate their evaluation and recommendations
Hypernatremia - RESOLVED
-Suspected dehydration
-Patient was previously started on D5W at 60 cc/hr in the setting of pulmonary edema and possible CHF
-IV thiamine given confusion and since was getting dextrose IV fluids
-Nephrology consulted, appreciate eval and recs
Macrocytic Anemia
-Check Iron (normal) and B12 (high) and Folic Acid (normal)
-Follow-up with hematology outpatient
Elevated Creatinine, suspect RICA, cardiorenal
-Family denies any known kidney disease
-Check bladder scan
-Recheck creatinine in AM -- stable at 1.5-1.6
-Appreciate nephrology
Peripheral Arterial Disease s/p Right Carotid Stent
-Continue Plavix
Diabetes Mellitus, Type II
-HgbA1c 8.4%
-Continue to hold metformin
-Continue Farxiga -- but at an increased dosage
-Monitor sugars and continue coverage insulin
Hyperlipidemia
-Continue simvastatin
BPH
-Continue tamsulosin and finasteride
DVT prophylaxis: SC Heparin
Code Status: Full Code
Anticipated Discharge: 24 - 48 hours
Subjective/Interval History
-
Date of Service: July 13, 2024
Patient was seen and examined. He was still repeating numbers and words intermittently, otherwise no other significant symptoms or complaints.
Objective Data
-
Labs:
Laboratory Results
07/13/24
07:29
WBC 7.6
Hgb 10.6 L
Hct 31.7 L
Plt Count 385
Sodium 140
Potassium 3.7
Chloride 97 L
Carbon Dioxide 31 H
BUN 50 H
Creatinine 1.5 H
Glucose 182 H
Calcium 9.3
Vital Signs:
Vital Signs
Temp Pulse Resp BP Pulse Ox
97.5 F 77 16 128/52 92
07/13/24 07:10 07/13/24 07:10 07/13/24 07:10 07/13/24 07:10 07/13/24 07:10
I&O
07/12/24 07/13/24 07/14/24
06:59 06:59 06:59
Intake Total 960 / 960 1200 / 1200
Balance 960 / 960 1200 / 1200
[2024-07-13 12:01] LABS: Glucose - Point of Care 248 mg/dl (70-99)
[2024-07-13 15:10] VITALS: BP 106/50
[2024-07-13 16:20] LABS: Glucose - Point of Care 221 mg/dl (70-99)
[2024-07-13] MEDS: MELATONIN 3 MG PO (16:42)
[2024-07-13] MEDS: LIPITOR 10 MG PO (16:42)
[2024-07-13] MEDS: RISPERDAL M-TAB (ORALLY DISINTEGRATING) 1 MG PO (16:43)
[2024-07-13 21:25] LABS: Glucose - Point of Care 178 mg/dl (70-99)
[2024-07-13 23:13] VITALS: BP 116/69
[2024-07-14] MEDS: HEPARIN 5000 UNITS SC ×2 (00:43→08:54)
[2024-07-14 06:00] VITALS: BMI 21.4
[2024-07-14 07:20] LABS: Glucose - Point of Care 179 mg/dl (70-99)
[2024-07-14 07:54] VITALS: BP 146/53
[2024-07-14] MEDS: NOVOLOG FLEXPEN-LOW RESISTANCE 1 UNITS SC (08:52)
[2024-07-14] MEDS: FLOMAX 0.4 MG PO (08:53)
[2024-07-14] MEDS: PLAVIX 75 MG PO (08:53)
[2024-07-14] MEDS: FARXIGA 10 MG PO (08:53)
[2024-07-14] MEDS: VITAMIN B1 100 MG PO (08:53)
[2024-07-14] MEDS: COREG 3.125 MG PO ×2 (08:53→20:22)
[2024-07-14] MEDS: LASIX 40 MG PO (08:54)
[2024-07-14] MEDS: LAMICTAL 200 MG PO ×2 (08:54→20:21)
[2024-07-14] MEDS: PROSCAR 5 MG PO (08:54)
[2024-07-14 09:09] LABS: Hematocrit 32.1 % (39.0-52.0); Hemoglobin 10.8 g/dL (13.0-18.0); Mean Corp Hgb Conc. 33.6 g/dL (33.0-37.0); Mean Corpuscular Hgb 33.2 pg (27.0-31.0); Mean Corpuscular Volume 98.8 fL (80.0-94.0); Mean Platelet Volume 9.5 fL (7.4-10.4); Platelet Count 417 10^3/uL (130-400); Red Blood Cell Count 3.25 10^6/uL (4.70-6.10); Red Cell Dist. Width 12.8 % (11.5-14.5)
--- NOTE | 2024-07-14 09:11 | W.PN.CARDCBS ---
Addendum entered and electronically signed by Perez Campbell MD 07/14/24 12:22:
84-year-old man admitted with change in mental status and acute heart failure with mildly reduced EF of 45-50% and proBNP of 8790, peak troponin was 0.13
and daughter at bedside, he is lethargic since returning from MRI.
PMH: Right carotid artery stents, diabetes, hyperlipidemia, seizure disorder, right bundle branch block
PSH/FH/SH: Reviewed
Allergies none
Outpatient cardiac meds: Simvastatin and clopidogrel
Current meds clopidogrel 75 mg a day, finasteride 5 mg daily, lamotrigine 200 twice daily, atorvastatin 10 nightly, tamsulosin 0.4 mg daily, subcu heparin, carvedilol 3.125 twice daily, dapagliflozin 10 mg a day, metformin, thiamine and furosemide
20 mg a day
ROS difficult to obtain
146/53, pulse 79, weight is 67.7 kg, down 3 kg since admission, intake and output incomplete, poorly responsive, makes a face with sternal rub, does not withdraw to nailbed pressure, does not appear to be in distress, lungs are clear with limited
exam, regular rate and rhythm, no obvious murmurs JVD okay, edema fairly well-controlled, neuro nonfocal but poorly responsive as above
EKG July 11 sinus rhythm, right bundle branch block, deep lateral T wave inversions
Potassium 3.7, sodium 140, BUN and creatinine 50 and 1.5
Impression:
Acute heart failure with mildly reduced EF
Detectable troponin with lateral T wave inversions
CKD, creatinine 1.4-1.6 compared to 2019
Plan:
From a cardiac standpointHe seems stable.
His heart failure seems controlled.
Will repeat EKG looking for evolution of lateral T wave changes. Unclear whether he had a primary cardiac event as part of his presentation. However our strategy should remain conservative. His troponin was not markedly elevated.
He remains on clopidogrel, presumably as a result of his carotid artery stent. He is on carvedilol, Farxiga, his acute heart failure seems controlled on oral furosemide. We could consider CHERELLE/ARB though with CKD, will hold off for now.
Unclear at present whether mental status is changed. Nursing to discuss with primary service.
We will continue to follow.
Original Note:
Today's Communication / Plan
-
Reduce Lasix to 20 mg p.o.
Replete K
Continue Coreg and increased dose of Farxiga
BMP in 1 week
Anticipate d/c to [facility]
Impression / Plan
-
Family Physician: Nacho Hernandez
Outside Maintenance Worker: Initial consult Dr. Sal
Impression:
Presented 07/09/2024 with altered mental status/confusion
Hypoxemia
Acute heart failure with mildly reduced ejection fraction, proBNP 8790
Abnormal troponin
Hypernatremia
RICA
Peripheral Arterial Disease
s/p Right Carotid Stent
Diabetes Mellitus, Type II
Hyperlipidemia
Seizure Disorder on Lamitrigine, Davies
BPH
RBBB
Appendectomy
Right Carotid Artery Stent
Echo 07/09/2024: EF 45 to 50%. Stage I DD. Mild MR/TR, PAP 25 to 30 mmHg. New global hypokinesis
Plan:
-Heart failure with mildly reduced ejection fraction
-Echo above reviewed with pt and family. EF now 45 to 50% with new global hypokinesis
-New to Coreg 3.125 mg twice a day (started 07/10/24 in pm). BP has been labile (high when agitated and low when relaxed)
-Continue Farxiga 10 mg (dose increased from 5 to 10 mg this admission both for HF and DM), HgA1c 8.4%
-Could consider low-dose CHERELLE/ARB/aldactone if blood pressure and renal function allows as outpt.
-He does not appear to be volume overloaded and denies SOB
-Reduce Lasix to 20 mg (pt was not on Lasix prior to his admission).
-K+ 3.7, replete
-Creat 1.5 (07/13). Would check BMP in 1 week
-Abnormal troponin, peaked 0.131. Suspect nonischemic myocardial injury secondary to acute heart failure exacerbation.
-ECG 07/11/2024 now with new anterolateral T wave inversions. Continue medical management with Plavix, Coreg, Statin, Farxiga. Could consider outpt ischemic evaluation if mental status improves. He would not tolerate ischemic evaluation with current
mental status
-Appreciate input from psychiatry. Per recommendation avoid Haldol or other QTc prolonging agents. Utilize Ativan if needed for agitation
-Patient with history of seizure disorder with sundowning this admission. Neurology saw pt without new recommendations. Needs follow up as outpt with neurology.
-MRI ordered by primary service
-Plan is to sent to [facility] hopefully in next 24 hours
HPI 07/09/2024:
Patient is an 84 y/o male past medical history of PAD, Diabetes Mellitus, Seizure Disorder, history of UTI and BPH who presented 07/08/2024 with altered mental status and confusion. Patient apparently suffered a fall 2 weeks ago and hit back of head
on floor and was evaluated at [facility]. In the byproduct engineer of 07/08/2024 patient awoke disoriented which was different from baseline and when symptoms persisted into the morning associated with weakness patient was brought to emergency department. He
was found to be hypoxic with pulse ox of 86% on room air. Chest x-ray demonstrated small bilateral effusions with increased interstitial markings possibly atelectasis versus pulmonary edema. proBNP was found to be elevated at 8790 initial troponin
0.078. EKG showed sinus tachycardia with right bundle branch block. Pro-Loc was negative. UA did not suggest UTI. Head CT demonstrated moderate atrophy without acute abnormality. Patient was given 1 dose of IV Lasix 40 mg.
Cardiology being asked to see patient for concern for heart failure. At time of this evaluation patient is confused and unable to provide history. He is in restraints with one-to-one watch and attempts to hit and kick me while attempting to
examine him. Phone call placed to /left voice message. History is obtained by review of coordinating medical providers
Progress Note - Outside Maintenance Worker
Subjective
Date of Service: July 14, 2024
Patient seen and evaluated. Patient sitting in chair without complaints. Now following commands and is no longer agitated. is at bedside
Objective
Labs:
07/14/24 08:03
07/13/24 07:29
Labs
Hgb 10.8 g/dL (13.0-18.0) L 07/14/24 08:03
Hct 32.1 % (39.0-52.0) L 07/14/24 08:03
Plt Count 417 10^3/uL (130-400) H 07/14/24 08:03
Sodium 140 mmol/L (135-145) 07/13/24 07:29
Potassium 3.7 mmol/L (3.5-5.1) 07/13/24 07:29
BUN 50 mg/dl (9-20) H 07/13/24 07:29
Creatinine 1.5 mg/dL (0.7-1.3) H 07/13/24 07:29
Glucose 182 mg/dl (70-99) H 07/13/24 07:29
Vital Signs and I&O:
Vital Signs
Temp Pulse Resp BP Pulse Ox
98.3 F 79 18 146/53 94
07/14/24 07:54 07/14/24 07:54 07/14/24 07:54 07/14/24 07:54 07/14/24 07:54
Vital Signs
Temp Pulse Resp BP Pulse Ox
98.3 F 79 18 146/53 94
07/14/24 07:54 07/14/24 07:54 07/14/24 07:54 07/14/24 07:54 07/14/24 07:54
Intake & Output
07/12/24 07/13/24 07/14/24 07/15/24
06:59 06:59 06:59 06:59
Intake Total 960 / 960 1200 / 1200 1260 / 1260
Balance 960 / 960 1200 / 1200 1260 / 1260
Physical Exam
Physical Exam
GEN: No distress, awake, alert, sitting in chair
HEENT: supple, anicteric, mmm
LUNGS: CTA, no wheezes/rales
CV: Reg, S1/S2, no murmur, rub or gallop
ABD: soft, BS+, NT/ND
EXT: No edema, clubbing
NEURO: Gross non-focal
SKIN: No rash, warm, dry
--- NOTE | 2024-07-14 11:36 | W.PN.UPDATE ---
Update Note
Progress Note Update
Pt off the floor for a brain MRI. Reviewed with nursing staff, who reports pt has been better overall, not requiring any restraints, calmer/manageable, benefits from 's presence. Pt is on Risperidone 1 mg and melatonin 30 mg at 1800.
Imp/Rec: TME, with agitation, improving. continue current psychotropic medications. will follow
[2024-07-14 12:13] LABS: Glucose - Point of Care 265 mg/dl (70-99)
[2024-07-14] MEDS: KCL 20 MEQ PO (12:45)
[2024-07-14] MEDS: NOVOLOG FLEXPEN-LOW RESISTANCE 3 UNITS SC (12:45)
[2024-07-14 15:13] VITALS: BP 117/50
--- NOTE | 2024-07-14 15:15 | CM ---
Addendum entered by Agnieszka Carrasco 07/14/24 15:39:
CM met with patient, daughter, and , discussed [facility] can accept [facility], no bed available today as per admissions.
Original Note:
CM reviewed chart, spoke with Breanna from [facility], will review for acceptance for SNF tomorrow, pending bed availability. CM will continue to follow for all discharge planning needs.
Plan; [facility] pending bed availability.
[2024-07-14 16:25] LABS: Glucose - Point of Care 178 mg/dl (70-99)
--- NOTE | 2024-07-14 17:01 | W.PN.HOSP.TC ---
Today's Communication/Plan
-
dc tomorrow
Assessment / Plan
Assessment / Plan
Assessment/Plan
84 y/o male with past medical history of PAD, Diabetes Mellitus, Seizure Disorder and BPH who presented with confusion. Patient awoke in the middle of the night, and was noted to be disoriented and repeatedly asked about things from his childhood
which was very unusual for the patient. noted patient to be very weak this morning. Upon arrival to the emergency department patient was found to be hypoxic with pulse ox 86% on RA. Patient was an unreliable historian at the present time but
denied cough, chest pain, palpitations or shortness of breath.
Acute Hypoxic Respiratory Failure - RESOLVED - suspected secondary to CHF and Pleural Effusions
Concern for Atelectasis on Chest X-Ray
-NOW ON ROOM AIR
Probable baseline multifactorial encephalopathy on top of baseline dementia
Pt approaching optimization
Concern for Toxic Metabolic Encephalopathy - IMPROVED
Intermittent Agitation
-Was previously on 1:1 Sitter and Fall Precautions (he was trying to get up out of bed)
-Appreciate neurology consult given patient's history of seizures
-Fall precautions.
-Brain MRI: 1. No MRI evidence for acute infarct.
2. 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
3. Tiny chronic infarcts in both cerebellar hemispheres.
4. Severe white matter leukoaraiosis in both cerebral hemispheres.
5. Thin subdural fluid collections overlying both frontal lobes and the left parietal lobe (left larger than right) which appear new from 04/19/2016.
6. Moderate diffuse cerebral and cerebellar volume loss.
-Psychiatry ordered Risperidone but consider switching to Olanzapine 2.5-5 mg QHS PRN on discharge as per neurology preference
-Continue Lamictal 200 mg BID
-OP neurology follow up in 1-2 weeks
Seizure Disorder
-Check Lamictal level due to confusion, though suspect confusion is related to hypoxia
-Follow-up on Lamictal level
-Continue Lamictal
-Consulted neurology per family request -- neurology requested MRI be done inpatient prior to discharge given patient is demonstrating echolalia and repeating numbers/words as of 07/13/24
Acute Heart Failure, unknown type
Elevated proBNP
-Consult Cardiology, appreciate their evaluation and recommendations
-Checked Echocardiogram: EF now 45 to 50% with new global hypokinesis
-Check Troponin and ECG
-Diuretics as per cardiology -- transitioned to PO
-New medication carvedilol 3.125 mg p.o. twice daily as per cardiology
-Continue Farxiga at increased dosage.
-Continue Plavix and atorvastatin.
-Continue to monitor on telemetry
Prolonged QTc
-Avoid QTc-prolonging medications
Possible atrial arrhythmia
-Cardiology consulted, appreciate their evaluation and recommendations
Hypernatremia - RESOLVED
-Suspected dehydration
-Patient was previously started on D5W at 60 cc/hr in the setting of pulmonary edema and possible CHF
-IV thiamine given confusion and since was getting dextrose IV fluids
-Nephrology consulted, appreciate eval and recs
Macrocytic Anemia
-Check Iron (normal) and B12 (high) and Folic Acid (normal)
-Follow-up with hematology outpatient
Elevated Creatinine, suspect RICA, cardiorenal
-Family denies any known kidney disease
-Check bladder scan
-Recheck creatinine in AM -- stable at 1.5-1.6
-Appreciate nephrology
Peripheral Arterial Disease s/p Right Carotid Stent
-Continue Plavix
Diabetes Mellitus, Type II
-HgbA1c 8.4%
-Continue to hold metformin
-Continue Farxiga -- but at an increased dosage
-Monitor sugars and continue coverage insulin
Hyperlipidemia
-Continue simvastatin
BPH
-Continue tamsulosin and finasteride
DVT prophylaxis: SC Heparin
Code Status: Full Code
Discussed extensively with family (, dgt) outside room
Plan is to dc to [facility], will have bed tomorrow, with follow up outpt neuro
and dgt were very clear that pt is a DNR and this should be corrected
Anticipated Discharge: Within 24 hours
Subjective/Interval History
-
Date of Service: July 14, 2024
Mentation remains variable
Objective Data
-
Labs:
Laboratory Results
07/14/24
08:03
WBC 8.0
Hgb 10.8 L
Hct 32.1 L
Plt Count 417 H
Vital Signs:
Vital Signs
Temp Pulse Resp BP Pulse Ox
97.5 F 64 17 117/50 95
07/14/24 15:13 07/14/24 15:13 07/14/24 15:13 07/14/24 15:13 07/14/24 15:13
I&O
07/13/24 07/14/24 07/15/24
06:59 06:59 06:59
Intake Total 1200 / 1200 1260 / 1260
Balance 1200 / 1200 1260 / 1260
Review of Systems
-
History Source: Family and Coordinated Provider
Constitutional: Denies Fever
EENT: Reports No Symptoms Reported
Respiratory: Reports No Symptoms
Cardiac: Reports No Symptoms
Musculoskeletal: Reports No Symptoms
Physical Exam
-
General: Well Developed, Well Nourished, No Apparent Distress and Appears Chronically Ill
HEENT: Normocephalic, Atraumatic and Moist Mucous Membranes
Respiratory: Clear to Auscultation; Negative Wheezes, Rales or Rhonchi
Cardiac: Regular Rhythm and S1/S2
GI: Soft, Nontender and Nondistended
Musculoskeletal: No Clubbing, No Cyanosis and No Edema
[2024-07-14] MEDS: HEPARIN SC ×2 (18:44→23:50)
[2024-07-14] MEDS: JANUVIA PO (18:44)
[2024-07-14] MEDS: NOVOLOG FLEXPEN-LOW RESISTANCE SC (18:44)
[2024-07-14] MEDS: LIPITOR PO (18:45)
--- NOTE | 2024-07-14 19:13 | PTCARENOTE ---
pt refused his 1800 meds, insulin and heparin. restaurant kitchen manager will attempt to give them later.
[2024-07-14] MEDS: MELATONIN 3 MG PO (20:21)
[2024-07-14] MEDS: RISPERDAL M-TAB (ORALLY DISINTEGRATING) 1 MG PO (20:22)
[2024-07-14 20:33] LABS: Glucose - Point of Care 198 mg/dl (70-99)
[2024-07-14 23:40] VITALS: BP 141/49
[2024-07-15 06:00] VITALS: BMI 21.0
--- NOTE | 2024-07-15 07:37 | PN.DE.MGMTRT ---
Insulin Management
- -
07/15/2024: Diabetes Management Consult Follow up
84 year old male admitted with Acute Hypoxic Respiratory Failure suspected secondary to CHF and Pleural Effusions
PMH: PAD, Seizure Disorder, BPH and T2DM. A1C 8.4% Cr 1.5--1.3, eGFR 53.50, was taking Farxiga 5mg daily and Metformin 1000mg BID.
Pt awake, alert, pleasantly confused.
Pt is eating all his meals with assistance from his .
07/14 glucose range was 178 to 265
Farxiga has been increased from 5 mg to 10mg daily Metformin remains on HOLD, cr 1.5, eGFR 45.06.
Patient for discharge back to [facility].
Discussed with nurse.
Diabetes History
- -
Type of Diabetes: 2
Pre-Admission Diabetes Regimen
Lab Results
Hemoglobin A1c 8.4 % (4.0-5.6) H 07/09/24 07:37
Insulin Pump Settings
IP Diabetes Regimen
07/14/24 07/14/24 07/14/24
12:11 16:24 20:21
POC Glucose 265 H 178 H 198 H
Meal type: Lunch
Meal type: Breakfast
Amount consumed: 0
Amount consumed: 100%
Patient Education
[2024-07-15] MEDS: NOVOLOG FLEXPEN-LOW RESISTANCE SC (08:30)
[2024-07-15] MEDS: HEPARIN SC (09:31)
[2024-07-15 10:04] LABS: COVID-19 Antigen Negative (Negative)
[2024-07-15] MEDS: VITAMIN B1 100 MG PO (10:32)
[2024-07-15] MEDS: FLOMAX 0.4 MG PO (10:33)
[2024-07-15] MEDS: JANUVIA 50 MG PO (10:33)
[2024-07-15] MEDS: LASIX 20 MG PO (10:33)
[2024-07-15] MEDS: PLAVIX 75 MG PO (10:33)
[2024-07-15] MEDS: FARXIGA 10 MG PO (10:33)
[2024-07-15] MEDS: COREG 3.125 MG PO (10:33)
[2024-07-15] MEDS: PROSCAR 5 MG PO (10:33)
[2024-07-15] MEDS: LAMICTAL 200 MG PO (10:33)
[2024-07-15] MEDS: NOVOLOG FLEXPEN-LOW RESISTANCE 2 UNITS SC (10:41)
[2024-07-15 10:42] LABS: Glucose - Point of Care 231 mg/dl (70-99)
[2024-07-15 11:00] VITALS: BP 121/45
--- NOTE | 2024-07-15 11:01 | W.PN.HOSP.TC ---
Today's Communication/Plan
-
dc now
Assessment / Plan
Assessment / Plan
Assessment/Plan
84 y/o male with past medical history of PAD, Diabetes Mellitus, Seizure Disorder and BPH who presented with confusion. Patient awoke in the middle of the night, and was noted to be disoriented and repeatedly asked about things from his childhood
which was very unusual for the patient. noted patient to be very weak this morning. Upon arrival to the emergency department patient was found to be hypoxic with pulse ox 86% on RA. Patient was an unreliable historian at the present time but
denied cough, chest pain, palpitations or shortness of breath.
Refused labs today
Covid negative
Acute Hypoxic Respiratory Failure - RESOLVED - suspected secondary to CHF and Pleural Effusions
Concern for Atelectasis on Chest X-Ray
-NOW ON ROOM AIR
Probable baseline multifactorial encephalopathy on top of baseline dementia
Pt approaching optimization
Concern for Toxic Metabolic Encephalopathy - IMPROVED
Intermittent Agitation
-Was previously on 1:1 Sitter and Fall Precautions (he was trying to get up out of bed)
-Appreciate neurology consult given patient's history of seizures
-Fall precautions.
-Brain MRI: 1. No MRI evidence for acute infarct.
2. 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
3. Tiny chronic infarcts in both cerebellar hemispheres.
4. Severe white matter leukoaraiosis in both cerebral hemispheres.
5. Thin subdural fluid collections overlying both frontal lobes and the left parietal lobe (left larger than right) which appear new from 04/19/2016.
6. Moderate diffuse cerebral and cerebellar volume loss.
-Psychiatry ordered Risperidone but consider switching to Olanzapine 2.5-5 mg QHS PRN on discharge as per neurology preference
-Continue Lamictal 200 mg BID
-OP neurology follow up in 1-2 weeks
Seizure Disorder
-Check Lamictal level due to confusion, though suspect confusion is related to hypoxia
-Follow-up on Lamictal level
-Continue Lamictal
-Consulted neurology per family request -- neurology requested MRI be done inpatient prior to discharge given patient is demonstrating echolalia and repeating numbers/words as of 07/13/24
Acute Heart Failure, unknown type
Elevated proBNP
-Consult Cardiology, appreciate their evaluation and recommendations
-Checked Echocardiogram: EF now 45 to 50% with new global hypokinesis
-Check Troponin and ECG
-Diuretics as per cardiology -- transitioned to PO
-New medication carvedilol 3.125 mg p.o. twice daily as per cardiology
-Continue Farxiga at increased dosage.
-Continue Plavix and atorvastatin.
-Continue to monitor on telemetry
Prolonged QTc
-Avoid QTc-prolonging medications
Possible atrial arrhythmia
-Cardiology consulted, appreciate their evaluation and recommendations
Hypernatremia - RESOLVED
-Suspected dehydration
-Patient was previously started on D5W at 60 cc/hr in the setting of pulmonary edema and possible CHF
-IV thiamine given confusion and since was getting dextrose IV fluids
-Nephrology consulted, appreciate eval and recs
Macrocytic Anemia
-Check Iron (normal) and B12 (high) and Folic Acid (normal)
-Follow-up with hematology outpatient
Elevated Creatinine, suspect RICA, cardiorenal
-Family denies any known kidney disease
-Check bladder scan
-Recheck creatinine in AM -- stable at 1.5-1.6
-Appreciate nephrology
Peripheral Arterial Disease s/p Right Carotid Stent
-Continue Plavix
Diabetes Mellitus, Type II
-HgbA1c 8.4%
-Continue to hold metformin
-Continue Farxiga -- but at an increased dosage
-Monitor sugars and continue coverage insulin
Hyperlipidemia
-Continue simvastatin
BPH
-Continue tamsulosin and finasteride
DVT prophylaxis: SC Heparin
Code Status: Full Code
Discussed extensively with family (, dgt) outside room
Plan is to dc to [facility], will have bed tomorrow, with follow up outpt neuro
and dgt were very clear that pt is a DNR and this was corrected
Reviewed with ESHA Aaron arrangements completed
dc to [facility] now
see dictated note
More than 30 minutes spent in discharge including
Final examination of the patient
Summarizing hospital stay
Instructions for continuing care to all relevant caregivers
Preparation of discharge records, prescriptions, and referral forms
Total time spent (in minutes): 45
Anticipated Discharge: Today
Subjective/Interval History
-
Date of Service: July 15, 2024
Awake, alert, appears comfortable
Objective Data
-
Labs:
Laboratory Results
07/15/24
06:00
WBC Pending
Hgb Pending
Hct Pending
Plt Count Pending
Vital Signs:
Vital Signs
Temp Pulse Resp BP Pulse Ox
98.7 F 86 16 141/49 96
07/14/24 23:40 07/14/24 23:40 07/14/24 23:40 07/14/24 23:40 07/14/24 23:40
I&O
07/14/24 07/15/24 07/16/24
06:59 06:59 06:59
Intake Total 1260 / 1260 720 / 720
Balance 1260 / 1260 720 / 720
Review of Systems
-
History Source: Family and Coordinated Provider
Constitutional: Denies Fever
EENT: Reports No Symptoms Reported
Respiratory: Reports No Symptoms
Cardiac: Reports No Symptoms
Musculoskeletal: Reports No Symptoms
Physical Exam
-
General: Well Developed, Well Nourished, No Apparent Distress and Appears Chronically Ill
HEENT: Normocephalic, Atraumatic and Moist Mucous Membranes
Respiratory: Clear to Auscultation; Negative Wheezes, Rales or Rhonchi
Cardiac: Regular Rhythm and S1/S2
GI: Soft, Nontender and Nondistended
Musculoskeletal: No Clubbing, No Cyanosis and No Edema
Psych: Calm
--- NOTE | 2024-07-15 11:13 | CM ---
CM spoke with Breanna in Admissions at [facility], able to accept patient today. Covid test ordered. Patient and seen bedside, discussed 1:00 p.m. ambulance transport scheduled. IMM reviewed, signed, placed in chart. CM discussed with
Hospitalist/nursing. Breanna at [facility] updated with transport time. CM will continue to follow for all discharge planning needs.
Plan; [facility], 1:00 p.m. ambulance transport
Report: [phone]
--- NOTE | 2024-07-15 11:14 | W.DS.TRANS ---
DC Summary - Glass [employer]
-
Discharge Instructions:
Discharge Diagnosis/Procedures Dementia with acute encephalopathy
Diet Diabetic, Carb Controlled
Activity With assistance
Driving Restrictions No driving
Bathing Restrictions None
Blood Work BMP in 1 week
Instructions: *PCP/Other Voice Intercept Technician Heart Failure Instructions
Stand-Alone Forms:
Changes to Home Medications: Yes
Discharge Medications:
DC Medications w/original date entered in [facility]
simvastatin 20 mg tablet 20 mg PO QPM High cholesterol 08/10/15
clopidogrel 75 mg tablet 75 mg PO DAILY ##30 08/11/15
cyanocobalamin (vitamin B-12) 1,000 mcg tablet 5,000 mcg PO DAILY Supplement 05/25/20
propylene glycol 0.6 % eye drops (Systane Balance) 1 drp BOTH EYES PRN PRN dry eyes ##0 05/25/20
tamsulosin 0.4 mg capsule 0.4 mg PO DAILY #30 caps 06/11/20
cholecalciferol (vitamin D3) 25 mcg (1,000 unit) tablet 25 mcg PO DAILY Supplement 07/08/24
dapagliflozin propanediol 5 mg tablet (Farxiga) 5 mg PO DAILY Diabetes 07/08/24
finasteride 5 mg tablet 5 mg PO DAILY Urinary Issue 07/08/24
lamotrigine 200 mg tablet 200 mg PO BID Mental Health/Anxiety 07/08/24
metformin 1,000 mg tablet 1,000 mg PO QPM Diabetes 07/08/24
carvedilol 3.125 mg tablet 3.125 mg PO BID #60 tabs 07/15/24
furosemide 20 mg tablet 20 mg PO DAILY #30 tabs 07/15/24
sitagliptin phosphate 50 mg tablet (Januvia) 50 mg PO DAILY #30 tabs 07/15/24
Home Medication Changes
Coreg, Lasix and Januvia added
Pending Results: No
--- NOTE | 2024-07-15 14:40 | W.PN.CARDCBS ---
Addendum entered and electronically signed by Bonilla Moreira MD 07/15/24 16:57:
I saw and examined the patient.
The Luggage Liner's note was reviewed and I agree with the note.
Comment: Briefly, 84-year-old man presenting with altered mental status and hypoxia found to be in acute decompensated heart failure
Unfortunately hospital course has been complicated by delirium and therefore it is difficult to ascertain any ongoing symptoms at this time
Transthoracic echocardiogram here with mildly reduced left ventricular ejection fraction for which Coreg was started
Volume status appears reasonable today on the exam
Agree with standing low-dose oral Lasix on discharge
Stable cardiac status
I offered to arrange outpatient cardiology follow-up however patient's would prefer an office closer to their assisted living facility
Rest per Hanane Celeste
Original Note:
Today's Communication / Plan
-
Cont Lasix 20 mg PO daily
Cardiology office will contact patient's to arrange f/u
Impression / Plan
-
Family Physician: Nacho Hernandez
Dealership General Manager: Initial consult Dr. Sal
Impression:
Presented 07/09/2024 with altered mental status/confusion
Hypoxemia
Acute heart failure with mildly reduced ejection fraction, proBNP 8790
Abnormal troponin
Hypernatremia
RICA.
Peripheral Arterial Disease
s/p Right Carotid Stent
Diabetes Mellitus, Type II
Hyperlipidemia
Seizure Disorder on Lamotrigine, Davies
BPH
RBBB
Appendectomy
Right Carotid Artery Stent
Echo 08/11/15: EF 55-60%
Echo 07/09/2024: EF 45 to 50%. Stage I DD. Mild MR/TR, PAP 25 to 30 mmHg. New global hypokinesis
Plan:
-Weight down 3 lbs overnight with Lasix 40 mg IV daily. Patient was not taking a diuretic prior to admission. Lasix 20 mg PO daily at time of d/c.
-EF 45-50% by echo this admission and previously 55-60% by echo in 2015.
-New to Coreg 3.125 mg BID
-New to Januvia 50 mg daily and Farxiga 5 mg daily continued
-Not able to start CHERELLE/ARB/aldosterone antagonist due to RICA with diuresis. Will re-evaluate as an outpatient.
-Troponin peaked at 0.131 and will be managed as a nonischemic myocardial injury Troponin elevation.
-Outpatient dose of Plavix continued. Patient is not chronically on aspirin.
-Consider outpatient ischemic evaluation if mental status improves and pending his improvement at rehab at [facility].
-Appreciate input from psychiatry. Risperdal ordered during hospitalization, but not continued on d/c med list.
-Patient with history of seizure disorder with sundowning this admission. Neurology saw pt without new recommendations. Needs follow up as outpt with neurology.
-Cardiology office will call patient's to arrange hospital follow up for CHF and elevated Troponin
HPI 07/09/2024:
Patient is an 84 y/o male past medical history of PAD, Diabetes Mellitus, Seizure Disorder, history of UTI and BPH who presented 07/08/2024 with altered mental status and confusion. Patient apparently suffered a fall 2 weeks ago and hit back of head
on floor and was evaluated at [facility]. In the early head start director of 07/08/2024 patient awoke disoriented which was different from baseline and when symptoms persisted into the morning associated with weakness patient was brought to emergency department. He
was found to be hypoxic with pulse ox of 86% on room air. Chest x-ray demonstrated small bilateral effusions with increased interstitial markings possibly atelectasis versus pulmonary edema. proBNP was found to be elevated at 8790 initial troponin
0.078. EKG showed sinus tachycardia with right bundle branch block. Pro-Loc was negative. UA did not suggest UTI. Head CT demonstrated moderate atrophy without acute abnormality. Patient was given 1 dose of IV Lasix 40 mg.
Cardiology being asked to see patient for concern for heart failure. At time of this evaluation patient is confused and unable to provide history. He is in restraints with one-to-one watch and attempts to hit and kick me while attempting to
examine him. Phone call placed to /left voice message. History is obtained by review of coordinating medical providers
Progress Note - Dealership General Manager
Subjective
Date of Service: July 15, 2024
No chest pain
Objective
Labs:
07/13/24 07:29
Labs
Hgb 10.8 g/dL (13.0-18.0) L 07/14/24 08:03
Hct 32.1 % (39.0-52.0) L 07/14/24 08:03
Plt Count 417 10^3/uL (130-400) H 07/14/24 08:03
Sodium 140 mmol/L (135-145) 07/13/24 07:29
Potassium 3.7 mmol/L (3.5-5.1) 07/13/24 07:29
BUN 50 mg/dl (9-20) H 07/13/24 07:29
Creatinine 1.5 mg/dL (0.7-1.3) H 07/13/24 07:29
Glucose 182 mg/dl (70-99) H 07/13/24 07:29
Vital Signs and I&O:
Vital Signs
Temp Pulse Resp BP Pulse Ox
97.6 F 89 18 121/45 92
07/15/24 11:00 07/15/24 11:00 07/15/24 11:00 07/15/24 11:00 07/15/24 11:00
Vital Signs
Temp Pulse Resp BP Pulse Ox
97.6 F 89 18 121/45 92
07/15/24 11:00 07/15/24 11:00 07/15/24 11:00 07/15/24 11:00 07/15/24 11:00
Intake & Output
07/13/24 07/14/24 07/15/24 07/16/24
06:59 06:59 06:59 06:59
Intake Total 1200 / 1200 1260 / 1260 720 / 720
Balance 1200 / 1200 1260 / 1260 720 / 720
Physical Exam
Physical Exam
GEN: NAD
LUNGS: No audible wheeze
CV: Reg
EXT: No edema B/L
NEURO: No lateralizing weakness
--- NOTE | 2024-07-16 14:44 | W.HF.CON ---
Heart Failure
- LV Function
Left ventricular function study result: LV Ejection fraction >40%
Ejection Fraction Percentage: 45-50
- ARNI
Patient already on ARNI: No
Heart Failure ARNI Not Indicated: LV Ejection Fraction >/= 40%
- ACEI/ARB
Patient already on ACEI/ARB: No
Heart Failure ACEI/ARB Not Indicated: LV Ejection Fraction > 40%
- Beta Olive
Patient already on Evidence Based Beta Olive: Yes
- Mineralocorticord Receptor Antagonist
Patient already on MRA: No
Heart Failure MRA Not Indicated: LV Ejection Fraction > 40%
- SGLT-2 Inhibitor
Patient already on SGLT-2 Inhibitor: Yes
- NYHA CHF Classification
NYHA CHF Classification Level: Class III - Symptoms w/ min exertion, interferes w/ nml daily activity
- ACC/AHA Stage
ACC/AHA Stage: Stage C: Symptomatic Heart Failure
== END 2024-07-15 13:15 | DRG 91 ==
LOC: 4 WEST ACU 20:01
PROVIDERS: Nurse Practitioner; Nurse Practitioner Gerontology; Physician Assistant; Physician Assistant Medical; ADMITTING PHYSICIAN Hospitalist; ATTENDING PHYSICIAN Internal Medicine; CONSULT PHYSICIAN Internal Medicine Critical Care Medicine; CONSULT PHYSICIAN Psychiatry & Neurology Neurology; CONSULT PHYSICIAN Psychiatry & Neurology Psychiatry; EMERGENCY PHYSICIAN Emergency Medicine; FAMILY PHYSICIAN Internal Medicine; OTHER PHYSICIAN Internal Medicine; OTHER PHYSICIAN Internal Medicine Cardiovascular Disease
DX: G92.8 Other toxic encephalopathy (principal); J96.01 Acute respiratory failure with hypoxia; E87.0 Hyperosmolality and hypernatremia; I50.20 Unspecified systolic (congestive) heart failure; N17.9 Acute kidney failure, unspecified; F03.94 Unspecified dementia, unspecified severity, with anxiety; F03.92 Unspecified dementia, unspecified severity, with psychotic disturbance; I13.0 Hypertensive heart and chronic kidney disease with heart failure and stage 1 through stage 4 chronic kidney disease, or unspecified chronic kidney disease; Z87.891 Personal history of nicotine dependence; N18.9 Chronic kidney disease, unspecified; E11.22 Type 2 diabetes mellitus with diabetic chronic kidney disease; E11.51 Type 2 diabetes mellitus with diabetic peripheral angiopathy without gangrene; Z79.02 Long term (current) use of antithrombotics/antiplatelets; N40.1 Benign prostatic hyperplasia with lower urinary tract symptoms; E78.00 Pure hypercholesterolemia, unspecified; Z11.52 Encounter for screening for COVID-19
CPT/HCPCS: 70450; 70551; 71046; 80048; 80053; 80061; 80175; 81003; 82570; 82607; 82728; 82746; 82805; 82962; 83036; 83540; 83550; 83690; 83735; 83880; 83930; 83935; 84100; 84145; 84156; 84300; 84443; 84484; 85025; 85027; 87070; 87811; 93005; 93306; 93970; 97163; 97166; 97530; 97535; 99285

== ENCOUNTER 2024-07-16 05:19 | Emergency (ER) | payer OTHER, SELFPAY ==
[2024-07-16 06:00] VITALS: BP 133/55
--- NOTE | 2024-07-16 06:20 | ED.GENMED ---
History of Present Illness
General
Chief Complaint: Change in Mental Status
Source: patient
Exam Limitations: dementia
Time Seen by Provider: 07/16/24 06:17
History of Present Illness
History of Present Illness:
See MDM
Past History
Past History
ED Past Medical History: CVA (/TIA), HTN, Hypercholesterolemia, NIDDM, Seizures and Other (Postoperative urinary retention. Obstructive sleep apnea, kidney stones)
ED Past Surgical History: Other (Eye surgery, carotid endarterectomy 06/09/20)
Social History
Tobacco: Non-smoker
Alcohol: None
Drug: None
Personal:
Living: assisted living ([facility])
Employment: Retired
Family History
Family History: Other (Reviewed and non-contributory)
Phy Exam
Physical Exam
Physical Exam:
See MDM
Course
Orders/Labs/Results
Orders:
Orders
07/16/24 06:38
Urinalysis Reflex To Culture Urgent
Date Specimen was Collected: 07/16/24
Time Specimen was Collected: 06:36
Urine Microscopic Reflex Cult Urgent
Abnormal Lab Results
07/16/24
06:38
Urine Glucose 3+ A
(Negative)
Urine Albumin (Reflex) 1+ A
(Neg - Trace)
Vital Signs
Initial and Last Documented VS:
Initial Vital Signs
Temp
97.7 F
07/16/24 05:22
Last Documented Vital Signs
Temp Pulse Resp BP Pulse Ox
97.7 F 91 15 151/62 96
07/16/24 05:22 07/16/24 07:15 07/16/24 07:15 07/16/24 07:00 07/16/24 07:15
MDM/Problems Addressed
Differential Diagnosis Includes:
HPI and MDM Narrative:
84-year-old male presenting for evaluation of altered mental status. Patient spent his first night in the dementia unit down to a verbal altercation with staff. Patient was upset. Due to being combative, he was sent to the emergency department
for evaluation. While here, patient sleeping comfortably and offers no complaint. When I woke him up, patient is more concerned about getting bambi debbie. He offers no complaints.
Physical exam
General: Well appearing and non-toxic
HEENT: protecting airway
Neck: appears supple
CV: No evidence of cyanosis
Resp: No accessory muscle use
Abd: Non-distended
Extremities: No deformities
Neuro: alert. Pleasantly demented
Psych: Flat affect
Skin: Intact
Problems Addressed including Acute and Chronic Conditions affecting care:
1. Altered mental status
Acuity: acute
Prognosis: stable
Details: Likely in setting of his ongoing dementia. He has no focal deficits. He is well-appearing and nontoxic
Updates
Urinalysis negative for infection
Differential Diagnosis (but not limited to): Dementia, UTI
Testing considered: Blood work
Drug therapy (if applicable): OTC meds, please see d/c instruction regarding Rx drugs
Amount and/or Complexity of Data Reviewed
Clinical info obtained from: Patient
External data reviewed: N/A
Labs I independently reviewed (but not limited to): Urinalysis
Radiology: N/A
Pulse Ox: not hypoxic
EKG independently reviewed: N/A
Painter Rough: N/A
Critical Care: N/A
Risk of Complication:
Social Determinants of health: Good social support
Discussed with other providers: N/A
Escalation of Care includes Admit/Obs: After being observed in the Emergency Department, pt stable for discharge.
Occasional wrong word or 'sound a like' substitutions may have occurred due to the inherent limitations of voice recognition software. Read the chart carefully and recognize, using context, where substitutions have occurred.
*Critical Care Note
Total Time (30-74mins, 75-104mins- exclusive of procedures): Not Applicable
ED Attending Note
-
Portions of this chart may have been created with voice recognition software.� Occasional wrong word or��sound alike� substitutions may have occurred due to the inherent limitations of voice recognition software.
Discharge Plan
Departure
Patient Disposition: Home (Routine Discharge)
Date of Disposition: 07/16/24
Time of Disposition: 07:40
Patient with high blood pressure during this ER visit?: Yes
Discharge Problem:
Dementia
Instructions: Dementia (DC)
Prescriptions:
No Action
simvastatin 20 MG tablet
20 mg PO QPM
clopidogrel 75 MG tablet
75 mg PO DAILY Qty: 30 0RF
cyanocobalamin (vitamin B-12) 1,000 MCG tablet
5,000 mcg PO DAILY
Systane Balance 0.6 % Drops
1 drp BOTH EYES PRN PRN (Reason: dry eyes) Qty: 0
tamsulosin 0.4 MG capsule
0.4 mg PO DAILY Qty: 30 0RF
lamotrigine 200 mg tablet
200 mg PO BID
metformin 1,000 mg tablet
1,000 mg PO DAILY
finasteride 5 mg tablet
5 mg PO DAILY
cholecalciferol (vitamin D3) 25 mcg (1,000 unit) Tablet
25 mcg PO DAILY
dapagliflozin propanediol [Farxiga] 5 mg tablet
5 mg PO DAILY
carvedilol 3.125 mg Tablet
3.125 mg PO BID Qty: 60 3RF
Januvia 50 mg Tablet
50 mg PO DAILY Qty: 30 3RF
furosemide 20 mg Tablet
20 mg PO DAILY Qty: 30 0RF
olanzapine 2.5 mg Tablet
2.5 mg PO DAILY
Referrals:
Alan,Varmelidaana, MD [Family Provider] -
Activity Restrictions/Additional Instructions:
Please return for any worsening symptoms.
You may return at any time if you have further concerns.
Please follow up with your doctor at the first available appointment, preferably this week.
Interventions
Interventions:
*Risk Screen - Suicide Last Done: 07/16/24 05:22
*General Assessment Last Done: 07/16/24 05:22
*Neglect/Abuse Screening Last Done: 07/16/24 05:22
ED- Fall Risk Assessment Last Done: 07/16/24 05:22
*ED COVID-19 Vaccine History Last Done: 07/16/24 05:22
ED- Pulmonary Assessment Last Done: 07/16/24 05:22
ED- Neurological Assessment Last Done: 07/16/24 05:22
ED Swallowing Screen Last Done: 07/16/24 06:41
Discharge Date and Time
Print Language: SERBIAN
[2024-07-16 07:00] VITALS: BP 151/62
[2024-07-16 07:09] LABS: Urine Albumin 1+ (Neg - Trace); Urine Bilirubin Negative (Negative); Urine Character Clear (Clear); Urine Color Yellow; Urine Glucose 3+ (Negative); Urine Ketone Negative (Negative); Urine Leukocyte Negative (Negative); Urine Nitrite Negative (Negative); Urine Occult Blood Negative (Negative); Urine Urobilinogen Negative (Neg - 1+)
[2024-07-16 07:53] LABS: Urine Hyaline Cast 0-2 /LPF (0-2)
[2024-07-16 07:54] LABS: Urine Amorphous Seen; Urine Red Blood Cell 0-2 /HPF (0-2); Urine White Cell 0-2 /HPF (0-5)
[2024-07-16 07:56] LABS: Glucose - Point of Care 221 mg/dl (70-99)
[2024-07-16 08:00] VITALS: BP 141/66
[2024-07-16 09:00] VITALS: BP 134/52
[2024-07-16 10:00] VITALS: BP 136/56
[2024-07-16 11:00] VITALS: BP 145/56
== END 2024-07-16 11:40 | disposition home or self-care (01) ==
LOC: EMR 05:19
PROVIDERS: EMERGENCY PHYSICIAN Student in an Organized Health Care Education/Training Program; FAMILY PHYSICIAN Internal Medicine Geriatric Medicine
DX: F03.90 Unspecified dementia, unspecified severity, without behavioral disturbance, psychotic disturbance, mood disturbance, and anxiety (principal); E11.9 Type 2 diabetes mellitus without complications; E78.00 Pure hypercholesterolemia, unspecified; G47.33 Obstructive sleep apnea (adult) (pediatric); I10 Essential (primary) hypertension; Z86.73 Personal history of transient ischemic attack (TIA), and cerebral infarction without residual deficits
CPT/HCPCS: 99283; 81003; 81015; 82962

== ENCOUNTER → 2025-07-01 14:37 | Outpatient (REF) | payer OTHER, SELFPAY | LOC: HWRCS 14:37 | PROVIDERS: ATTENDING PHYSICIAN Internal Medicine Cardiovascular Disease; FAMILY PHYSICIAN Internal Medicine | DX: I50.20 Unspecified systolic (congestive) heart failure (principal) | CPT/HCPCS: 93306 ==